=== PATIENT | male | born 1955 | race Caucasian/White ===

== ENCOUNTER 2020-04-22 07:51 | Day surgery (SDC) | payer OTHER, SELFPAY ==
[2020-04-19 10:04] VITALS: BMI 35.2
--- NOTE | 2020-04-20 09:56 | HO.ANESPROP2 ---
Documented by User: Sandy Hope 04/21/20 13:45 HPI - Anesthesia Eval Consult details Narrative: 64yo M for Colonoscopy [facility] Past Medical History Medical History (Updated 04/19/20 @ 10:15 by Stacy Canales) Arthritis Asthma Back pain COVID-19 virus antibody negative Diabetes Elevated cholesterol GERD (gastroesophageal reflux disease) History of pericarditis HTN (hypertension) Suspected sleep apnea Surgical History Surgical History (Updated 04/19/20 @ 10:15 by Stacy Canales) H/O total hip arthroplasty Hx of colonoscopy Social History Social History Smoking Status: Never smoker Use of substances other than those prescribed or required for medical reasons: No Have you been hit, kicked, punched, or otherwise hurt by someone within the past year? If so, by whom?: No Advance Directives Information Provided: No Recently lost weight without trying: No Meds Allergies Allergy/AdvReac Type Severity Reaction Status Date / Time No Known Allergies Allergy Unverified 04/07/20 15:02 [No Known Allergies*] Home Medications Medication Instructions Recorded Confirmed Type losartan 1 tab PO DAILY 04/18/20 04/22/20 History albuterol 2 mcg INHALATION Q4-6H PRN 04/19/20 04/19/20 History diltiazem HCl 1 cap PO QAM 04/19/20 04/22/20 History metformin 1,000 mg PO QAM 04/19/20 04/22/20 History metformin 500 mg PO QPM 04/19/20 04/22/20 History omeprazole 1 cap PO DAILY 04/19/20 04/22/20 History rosuvastatin 1 tab PO DAILY 04/19/20 04/22/20 History Exam Exam Date and Time: April 20, 2020 0956 Height,Weight and Vital Signs: Height 5 ft 10 in Weight 111.13 kg Pertinent Lab Results Pertinent Lab Results: 01/25/20 Na 141 K 3.8 Cl 103 CO2 25 Bun 18 (H) Creat 1.00 02/11/20 WBC 8.1 HCT 13.9 HGB 41.8 PLT 292 12/31/19 A1C 7.1 EKG 01/25/20: ST @ 113, occ and consecutive PVC, ?LVH, nonspecific ST abn Assessment and Plan Assessment Anesthesia Assessment: Chart Reviewed (04/20/20 ) Documented by User: Radha Kumar 04/22/20 09:04 [facility] Past Medical History Medical History (Updated 04/19/20 @ 10:15 by Stacy Canales) Arthritis Asthma Back pain COVID-19 virus antibody negative Diabetes Elevated cholesterol GERD (gastroesophageal reflux disease) History of pericarditis HTN (hypertension) Suspected sleep apnea Family History Family history of problems with anesthesia: No Surgical History Surgical History (Updated 04/19/20 @ 10:15 by Stacy Canales) H/O total hip arthroplasty Hx of colonoscopy History of Problems with Anesthesia: No Social History Social History Smoking Status: Never smoker Use of substances other than those prescribed or required for medical reasons: No Have you been hit, kicked, punched, or otherwise hurt by someone within the past year? If so, by whom?: No Advance Directives Information Provided: No Recently lost weight without trying: No Meds Allergies Allergy/AdvReac Type Severity Reaction Status Date / Time No Known Allergies Allergy Unverified 04/07/20 15:02 [No Known Allergies*] Home Medications Medication Instructions Recorded Confirmed Type losartan 1 tab PO DAILY 04/18/20 04/22/20 History albuterol 2 mcg INHALATION Q4-6H PRN 04/19/20 04/19/20 History diltiazem HCl 1 cap PO QAM 04/19/20 04/22/20 History metformin 1,000 mg PO QAM 04/19/20 04/22/20 History metformin 500 mg PO QPM 04/19/20 04/22/20 History omeprazole 1 cap PO DAILY 04/19/20 04/22/20 History rosuvastatin 1 tab PO DAILY 04/19/20 04/22/20 History Exam Height,Weight and Vital Signs: Vital Signs Temp Pulse Resp BP Pulse Ox 04/22/20 08:23 97.7 F 86 18 154/81 H 98 Airway Mallampati Class: II TM Dist: >3cm Neck ROM: Full Loose/Missing/Broken Teeth: No Heart: RRR Lungs: CTAB Assessment and Plan Assessment Anesthesia Assessment: Anesthesia Plan Discussed and Consent Obtained Final Anesthetic Review NPO: Yes Intake Type: Clears Intake Timing: Greater than 8 hours and Solids Intake Timing: Greater than 8 hours ASA Class: III Final Preanesthetic Review: No Changes in Pt Med Stat, Meds & Allergies Reviewed, Consent Obtained/Reviewed, Med/Surg/Anes Hx Reviewed and Anes Risks/Benef Reviewed Patient Risk: Intermediate Procedure Risk: Low Anesthetic Plan Anesthetic Plan: MAC: Disposition: Standard PACU
[2020-04-22 08:23] VITALS: BP 154/81; PULSE 86; RESP 18; TEMP 36.5; O2SAT 98
[2020-04-22 08:30] LABS: Glucose, Whole Blood 137 mg/dL (60-115)
[2020-04-22] MEDS: Lactated Ringers 1,000 ML 100 ML IVCONT (08:39)
[2020-04-22 09:11] LABS: Glucose, Whole Blood 137 mg/dL (60-115)
[2020-04-22 09:40] VITALS: BP 114/66; PULSE 79; RESP 22; TEMP 36.2; O2SAT 96
[2020-04-22 09:52] VITALS: BP 117/73; PULSE 94; RESP 18; O2SAT 95
--- NOTE | 2020-04-22 10:19 | HO.POSTANES ---
Post Anesthesia Evaluation Post Anesthesia Evaluation Vital Signs: Vital Signs Temp Pulse Resp BP Pulse Ox 04/22/20 09:52 94 18 117/73 95 04/22/20 09:40 97.1 F 79 22 H 114/66 96 04/22/20 08:23 97.7 F 86 18 154/81 H 98 Anesthesia: Monitored Mental Status: Awake Pain Control: Satisfactory Nausea/Vomiting: None Hydration: Adequate Anesthesia-Related Issues: No Anes. Related Issues
--- NOTE | 2020-04-22 13:29 | OP_ITS ---
SURGEON: Boris Mota MD INDICATIONS: Colon cancer screening. PREOPERATIVE DIAGNOSIS: POSTOPERATIVE DIAGNOSIS: PROCEDURE PERFORMED: Colonoscopy to the terminal ileum with biopsy and snare polypectomy. ESTIMATED BLOOD LOSS: COMPLICATIONS: ANESTHESIA: Monitored anesthesia care. ASSISTANTS: SPECIMENS: DESCRIPTION OF PROCEDURE: The history and physical performed. The risks and benefits of the procedure were explained to the patient and informed consent was obtained. The patient was placed in the left lateral decubitus position. A digital rectal exam was performed and was found to be normal. The Olympus pediatric video colonoscope was introduced into the rectum and advanced to the cecum without difficulty. The cecum was identified by transillumination, palpation, and identification of ileocecal valve. Examination was performed. The scope was removed. He tolerated the procedure well and was returned to the recovery area in stable condition. FINDINGS: The terminal ileum was normal. There was a 2.5 cm lipoma involving the bottom aspect of the ileocecal valve. This had a typical appearance with a pillow sign and yellowish fatty tissue on deep biopsy. Four biopsies were obtained. There was a 10 x 12 mm polyp in the right colon, which was piecemeal resected and recovered via suction. No other polyps were identified. There was mild sigmoid diverticulosis. Retroflexed examination showed small internal hemorrhoids. IMPRESSION: Colon polyp, diverticulosis. RECOMMENDATION: Follow up the biopsy results. MD PRATIK Marcelo/LEONARDO / [id number]
== END 2020-04-22 10:45 | disposition home or self-care (01) ==
PROVIDERS: PCP Internal Medicine; Visit Provider Internal Medicine Gastroenterology
PROC: 0DJD8ZZ Inspection of Lower Intestinal Tract, Via Natural or Artificial Opening Endoscopic (ICD-10-PCS; CPT 45378; principal; 2020-04-22 08:40)
DX: Z12.11 Encounter for screening for malignant neoplasm of colon (principal); D12.2 Benign neoplasm of ascending colon; K57.30 Diverticulosis of large intestine without perforation or abscess without bleeding; K64.8 Other hemorrhoids; D17.5 Benign lipomatous neoplasm of intra-abdominal organs
CPT/HCPCS: 45380; 82947; 88305

== ENCOUNTER 2020-05-09 19:23 | Outpatient (REF) | payer OTHER, SELFPAY | END 2020-05-09 19:40 | LOC: HO.SL 19:23 | PROVIDERS: Visit Provider Psychiatry & Neurology Neurology | DX: G47.33 Obstructive sleep apnea (adult) (pediatric) (principal) | CPT/HCPCS: 95811 ==

== ENCOUNTER 2020-06-09 07:26 | Outpatient (REF) | payer OTHER, SELFPAY ==
[2020-06-09 07:57] LABS: COVID-19 Test Negative (Negative)
== END 2020-06-09 07:27 | disposition home or self-care (01) ==
LOC: HO.EMPCOV 07:26
PROVIDERS: Visit Provider Internal Medicine
DX: Z20.828 Contact with and (suspected) exposure to other viral communicable diseases (principal)
CPT/HCPCS: 87635; C9803

== ENCOUNTER 2020-06-28 10:49 | Outpatient (REF) | payer OTHER, SELFPAY ==
--- NOTE | 2020-06-28 10:53 | XR_ITS ---
EXAMINATION: BILATERAL KNEE X-RAY CLINICAL INFORMATION: Right knee pain COMPARISON: None TECHNIQUE: Standing AP view of both knees and lateral and sunrise view of the right knee FINDINGS: Right: There is slight varus angulation at the knee joint. Bone alignment is otherwise normal. No fracture or dislocation is seen. There is arthritis at the medial femoral tibial and patellofemoral joints with joint space narrowing and osteophyte formation. There is a small joint effusion. Standing AP view of the left knee demonstrates medial femoral tibial joint space narrowing. XR/XR knee standing BI IMPRESSION: Right knee: Mild varus angulation. Arthritis at the medial femoral tibial and patellofemoral joints and small joint effusion. Left knee medial femoral tibial joint space narrowing.
--- NOTE | 2020-06-28 10:53 | XR_ITS ---
EXAMINATION: BILATERAL KNEE X-RAY CLINICAL INFORMATION: Right knee pain COMPARISON: None TECHNIQUE: Standing AP view of both knees and lateral and sunrise view of the right knee FINDINGS: Right: There is slight varus angulation at the knee joint. Bone alignment is otherwise normal. No fracture or dislocation is seen. There is arthritis at the medial femoral tibial and patellofemoral joints with joint space narrowing and osteophyte formation. There is a small joint effusion. Standing AP view of the left knee demonstrates medial femoral tibial joint space narrowing. XR/XR knee RT 2V IMPRESSION: Right knee: Mild varus angulation. Arthritis at the medial femoral tibial and patellofemoral joints and small joint effusion. Left knee medial femoral tibial joint space narrowing.
== END 2020-06-28 10:50 | disposition home or self-care (01) ==
LOC: HO.HOSX 10:49
PROVIDERS: PCP Internal Medicine; Referring Provider Internal Medicine; Visit Provider Orthopaedic Surgery
DX: M17.11 Unilateral primary osteoarthritis, right knee (principal)
CPT/HCPCS: 73560; 73565

== ENCOUNTER 2020-08-09 09:28 | Outpatient (REF) | payer OTHER, SELFPAY ==
[2020-08-09 10:38] LABS: Estimated Average Glucose 166 mg/dL; Hemoglobin A1c % 7.4 %
[2020-08-09 10:56] LABS: Alanine Aminotransferase 34 U/L (0-40); Albumin Level 4.4 g/dL (3.5-5.0); Alkaline Phosphatase 69 U/L (39-117); Anion Gap 16 (12-20); Aspartate Amino Transferase 21 U/L (5-37); Bilirubin Total 0.4 mg/dL (0.0-1.0); Blood Urea Nitrogen 17 mg/dL (9-16); Calcium 9.4 mg/dL (8.4-10.2); Carbon Dioxide 23 mmol/L (22-29); Chloride 103 mmol/L (96-108); Estimated Glomerular Filt Rate > 60; Glucose Random 158 mg/dL (60-115); Potassium 4.5 mmol/l (3.3-5.1); Sodium 137 mmol/L (135-145); Total Protein 7.2 g/dL (6.5-8.0)
== END 2020-08-09 09:29 | disposition home or self-care (01) ==
LOC: HO.10HDL 09:28
PROVIDERS: Visit Provider Internal Medicine
DX: E11.9 Type 2 diabetes mellitus without complications (principal); G47.33 Obstructive sleep apnea (adult) (pediatric); I10 Essential (primary) hypertension; J45.909 Unspecified asthma, uncomplicated
CPT/HCPCS: 36415; 80053; 83036

== ENCOUNTER → 2020-08-24 14:10 | Outpatient (BNVA) | payer OTHER, SELFPAY ==
--- NOTE | 2020-08-24 14:57 | HP_ITS ---
DATE OF SERVICE: 08/24/2020 HISTORY OF PRESENT ILLNESS: The patient is a 65-year-old male, who was seen in the office on 08/15/2020 for preop evaluation prior to total knee replacement on August [address] Espinosa. The patient had an EKG done in the hospital. We completed labs on August 11. REVIEW OF SYSTEMS: No fevers, chills, or sweats. No weight change. No headaches or dizziness. No chest pains or palpitations. No peripheral edema. No complaints of shortness of breath or cough. No heartburn or abdominal pain. No dysuria. Arthritis in the knees and some lower back pain that is chronic. Appetite is normal. Uses CPAP for sleeping for obstructive sleep apnea. No temperature intolerance. No complaints of seasonal allergies. No skin rashes. PAST MEDICAL HISTORY: Significant for vjz-ppjnjtl-hvbkoqzkf diabetes, osteoarthritis of the knees, back pain, elevated cholesterol, gastroesophageal reflux disease, asthma, overweight, question of TIA last year, history of colon polyps, history of left total hip replacement in the past, diabetic neuropathy. ALLERGIES: NO REPORTED ALLERGIES TO MEDICINES. FAMILY HISTORY: Please see all record. Mother had diabetes and cholesterol. Father in 70s from CVA and polycythemia. He has 2 brothers and a sister. One has high blood pressure. SOCIAL HISTORY: He is , has 3 children. 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 PHYSICAL EXAMINATION: GENERAL: He is awake and alert, in no distress. Afebrile. VITAL SIGNS: Pulse 64, respirations 12, blood pressure 120/66, temperature 98.8, O2 of 98% sat on room air. HEENT: Pupils equal. TMs clear. Pharynx clear. NECK: Supple. No lymph nodes, bruits, or masses. HEART: Sounds S1 and S2. Regular rate. LUNGS: Clear. ABDOMEN: Soft, nontender. Positive bowel sounds. No HSM. EXTREMITIES: No clubbing, cyanosis, or edema. One to 2+ pulses. Cranial nerves II through XII are intact. PRESENT MEDICATIONS: Metformin 1500 mg a day, Ventolin inhaler 2 puffs every 4 hours as needed, rosuvastatin 5 mg a day, valsartan 80 mg a day, Prilosec 20 mg a day, diltiazem 240 mg CD once a day, ibuprofen 600 p.o. b.i.d. p.r.n. pain, prior to surgery. LABORATORY DATA: Labs were done on August 11. Normal electrolytes. Sugar 127, calcium 9.4. Normal kidney function. CBC was normal. EKG was completed already at the hospital. Borderline voltage criteria for LVH. No acute ischemic changes. Regular rate and rhythm. ASSESSMENT AND PLAN: 1. Preop right total knee replacement for August 29. The patient is medically stable for the proposed procedure. 2. Emm-icqqtcb-ytzfaqncm diabetes. Continue treatment. 3. Back pain, chronic. Follow p.r.n. Tylenol, off ibuprofen preoperatively. 4. Elevated cholesterol. Continue Crestor. 5. Hypertension. Continue valsartan. 6. Acid reflux disease, on Prilosec. 7. Asthma. Continue inhaler. 8. Obstructive sleep apnea. Continue to use CPAP. I will be available if there are any medical issues. Regarding medical management or questions and medications, please do not hesitate to call. MD HOLLI Turner/MODL / [phone]
== END ==
PROVIDERS: PCP Internal Medicine; Visit Provider Physician Assistant

== ENCOUNTER 2020-08-29 06:11 | Inpatient (IN) | payer OTHER, SELFPAY ==
--- NOTE | 2020-08-11 14:44 | ECG_ITS ---
Test Reason : PREOP Blood Pressure : / mmHG Vent. Rate : 074 BPM Atrial Rate : 074 BPM P-R Int : 144 ms QRS Dur : 086 ms QT Int : 364 ms P-R-T Axes : 047 -11 025 degrees QTc Int : 404 ms Normal sinus rhythm Moderate voltage criteria for LVH, may be normal variant Borderline ECG When compared with ECG of 25-JAN-2020 18:00, Premature ventricular complexes are no longer Present Vent. rate has decreased BY 39 BPM Referred By: Opal Almanzar Electronically Signed By:TATIANA CALLOWAY
[2020-08-11 15:20] LABS: MANUAL DIFF FLAG NO
[2020-08-11 15:23] LABS: Basophils Absolute Auto 0.1 X10*3/uL (0.0-0.2); Basophils Percent Auto 0.8 % (0-2); Eosinophils Absolute Auto 0.4 X10*3/uL (0.0-0.4); Eosinophils Percent Auto 4.2 % (0-4); Hematocrit 44.4 % (42-52); Hemoglobin 14.9 g/dl (14.0-18.0); Imm Gran Abs Auto 0.02 X10*3/uL (0.00-0.03); Imm Gran Pct Auto 0.2 % (0.0-0.4); Lymphocytes Absolute Auto 2.3 X10*3/uL (1.2-4.9); Lymphocytes Percent Auto 26.2 % (20-40); Mean Corpuscular HGB Conc 33.6 g/dl (31.0-36.0); Mean Corpuscular Hemoglobin 29.9 pg (27.0-33.0); Mean Platelet Volume 10.6 fL (9.4-12.4); Monocytes Absolute Auto 0.7 X10*3/uL (0.1-1.2); Monocytes Percent Auto 8.5 % (2-11); Neutrophils Absolute Auto 5.2 X10*3/uL (2.0-8.3); Neutrophils Percent Auto 60.1 % (45-73); Platelet Count 298 X10*3/uL (160-400); Red Blood Count 4.99 X10*6/uL (4.60-5.80); Red Cell Distribution Width 12.7 % (11.0-16.0); White Blood Count 8.6 X10*3/uL (4.8-10.8)
[2020-08-11 15:34] LABS: Estimated Average Glucose 169 mg/dL; Hemoglobin A1c % 7.5 %
[2020-08-11 15:44] LABS: Anion Gap 14 (12-20); Blood Urea Nitrogen 18 mg/dL (9-16); Calcium 9.4 mg/dL (8.4-10.2); Carbon Dioxide 29 mmol/L (22-29); Chloride 100 mmol/L (96-108); Estimated Glomerular Filt Rate > 60; Glucose Random 127 mg/dL (60-115); Potassium 5.2 mmol/l (3.3-5.1); Sodium 138 mmol/L (135-145)
[2020-08-18 12:04] VITALS: BMI 36.1
--- NOTE | 2020-08-18 12:11 | HO.ANESPROP2 ---
Documented by User: Sandy Aldananey 08/25/20 12:07 HPI - Anesthesia Eval Consult details Narrative: 65yo M for Knee Replacement Total,right s/p L YANIRA 01/2019 PCP cleared [facility] Past Medical History Medical History Arthritis Asthma Back pain COVID-19 vaccine administered COVID-19 virus antibody negative Degenerative disc disease Diabetes Elevated cholesterol GERD (gastroesophageal reflux disease) History of pericarditis HTN (hypertension) Lab test negative for COVID-19 virus Scoliosis Sleep apnea Family History Family history of problems with anesthesia: No Surgical History Surgical History H/O total hip arthroplasty Hx of colonoscopy History of Problems with Anesthesia: No Social History Social History Are you a primary child care associate teacher to a significant other at home: No Do you presently have visiting nurse or other home services: No Alcohol intake: current Alcohol intake frequency: a few times a month Alcohol type: beer Smoking Status: Never smoker Use of substances other than those prescribed or required for medical reasons: No Have you been hit, kicked, punched, or otherwise hurt by someone within the past year? 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 No CP/SOB with walking at work. Meds Allergies Allergy/AdvReac Type Severity Reaction Status Date / Time No Known Allergies Allergy Verified 08/24/20 14:13 [No Known Allergies*] Home Medications Medication Instructions Recorded Confirmed Type losartan 25 mg PO DAILY 04/18/20 08/18/20 History albuterol 2 mcg INHALATION Q4-6H PRN 04/19/20 08/18/20 History diltiazem HCl 1 cap PO QAM 04/19/20 08/18/20 History metformin 1,000 mg PO QAM 04/19/20 08/18/20 History metformin 500 mg PO QPM 04/19/20 08/18/20 History omeprazole 1 cap PO DAILY 04/19/20 08/18/20 History rosuvastatin 10 mg tablet 10 mg PO BEDTIME 06/28/20 08/18/20 History aspirin [Aspirin Low-Strength] 81 mg PO DAILY 08/18/20 08/18/20 History Exam Exam Date and Time: August 18, 2020 1211 Pertinent Lab Results Pertinent Lab Results: Laboratory Tests 08/11/20 08/11/20 08/11/20 14:55 14:55 14:55 WBC 8.6 RBC 4.99 Hgb 14.9 Hct 44.4 MCV 89.0 MCH 29.9 MCHC 33.6 RDW 12.7 Plt Count 298 MPV 10.6 Immature Gran % (Auto) 0.2 Neut % (Auto) 60.1 Lymph % (Auto) 26.2 [place] % (Auto) 8.5 Eos % (Auto) 4.2 H Baso % (Auto) 0.8 Lymph # (Auto) 2.3 [place] # (Auto) 0.7 Eos # (Auto) 0.4 Baso # (Auto) 0.1 Abs Immat Gran (auto) 0.02 Absolute Neuts (auto) 5.2 Absolute Nucleated RBC 0.000 Nucleated RBC % (auto) 0.0 Sodium 138 Potassium 5.2 H Chloride 100 Carbon Dioxide 29 Anion Gap 14 BUN 18 H Creatinine 1.00 Estim Creat Clear Calc TNP Estimated GFR > 60 Random Glucose 127 H Estimat Average Glucose 169 Hemoglobin A1c % 7.5 Calcium 9.4 Narrative Narrative: EKG 08/11/20 Normal sinus rhythm Moderate voltage criteria for LVH, may be normal variant Borderline ECG When compared with ECG of 25-JAN-2020 18:00, Premature ventricular complexes are no longer Present Vent. rate has decreased BY 39 BPM Airway Mallampati Class: II TM Dist: >3cm Neck ROM: Full Loose/Missing/Broken Teeth: Yes (Missing upper side teeth, capped molars) Heart: RRR Lungs: CTAB Assessment and Plan Assessment Anesthesia Assessment: Anesthesia Plan Discussed and PAT Visit Documented by User: Mulugeta Caceres MD 08/29/20 08:33 [facility] Past Medical History Medical History Arthritis Asthma Back pain COVID-19 vaccine administered COVID-19 virus antibody negative Degenerative disc disease Diabetes Elevated cholesterol GERD (gastroesophageal reflux disease) History of pericarditis HTN (hypertension) Lab test negative for COVID-19 virus Scoliosis Sleep apnea Surgical History Surgical History H/O total hip arthroplasty Hx of colonoscopy Social History Social History Are you a primary child care associate teacher to a significant other at home: No Do you presently have visiting nurse or other home services: No Alcohol intake: current Alcohol intake frequency: a few times a month Alcohol type: beer Smoking Status: Never smoker Use of substances other than those prescribed or required for medical reasons: No Have you been hit, kicked, punched, or otherwise hurt by someone within the past year? 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 Allergies Allergy/AdvReac Type Severity Reaction Status Date / Time No Known Allergies Allergy Verified 08/24/20 14:13 [No Known Allergies*] Home Medications Medication Instructions Recorded Confirmed Type losartan 25 mg PO DAILY 04/18/20 08/18/20 History albuterol 2 mcg INHALATION Q4-6H PRN 04/19/20 08/18/20 History diltiazem HCl 1 cap PO QAM 04/19/20 08/18/20 History metformin 1,000 mg PO QAM 04/19/20 08/18/20 History metformin 500 mg PO QPM 04/19/20 08/18/20 History omeprazole 1 cap PO DAILY 04/19/20 08/18/20 History rosuvastatin 10 mg tablet 10 mg PO BEDTIME 06/28/20 08/18/20 History aspirin [Aspirin Low-Strength] 81 mg PO DAILY 08/18/20 08/18/20 History Assessment and Plan Assessment Anesthesia Assessment: Anesthesia Plan Discussed, PAT Visit and Chart Reviewed Final Anesthetic Review NPO: Yes Final Preanesthetic Review: No Changes in Pt Med Stat, Meds/Allgs Chart Reviewed, Consent Obtained/Reviewed and Anes Risks/Benef Reviewed Patient Risk: High Procedure Risk: Intermediate Anesthetic Plan Anesthetic Plan: MAC:, Spinal and Regional Block Disposition: Standard PACU
[2020-08-18 12:28] VITALS: BP 169/83; PULSE 88; RESP 20; O2SAT 99
[2020-08-18 14:35] LABS: MRSA Nasal PCR NEGATIVE (Negative); SA Nasal PCR NEGATIVE (Negative)
[2020-08-29] VITALS (13 sets, daily range): BP systolic 131–165; BP diastolic 74–84; PULSE 70–110; RESP 16–20; TEMP 36.5–37.1; O2SAT 93–99
--- NOTE | ~2020-08-29 | XR_ITS ---
EXAMINATION:XR knee RT 2V CLINICAL INFORMATION: Postoperative COMPARISON: None available at the time of this dictation. TECHNIQUE: Frontal and lateral views acquired FINDINGS: BONES: No fracture or dislocation is present. JOINTS: There is total knee replacement prosthesis device, both femoral and tibial component of which is properly positioned maintaining normal alignment's. No radiologic evidence of device loosening. Patella properly positioned. SOFT TISSUE: Subcutaneous emphysema from surgery. XR/XR knee RT 2V IMPRESSION: Postoperative changes of from total Knee replacement. Hardware properly positioned maintaining normal anatomic alignment's.
[2020-08-29] MEDS: Gabapentin 600 MG TABLET PO (06:42)
[2020-08-29 06:43] LABS: Glucose, Whole Blood 170 mg/dL (60-115)
[2020-08-29 06:46] LABS: COVID-19 Test Negative (Negative); IDNOW Serial# 9DD0AD1C
[2020-08-29] MEDS: Lactated Ringers 1,000 ML 100 ML IVCONT (07:00)
--- NOTE | 2020-08-29 09:45 | PM.PRCOR ---
Brief Operative Note Date of procedure: 08/29/20 Pre-op diagnosis: OA RIGHT KNEE Post-op diagnosis: same Procedure: RIGHT TKA Anesthesia: regional and spinal Surgeon: jL Espinosa Chemist Food: Opal Almanzar Estimated blood loss (mL): 50 Condition: stable Disposition: PACU
[2020-08-29] MEDS: Ketorolac Tromethamine 30 MG/ML VIAL IVPUSH (10:28)
[2020-08-29] MEDS: Acetaminophen 325 MG TABLET 650 MG PO ×2 (14:24→19:24)
[2020-08-29] MEDS: oxyCODONE HCl Immed Release 5 MG TABLET 10 MG PO ×2 (14:24→19:25)
[2020-08-29] MEDS: Ketorolac Tromethamine 15 MG/ML VIAL IVPUSH ×2 (14:25→19:25)
[2020-08-29] MEDS: ceFAZolin Sodium/Dextrose,Iso 2 GM/50 ML PIGGYBACK IV (14:26)
--- NOTE | 2020-08-29 15:08 | PM.IMCN ---
History of Present Illness Data of Consult Service Date: 08/29/20 Requesting physician: Lj Espinosa Primary Care Provider: Franklin Baldwin MD HPI Reason for consult: medical managment 65 year male with DM, HTN, HLD, SHANIQUE, GERD, degenerative arthritis of right knee and underwent elective Right TKR that has failed conservative treatment with persistent pain and has undergone elective right knee replacement today by Dr. Espinosa and being evaluated post operatively for medical management of his diabertes which under control with Metformin, HTN is controlled with Losartan and Diltiazem, he has HLD and is Rozuvostatin and uses CPA for SHANIQUE. Over all is doing well now. Pain is reasonably well controlled and has no other complaint at this time. Review of Systems Review of Systems: Yes all other systems are reviewed and are negative Constitutional: Constitutional: Reports no additional constitutional complaints Cardiovascular: Cardiovascular: Denies chest pain and Denies dyspnea Respiratory: Respiratory: Denies dyspnea Gastrointestinal: Gastrointestinal: Denies abdominal pain Musculoskeletal: Musculoskeletal: Reports arthralgias (right knee) Psychiatric: Psychiatric: Denies depression Endocrine: Endocrine: Denies cold intolerance [facility] Medical History (Updated 08/29/20 @ 15:10 by Adi Yun MD) Arthritis Asthma Back pain COVID-19 vaccine administered COVID-19 virus antibody negative Degenerative disc disease Diabetes Elevated cholesterol GERD (gastroesophageal reflux disease) History of pericarditis HTN (hypertension) Lab test negative for COVID-19 virus Scoliosis Sleep apnea Surgical History H/O total hip arthroplasty Hx of colonoscopy Social History Are you a primary animal care assistant to a significant other at home: No Do you presently have visiting nurse or other home services: No Alcohol intake: current Alcohol intake frequency: a few times a month Alcohol type: beer Smoking Status: Never smoker Use of substances other than those prescribed or required for medical reasons: No Have you been hit, kicked, punched, or otherwise hurt by someone within the past year? 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 Allergies Allergy/AdvReac Type Severity Reaction Status Date / Time No Known Allergies Allergy Verified 08/24/20 14:13 [No Known Allergies*] Home Medications Medication Instructions Recorded Confirmed Type losartan 25 mg PO DAILY 04/18/20 08/18/20 History albuterol 2 mcg INHALATION Q4-6H PRN 04/19/20 08/18/20 History diltiazem HCl 1 cap PO QAM 04/19/20 08/18/20 History metformin 1,000 mg PO QAM 04/19/20 08/18/20 History metformin 500 mg PO QPM 04/19/20 08/18/20 History omeprazole 1 cap PO DAILY 04/19/20 08/18/20 History rosuvastatin 10 mg tablet 10 mg PO BEDTIME 06/28/20 08/18/20 History aspirin [Aspirin Low-Strength] 81 mg PO DAILY 08/18/20 08/18/20 History Physical Exam Vital Signs and Narrative: Vital Signs: Last Vital Signs Temp 97.8 F 08/29/20 12:48 Pulse 72 08/29/20 13:45 Resp 17 08/29/20 12:48 BP 144/77 H 08/29/20 13:45 Pulse Ox 98 08/29/20 13:45 Body Mass Index 36.1 Const: General: cooperative and comfortable Orientation/consciousness: patient oriented x3 HENMT: Head: Yes normal to inspection Neck: Yes normal visual inspection Chest: Chest palpation & inspection: normal inspection of the chest Resp: Effort & Inspection: normal respiratory effort Auscultation: clear to auscultation bilaterally Cardio: Jugular venous distension: no JVD Rate: regular rate Rhythm: regular rhythm and abnormal rhythm Heart sounds: S1 normal heart sound present and S2 normal heart sound present GI: Inspection: Yes normal to inspection Percussion: Yes normal to percussion Auscultation: normal bowel sounds Skin: General skin exam: no rashes or lesions noted Neuro: Other: No focal deficit General: patient oriented x3 Results Labs CBC and Chem 7: 08/11/20 14:55 08/11/20 14:55 Labs: Laboratory Results - last 24 hr 08/29/20 08/29/20 06:15 06:40 POC Glucose 170 H COVID-19 (EDDIE) Negative COVID-19 Clin Com See Note Assessment and Plan (1) Diabetes: Problem details: type 2-FBS usually 128-144 NIDDM Status: Acute (2) HTN (hypertension): Status: Acute (3) Degenerative disc disease: Status: Acute (4) GERD (gastroesophageal reflux disease): Problem details: omeprazole controls symptoms Status: Acute (5) Sleep apnea: Problem details: per PSG 04/2020-using CPAP Status: Acute (6) Primary osteoarthritis of right knee: Status: Acute 65 year male with DM, HTN, HLD, GERD, degenerative arthritis of right knee and underwent elective Right TKR today and doing well post op 1. s/p Right TKR--mangement per ortho 2.DM--on Metformin 1500 mg /day -continue Metformin -Add SSI -Diabetic diet. 3. HTN--continue Losartan and Diltiazem 4. GERD--Omeprazole 5. HLD--Rosuvostatin 6.SHANIQUE--CPAP to use own CPAP at night DVT Prophylaxis to be determined by ortho
[2020-08-29] MEDS: 0.9 % Sodium Chloride Flush 3 ML SYRINGE IVFLUSH (16:23)
[2020-08-29] MEDS: metFORMIN HCl 500 MG TABLET PO (20:15)
[2020-08-30] VITALS (9 sets, daily range): BP systolic 128–174; BP diastolic 72–90; PULSE 85–112; RESP 18–20; TEMP 36.2–37.2; O2SAT 94–97; BMI 36.1
[2020-08-30] MEDS: oxyCODONE HCl Immed Release 5 MG TABLET 10 MG PO ×4 (02:13→18:50)
[2020-08-30] MEDS: Ketorolac Tromethamine 15 MG/ML VIAL IVPUSH ×4 (02:14→18:49)
[2020-08-30] MEDS: Acetaminophen 325 MG TABLET 650 MG PO ×4 (02:14→18:50)
[2020-08-30] MEDS: 0.9 % Sodium Chloride Flush 3 ML SYRINGE IVFLUSH ×3 (02:15→17:17)
[2020-08-30 06:19] LABS: Hematocrit 39.5 % (42-52); Hemoglobin 12.9 g/dl (14.0-18.0)
--- NOTE | 2020-08-30 06:40 | HO.POSTANES ---
Post Anesthesia Evaluation Post Anesthesia Evaluation Vital Signs: Vital Signs Temp Pulse Resp BP Pulse Ox 08/30/20 04:00 97.3 F 104 H 18 160/81 H 96 08/29/20 23:54 97.7 F 110 H 18 163/81 H 96 08/29/20 19:30 98.7 F 99 18 165/80 H 96 Anesthesia: Spinal Mental Status: Awake Pain Control: Satisfactory Nausea/Vomiting: None Hydration: Adequate Anesthesia-Related Issues: No Anes. Related Issues
--- NOTE | 2020-08-30 07:35 | P.PNOP_ITS ---
Subjective Subjective Date of Service: 08/30/20 Interval history: POD1 s/p rtka pt. resting comfortably in bed. No overnight events. Pain well managed. Denies SOB, chest pain, palpitations. Physical Exam Vital Signs: Vital Signs: Last Vital Signs Temp 97.3 F 08/30/20 04:00 Pulse 104 H 08/30/20 04:00 Resp 18 08/30/20 04:00 BP 160/81 H 08/30/20 04:00 Pulse Ox 96 08/30/20 04:00 Body Mass Index 36.1 Const: General: cooperative, healthy appearing and no acute distress Resp: Effort & Inspection: normal respiratory effort and able to speak in complete sentences Cardio: Rate: regular rate Peripheral pulses: Peripheral pulses 2+ throughout GI: Palpation (GI): Soft to palpation Skin: Lesions: no lesions Rashes: no rashes Extrem: Other: Rt knee no redenss, drainage, ecchymosis. Dressing intact. NVI. Able to perform straight leg raise. Progress Note: A&P Assessment and plan (1) Status post total right knee replacement: Status: Acute Assessment and Plan: Continue pain mgmnt Begin ASA for dvt ppx begin PT for RT TKA Dispo planning-Pending PT eval, pain mgmnt Fall Risk Details Current Medications: Current Medications Generic Name Dose Route Start Last Admin Trade Name Freq PRN Reason Stop Dose Admin Acetaminophen 650 mg 08/29/20 13:00 08/30/20 07:20 Acetaminophen 325 Mg Tablet PO 650 mg Q6H SHAHLA Administration Albuterol Sulfate 2 puff 08/29/20 15:45 Albuterol Sulfate 90 Mcg 8 Gm Inhaler INHALE Q4H PRN Shortness Of Breath Aspirin 325 mg 08/30/20 22:00 Aspirin 325 Mg Tablet PO BID SHAHLA Diltiazem HCl 240 mg 08/29/20 15:30 08/29/20 16:22 Diltiazem Hcl Cd 240 Mg Cap.Er.Deg PO Not Given DAILY [facility] Protocol Lactated Ringer's 1,000 mls @ 100 mls/hr 08/29/20 06:15 08/30/20 03:15 Lr IVCONT Not Given .Q10H SHAHLA Ketorolac Tromethamine 15 mg 08/29/20 13:00 08/30/20 07:21 Ketorolac Tromethamine 15 Mg/Ml Vial IVPUSH 15 mg Q6H SHAHLA Administration Losartan Potassium 25 mg 08/30/20 09:00 Losartan Potassium 25 Mg Tablet PO DAILY [facility] Protocol Metformin HCl 500 mg 08/29/20 21:00 08/29/20 20:15 Metformin Hcl 500 Mg Tablet PO 500 mg BEDTIME SHAHLA Administration Metformin HCl 1,000 mg 08/30/20 09:00 Metformin Hcl 1,000 Mg Tablet PO DAILY SHAHLA Morphine Sulfate 2 mg 08/29/20 12:32 Morphine Sulfate 2 Mg/Ml Cartridge IVPUSH Q2H PRN Pain, Severe (Pain Scale 7-10) Naloxone HCl 0.2 mg 08/29/20 12:32 Naloxone Hcl 0.4 Mg/Ml Vial IVPUSH Q2M PRN Excessive sedation or RR < 8 Omeprazole 20 mg 08/30/20 09:00 Omeprazole 20 Mg Capsule.Dr PO DAILY SHAHLA Ondansetron HCl 4 mg 08/29/20 12:32 Ondansetron Hcl 4 Mg/2 Ml Vial IVPUSH Q8H PRN Nausea and Vomiting Oxycodone HCl 10 mg 08/29/20 13:00 08/30/20 07:21 Oxycodone Hcl Immed Release 5 Mg Tablet PO 10 mg Q6H SHAHLA Administration Sodium Chloride 3 ml 08/29/20 16:00 08/30/20 07:22 0.9 % Sodium Chloride Flush 3 Ml Syringe IVFLUSH 3 ml QSHIFT SHAHLA Administration Time Spent With Patient Time: Total time spent is greater than 50% in coordination of care (as documented) at patient's floor/unit and/or counseling patient: Time with patient: less than 15 minutes
[2020-08-30 09:43] LABS: Creatinine Clr Calc Pharmacy 71.5; Estimated Glomerular Filt Rate 55
[2020-08-30] MEDS: metFORMIN HCl 1,000 MG TABLET 1000 MG PO (09:48)
[2020-08-30] MEDS: dilTIAZem HCL CD 240 MG CAP.ER.DEG PO (09:48)
[2020-08-30] MEDS: Losartan Potassium 25 MG TABLET PO (09:49)
[2020-08-30] MEDS: Omeprazole 20 MG CAPSULE.DR PO (09:49)
--- NOTE | 2020-08-30 10:15 | MHC.CM.PN ---
met with pt who is likley to be dcd tomorrow with home pt which will be provided by [facility]
--- NOTE | 2020-08-30 10:15 | HO.PM.IMPN ---
Subjective Subjective Date of Service: 08/30/20 Interval History: Seen in follow-up for a consultation s/p knee replacement. pain is well controlled and he did well with physical therapy. Constitutional Constitutional: Reports no additional constitutional complaints Cardiovascular Cardiovascular: Denies chest pain and Denies dyspnea Respiratory Respiratory: Denies dyspnea Gastrointestinal Gastrointestinal: Denies abdominal pain Musculoskeletal Musculoskeletal: Reports arthralgias (right knee) Endocrine Endocrine: Denies cold intolerance Physical Exam Vital Signs: Vital Signs: Last Vital Signs Temp 98.2 F 08/30/20 08:00 Pulse 112 H 08/30/20 08:00 Resp 19 08/30/20 08:00 BP 174/80 H 08/30/20 08:00 Pulse Ox 97 08/30/20 08:00 Body Mass Index 36.1 Const: General: cooperative and comfortable Orientation/consciousness: patient oriented x3 HENMT: Head: Yes normal to inspection Neck: Neck: Yes normal visual inspection Chest: Chest palpation & inspection: normal inspection of the chest Resp: Effort & Inspection: normal respiratory effort Auscultation: clear to auscultation bilaterally Cardio: Jugular venous distension: no JVD Rate: regular rate Rhythm: regular rhythm and abnormal rhythm Heart sounds: S1 normal heart sound present and S2 normal heart sound present GI: Inspection: Yes normal to inspection Percussion: Yes normal to percussion Auscultation: normal bowel sounds Skin: Other: wound d/c/i General skin exam: no rashes or lesions noted Neuro: Other: No focal deficit General: patient oriented x3 Objective Data Current Medications Generic Name Dose Route Start Last Admin Trade Name Freq PRN Reason Stop Dose Admin Acetaminophen 650 mg 08/29/20 13:00 08/30/20 07:20 Acetaminophen 325 Mg Tablet PO 650 mg Q6H [facility] Administration Albuterol Sulfate 2 puff 08/29/20 15:45 Albuterol Sulfate 90 Mcg 8 Gm Inhaler INHALE Q4H PRN Shortness Of Breath Aspirin 325 mg 08/30/20 22:00 Aspirin 325 Mg Tablet PO BID [facility] Diltiazem HCl 240 mg 08/29/20 15:30 08/30/20 09:48 Diltiazem Hcl Cd 240 Mg Cap.Er.Deg PO 240 mg DAILY [facility] Administration Protocol Ketorolac Tromethamine 15 mg 08/29/20 13:00 08/30/20 07:21 Ketorolac Tromethamine 15 Mg/Ml Vial IVPUSH 15 mg Q6H SHAHLA Administration Losartan Potassium 25 mg 08/30/20 09:00 08/30/20 09:49 Losartan Potassium 25 Mg Tablet PO 25 mg DAILY SHAHLA Administration Protocol Metformin HCl 500 mg 08/29/20 21:00 08/29/20 20:15 Metformin Hcl 500 Mg Tablet PO 500 mg BEDTIME SHAHLA Administration Metformin HCl 1,000 mg 08/30/20 09:00 08/30/20 09:48 Metformin Hcl 1,000 Mg Tablet PO 1,000 mg DAILY SHAHLA Administration Morphine Sulfate 2 mg 08/29/20 12:32 Morphine Sulfate 2 Mg/Ml Cartridge IVPUSH Q2H PRN Pain, Severe (Pain Scale 7-10) Naloxone HCl 0.2 mg 08/29/20 12:32 Naloxone Hcl 0.4 Mg/Ml Vial IVPUSH Q2M PRN Excessive sedation or RR < 8 Omeprazole 20 mg 08/30/20 09:00 08/30/20 09:49 Omeprazole 20 Mg Capsule. PO 20 mg DAILY SHAHLA Administration Ondansetron HCl 4 mg 08/29/20 12:32 Ondansetron Hcl 4 Mg/2 Ml Vial IVPUSH Q8H PRN Nausea and Vomiting Oxycodone HCl 10 mg 08/29/20 13:00 08/30/20 07:21 Oxycodone Hcl Immed Release 5 Mg Tablet PO 10 mg Q6H SHAHLA Administration Sodium Chloride 3 ml 08/29/20 16:00 08/30/20 07:22 0.9 % Sodium Chloride Flush 3 Ml Syringe IVFLUSH 3 ml QSHIFT SHAHLA Administration Labs CBC & Chem 7: 08/30/20 05:38 08/30/20 09:07 Assessment and Plan (1) Diabetes: Problem details: type 2-FBS usually 128-144 NIDDM Status: Acute (2) HTN (hypertension): Status: Acute (3) Degenerative disc disease: Status: Acute (4) GERD (gastroesophageal reflux disease): Problem details: omeprazole controls symptoms Status: Acute (5) Sleep apnea: Problem details: per PSG 04/2020-using CPAP Status: Acute (6) Primary osteoarthritis of right knee: Status: Acute Assessment and Plan: 65 year male with DM, HTN, HLD, GERD, degenerative arthritis of right knee and underwent elective Right TKR today and doing well post op 1. s/p Right TKR, POD1--mangement per ortho 2.DM--on Metformin 1500 mg /day -continue Metformin -Add SSI -Diabetic diet. 3. HTN--BP is high this morning, continue Losartan and Diltiazem 4. GERD--Omeprazole 5. HLD--Rosuvostatin 6.SHANIQUE--CPAP to use own CPAP at night DVT Prophylaxis ASA
[2020-08-30 11:58] LABS: Glucose, Whole Blood 249 mg/dL (60-115)
[2020-08-30] MEDS: Insulin Lispro 100 UNIT/ML 3 ML VIAL SUBCUT ×3 (12:39→21:10)
[2020-08-30 16:19] LABS: Glucose, Whole Blood 184 mg/dL (60-115)
[2020-08-30 21:09] LABS: Glucose, Whole Blood 187 mg/dL (60-115)
[2020-08-30] MEDS: Aspirin 325 MG TABLET PO (21:10)
[2020-08-30] MEDS: metFORMIN HCl 500 MG TABLET PO (21:11)
[2020-08-31] MEDS: Ketorolac Tromethamine 15 MG/ML VIAL IVPUSH ×2 (00:48→06:49)
[2020-08-31] MEDS: oxyCODONE HCl Immed Release 5 MG TABLET 10 MG PO ×2 (00:49→06:48)
[2020-08-31] MEDS: Acetaminophen 325 MG TABLET 650 MG PO ×2 (00:49→06:49)
[2020-08-31] MEDS: 0.9 % Sodium Chloride Flush 3 ML SYRINGE IVFLUSH ×2 (00:50→08:30)
[2020-08-31 03:42] VITALS: BP 124/70; PULSE 86; RESP 20; TEMP 36.7; O2SAT 95
[2020-08-31 07:41] VITALS: BP 124/70; PULSE 86; O2SAT 95
[2020-08-31 08:00] VITALS: BP 141/78; PULSE 105; RESP 18; TEMP 36.6; O2SAT 93
[2020-08-31 08:23] LABS: Glucose, Whole Blood 190 mg/dL (60-115)
[2020-08-31 08:28] VITALS: BP 141/78; PULSE 105
[2020-08-31] MEDS: dilTIAZem HCL CD 240 MG CAP.ER.DEG PO (08:28)
[2020-08-31] MEDS: Insulin Lispro 100 UNIT/ML 3 ML VIAL SUBCUT (08:28)
[2020-08-31 08:29] VITALS: BP 141/78; PULSE 105
[2020-08-31] MEDS: Losartan Potassium 25 MG TABLET PO (08:29)
[2020-08-31] MEDS: Aspirin 325 MG TABLET PO (08:29)
[2020-08-31] MEDS: metFORMIN HCl 1,000 MG TABLET 1000 MG PO (08:29)
[2020-08-31] MEDS: Omeprazole 20 MG CAPSULE.DR PO (08:29)
--- NOTE | 2020-08-31 08:42 | P.DS_ITS ---
DS: Providers Provider Date of Service: 08/31/20 Date of admission: 08/29/20 06:11 Primary care physician: Franklin Baldwin MD Consults: 08/29/20 12:32 Consult to Hospitalist Routine Consulting Provider: Hospitalist DS: Diagnosis Discharge Diagnosis (1) Status post total right knee replacement: Status: Acute Problem details: Mr. Li is a 65 yo male who presented to the office for ongoing right knee pain. He was found to have OA of the right knee. After failing all conservative measures he continued to have difficulty with daily activities; therefore, he consented to move forward with RT TKA. DS: Medications Discharge Medications Home Medications: Home Medications Medication Instructions Recorded Confirmed losartan 25 mg PO DAILY 04/18/20 08/18/20 albuterol 2 mcg INHALATION Q4-6H PRN 04/19/20 08/18/20 diltiazem HCl 1 cap PO QAM 04/19/20 08/18/20 metformin 1,000 mg PO QAM 04/19/20 08/18/20 metformin 500 mg PO QPM 04/19/20 08/18/20 rosuvastatin 10 mg tablet 10 mg PO BEDTIME 06/28/20 08/18/20 Previous Rx's Medication Instructions Recorded acetaminophen 650 mg PO Q6H 30 Days #240 tab 08/30/20 aspirin 325 mg PO BID 14 Days #28 tab 08/30/20 omeprazole 1 cap PO DAILY 30 Days #0 cap 08/30/20 oxycodone 10 mg PO Q6H 7 Days #28 tab 08/30/20 DS: Summary Hospital Course Hospital Course: The patient underwent a successful RT TKA, was transferred to PACU and then to the floor to recover. During their stay, their vitals were stable, afebrile at 97.8. Labs were unremarkable, H/H 12.9/39.5. POD 1 he was started on ASA for DVT ppx, they also received PT services twice a day. Prior to discharge, their dressing was change, incision clean dry and intact, new Aquacel dressing applied and the plan was to be discharged home with VNA services,. Time Spent with Patient Time attestation: Total time spent providing and/or coordinating discharge services: Discharge coordination time: Less than 30 minutes Physical Exam Vital Signs: Vital Signs: Last Vital Signs Temp 97.8 F 08/31/20 08:00 Pulse 105 H 08/31/20 08:29 Resp 18 08/31/20 08:00 BP 141/78 H 08/31/20 08:29 Pulse Ox 93 08/31/20 08:00 Body Mass Index 36.1 Const: General: cooperative, healthy appearing and no acute distress Resp: Effort & Inspection: normal respiratory effort and able to speak in complete sentences Cardio: Rate: regular rate Peripheral pulses: Peripheral pulses 2+ throughout GI: Palpation (GI): Soft to palpation Skin: General skin exam: no rashes or lesions noted Extrem: Other: Right knee incision c/d/i. No erythema, mild swelling. Calf supple non tender. DS: Data Data Completed and Pending Pending studies at discharge: Pending at discharge 08/29/20 10:05 Surgical Path [Surgical] [PTH] Routine Labs on day of discharge: Laboratory Tests 08/11/20 08/11/20 08/11/20 14:55 14:55 14:55 WBC 8.6 RBC 4.99 Hgb 14.9 Hct 44.4 MCV 89.0 MCH 29.9 MCHC 33.6 RDW 12.7 Plt Count 298 MPV 10.6 Immature Gran % (Auto) 0.2 Neut % (Auto) 60.1 Lymph % (Auto) 26.2 [place] % (Auto) 8.5 Eos % (Auto) 4.2 H Baso % (Auto) 0.8 Lymph # (Auto) 2.3 [place] # (Auto) 0.7 Eos # (Auto) 0.4 Baso # (Auto) 0.1 Abs Immat Gran (auto) 0.02 Absolute Neuts (auto) 5.2 Absolute Nucleated RBC 0.000 Nucleated RBC % (auto) 0.0 Sodium 138 Potassium 5.2 H Chloride 100 Carbon Dioxide 29 Anion Gap 14 BUN 18 H Creatinine 1.00 Estim Creat Clear Calc TNP Estimated GFR > 60 POC Glucose Random Glucose 127 H Estimat Average Glucose 169 Hemoglobin A1c % 7.5 Calcium 9.4 Nasal Screen MRSA (PCR) Nasal S. aureus Screen Nasal MRSA/S.aureus Interp COVID-19 ([facility]) COVID-19 Clin Com Blood Type Antibody Screen 08/18/20 08/18/20 08/29/20 13:00 13:15 06:15 WBC RBC Hgb Hct MCV MCH MCHC RDW Plt Count MPV Immature Gran % (Auto) Neut % (Auto) Lymph % (Auto) [place] % (Auto) Eos % (Auto) Baso % (Auto) Lymph # (Auto) [place] # (Auto) Eos # (Auto) Baso # (Auto) Abs Immat Gran (auto) Absolute Neuts (auto) Absolute Nucleated RBC Nucleated RBC % (auto) Sodium Potassium Chloride Carbon Dioxide Anion Gap BUN Creatinine Estim Creat Clear Calc Estimated GFR POC Glucose Random Glucose Estimat Average Glucose Hemoglobin A1c % Calcium Nasal Screen MRSA (PCR) NEGATIVE Nasal S. aureus Screen NEGATIVE Nasal MRSA/S.aureus Interp SEE NOTE COVID-19 ([facility]) Negative COVID-19 Clin Com See Note Blood Type B Positive Antibody Screen NEGATIVE 08/29/20 08/30/20 08/30/20 06:40 05:38 09:07 WBC RBC Hgb 12.9 L Hct 39.5 L MCV MCH MCHC RDW Plt Count MPV Immature Gran % (Auto) Neut % (Auto) Lymph % (Auto) [place] % (Auto) Eos % (Auto) Baso % (Auto) Lymph # (Auto) [place] # (Auto) Eos # (Auto) Baso # (Auto) Abs Immat Gran (auto) Absolute Neuts (auto) Absolute Nucleated RBC Nucleated RBC % (auto) Sodium Potassium Chloride Carbon Dioxide Anion Gap BUN Creatinine 1.32 Estim Creat Clear Calc 71.5 Estimated GFR 55 POC Glucose 170 H Random Glucose Estimat Average Glucose Hemoglobin A1c % Calcium Nasal Screen MRSA (PCR) Nasal S. aureus Screen Nasal MRSA/S.aureus Interp COVID-19 ([facility]) COVID-19 Clin Com Blood Type Antibody Screen 08/30/20 08/30/20 08/30/20 11:54 16:15 20:59 WBC RBC Hgb Hct MCV MCH MCHC RDW Plt Count MPV Immature Gran % (Auto) Neut % (Auto) Lymph % (Auto) [place] % (Auto) Eos % (Auto) Baso % (Auto) Lymph # (Auto) [place] # (Auto) Eos # (Auto) Baso # (Auto) Abs Immat Gran (auto) Absolute Neuts (auto) Absolute Nucleated RBC Nucleated RBC % (auto) Sodium Potassium Chloride Carbon Dioxide Anion Gap BUN Creatinine Estim Creat Clear Calc Estimated GFR POC Glucose 249 H 184 H 187 H Random Glucose Estimat Average Glucose Hemoglobin A1c % Calcium Nasal Screen MRSA (PCR) Nasal S. aureus Screen Nasal MRSA/S.aureus Interp COVID-19 ([facility]) COVID-19 Clin Com Blood Type Antibody Screen 08/31/20 08:16 WBC RBC Hgb Hct MCV MCH MCHC RDW Plt Count MPV Immature Gran % (Auto) Neut % (Auto) Lymph % (Auto) [place] % (Auto) Eos % (Auto) Baso % (Auto) Lymph # (Auto) [place] # (Auto) Eos # (Auto) Baso # (Auto) Abs Immat Gran (auto) Absolute Neuts (auto) Absolute Nucleated RBC Nucleated RBC % (auto) Sodium Potassium Chloride Carbon Dioxide Anion Gap BUN Creatinine Estim Creat Clear Calc Estimated GFR POC Glucose 190 H Random Glucose Estimat Average Glucose Hemoglobin A1c % Calcium Nasal Screen MRSA (PCR) Nasal S. aureus Screen Nasal MRSA/S.aureus Interp COVID-19 ([facility]) COVID-19 Clin Com Blood Type Antibody Screen Discharge Plan Discharge Patient Disposition: Home Health Service Referrals: Lj Espinosa MD [Physician] - Opal lAmanzar PA-C [Physician Die Maker] - (09/14/20 at 1:45pm) Discharge Medications: New acetaminophen 325 mg Tablet 650 mg PO Q6H 30 Days Qty: 240 RF: 0 aspirin 325 mg Tablet 325 mg PO BID 14 Days Qty: 28 RF: 0 oxycodone 10 mg tablet 10 mg PO Q6H 7 Days Qty: 28 RF: 0 Continued losartan 25 mg tablet 25 mg PO DAILY RF: 0 metformin 500 mg Tablet 1,000 mg PO QAM RF: 0 metformin 500 mg Tablet 500 mg PO QPM RF: 0 diltiazem HCl 240 mg capsule,extended release 24hr 1 cap PO QAM RF: 0 albuterol 90 mcg/actuation Aerosol 2 mcg INHALATION Q4-6H PRN (Reason: Shortness Of Breath) RF: 0 omeprazole 20 mg capsule,delayed release(DR/EC) 1 cap PO DAILY 30 Days Qty: 0 RF: 0 Discontinued aspirin [Aspirin Low-Strength] 81 mg Tablet,Delayed Release (Dr/Ec) 81 mg PO DAILY RF: 0 Discharge Orders: Discharge Order (Routine); Ordered 08/31/20 Ordered By: Opal Almanzar Diet: regular diet Activity on Discharge: Use cane or walker Stand Alone Forms: Patient Portal Discharge page Activity Restrictions/Additional Instructions: Physical Therapy for ROM 0-120, quad strength, gait training. Use walker for ambulation Limit stair climbing, No shower, No tub bath, No driving Continue anticoagulant Keep Aquacel dressing clean, dry and intact. Follow up with orthopedics in 2 weeks Care Plan Goals: restore fxn to the right knee Health Concerns: none Plan of Treatment: Physical Therapy for ROM 0-120, quad strength, gait training. Use walker for ambulation Limit stair climbing, No shower, No tub bath, No driving Continue anticoagulant Keep Aquacel dressing clean, dry and intact. Follow up with orthopedics in 2 weeks
--- NOTE | 2020-08-31 08:54 | MHC.CM.PN ---
NURSE SEWING TRIMMER NOTE ELECTRONIC MEDICAL RECORD REVIEWED ALONG WITH CASE DISCUSSED WITH STAFF NURSE ANTICIPATE DISCHARGED HOME TODAY WITH NEW REFERRAL TO THE [facility] FOR HOME PHYSICAL TTHEARPOY. INFORMED THEM OF THE [place] DISCHARGE TODAY AND START DAY WILL BE TOMORROW , PATIENT IS ON ASPIRIN ONLY. [facility] FOR HOME P.T. PCP DR WILFREDO IBARRA PATIENT TO CALL FOR POST HOSPITAL DISCHARGE FOLLOW UP ORTHOPEDIC SURGEON FOLLOW UP PER DISCHARGE INSTRUCTIONS TRANSPORTATION FAMILY
[2020-08-31 10:29] VITALS: BP 146/77; PULSE 111
--- NOTE | 2020-08-31 11:07 | P.PNIM_ITS ---
Subjective Subjective Date of Service: 08/31/20 Interval History: Seen in follow-up for a consultation s/p knee replacement. pain is well controlled and he did well with physical therapy and looks forward to going home Constitutional Constitutional: Reports no additional constitutional complaints Cardiovascular Cardiovascular: Denies chest pain and Reports dyspnea Respiratory Respiratory: Reports dyspnea Musculoskeletal Musculoskeletal: Reports arthralgias (right knee) Endocrine Endocrine: Reports cold intolerance Physical Exam Vital Signs: Vital Signs: Last Vital Signs Temp 97.8 F 08/31/20 08:00 Pulse 111 H 08/31/20 10:29 Resp 18 08/31/20 08:00 BP 146/77 H 08/31/20 10:29 Pulse Ox 93 08/31/20 08:00 Body Mass Index 36.1 Const: General: cooperative and comfortable Orientation/consciousness: patient oriented x3 HENMT: Head: Yes normal to inspection Neck: Neck: Yes normal visual inspection Chest: Chest palpation & inspection: normal inspection of the chest Resp: Effort & Inspection: normal respiratory effort Cardio: Jugular venous distension: no JVD Rhythm: regular rhythm and abnormal rhythm Heart sounds: S1 normal heart sound present and S2 normal heart sound present GI: Inspection: Yes normal to inspection Percussion: Yes normal to percus chilo Auscultation: normal bowel sounds Skin: Other: wound d/c/i General skin exam: no rashes or lesions noted Neuro: Other: No focal deficit General: patient oriented x3 Objective Data Current Medications Generic Name Dose Route Start Last Admin Trade Name Freq PRN Reason Stop Dose Admin Acetaminophen 650 mg 08/29/20 13:00 08/31/20 06:49 Acetaminophen 325 Mg Tablet PO 650 mg Q6H SHAHLA Administration Albuterol Sulfate 2 puff 08/29/20 15:45 Albuterol Sulfate 90 Mcg 8 Gm Inhaler INHALE Q4H PRN Shortness Of Breath Aspirin 325 mg 08/30/20 22:00 08/31/20 08:29 Aspirin 325 Mg Tablet PO 325 mg BID SHAHLA Administration Diltiazem HCl 240 mg 08/29/20 15:30 08/31/20 08:28 Diltiazem Hcl Cd 240 Mg Cap.Er.Deg PO 240 mg DAILY SHAHLA Administration Protocol Insulin Human Lispro 0 unit 08/30/20 11:30 08/31/20 08:28 Insulin Lispro 100 Unit/Ml 3 Ml Vial SUBCUT 2 unit QIDACHS SHAHLA Administration Protocol Ketorolac Tromethamine 15 mg 08/29/20 13:00 08/31/20 06:49 Ketorolac Tromethamine 15 Mg/Ml Vial IVPUSH 15 mg Q6H SHAHLA Administration Losartan Potassium 25 mg 08/30/20 09:00 08/31/20 08:29 Losartan Potassium 25 Mg Tablet PO 25 mg DAILY SHAHLA Administration Protocol Metformin HCl 500 mg 08/29/20 21:00 08/30/20 21:11 Metformin Hcl 500 Mg Tablet PO 500 mg BEDTIME SHAHLA Administration Metformin HCl 1,000 mg 08/30/20 09:00 08/31/20 08:29 Metformin Hcl 1,000 Mg Tablet PO 1,000 mg DAILY SHAHLA Administration Morphine Sulfate 2 mg 08/29/20 12:32 Morphine Sulfate 2 Mg/Ml Cartridge IVPUSH Q2H PRN Pain, Severe (Pain Scale 7-10) Naloxone HCl 0.2 mg 08/29/20 12:32 Naloxone Hcl 0.4 Mg/Ml Vial IVPUSH Q2M PRN Excessive sedation or RR < 8 Omeprazole 20 mg 08/30/20 09:00 08/31/20 08:29 Omeprazole 20 Mg Capsule.Dr PO 20 mg DAILY SHAHLA Administration Ondansetron HCl 4 mg 08/29/20 12:32 Ondansetron Hcl 4 Mg/2 Ml Vial IVPUSH Q8H PRN Nausea and Vomiting Oxycodone HCl 10 mg 08/29/20 13:00 08/31/20 06:48 Oxycodone Hcl Immed Release 5 Mg Tablet PO 10 mg Q6H SHAHLA Administration Sodium Chloride 3 ml 08/29/20 16:00 08/31/20 08:30 0.9 % Sodium Chloride Flush 3 Ml Syringe IVFLUSH 3 ml QSHIFT SHAHLA Administration Labs CBC & Chem 7: 08/30/20 05:38 08/30/20 09:07 Assessment and Plan (1) Diabetes: Problem details: type 2-FBS usually 128-144 NIDDM Status: Acute (2) HTN (hypertension): Status: Acute (3) Degenerative disc disease: Status: Acute (4) GERD (gastroesophageal reflux disease): Problem details: omeprazole controls symptoms Status: Acute (5) Sleep apnea: Problem details: per PSG 04/2020-using CPAP Status: Acute (6) Primary osteoarthritis of right knee: Status: Acute Assessment and Plan: 65 year male with DM, HTN, HLD, GERD, degenerative arthritis of right knee and underwent elective Right TKR today and doing well post op 1. s/p Right TKR, POD1--mangement per ortho 2.DM--on Metformin 1500 mg /day -continue Metformin -Add SSI -Diabetic diet. 3. HTN--BP is high this morning, continue Losartan and Diltiazem, HR tend to be on high send but most of time within normal, I would suggest continue current dose of dilt and if persistently high, PCP should increase cardizem to 360 4. GERD--Omeprazole 5. HLD--Rosuvostatin 6.SHANIQUE--CPAP to use own CPAP at night DVT Prophylaxis ASA otherwise good to go
--- NOTE | 2020-09-02 09:03 | P.OP_ITS ---
Operative Note Operative Note Date of Service: 08/29/20 Narrative: SURGEON: Dr Lj Mata) Francisca MARTINEZ FAST FOOD ASSISTANT RESTAURANT MANAGER: Opal Almanzar PAC PREOP DIAGNOSIS: {osteoarthritis right knee} POSTOP DIAGNOSIS: {same } OPERATIVE PROCEDURE: Total knee arthroplasty {right-NexGen CR flex size G femur, 8 x 10 mm monoblock tibial component, 35 mm monoblock patellar component } CLINICAL NOTE: This individual comes in today in regards to their knee. Has osteoarthritis. Has failed non operative management. Therefore after explaining the risks benefits and alternatives and answering all the questions it was mutually agreed upon care following procedure OPERATIVE DETAILS With of regional and spinal anesthetic the patient was placed supine on the operating table. Pneumatic tourniquet cuff was placed around the upper thigh and inflated to 300 mm of mercury at the beginning of the case. The leg was then prepped and draped in standard fashion with the leg free. Surgical time-out was then performed. The patient was identified. Procedure confirmed. Site confirmed. Medical and allergy history reviewed. Preoperative antibiotics were given. Standard DVT prophylaxis in place. Tranexamic acid was given as well. All other items were discussed and agreed upon. Standard small midline incision was made. Was taken down through the subcutaneous tissues. Hemostasis achieved along the way using electrocautery. This brought us to the extensor mechanism where a medial parapatellar arthrotomy in a subvastus technique was performed. The patella was retracted into the lateral gutter. The soft tissues were elevated from the anterior aspect of the femur. At the level of the tibia the soft tissue elevated medially excising a portion of the meniscus as well as protecting the medial-sided soft tissues. Similarly on the lateral side a portion of the fat pad, portion of the meniscus were excised. The lateral-sided soft tissues were elevated protecting them as well. The ACL was resected. We turned our attention then to the femur. Standard ex to medullary hole was established. The cutting guide was set for 5 degrees of valgus with a standard cut. It was held in place with pins and the surface resected flat. The sizing guide was then used. The femur was sized to a {G }. The 3 degree external rotation pins were set. The all in 1 cutting guide for this size was placed the pins and centered over the distal cut. Following this the anterior and anterior chamfer cuts, the posterior and pos terior chamfer cuts, the patellar recess cuts, as well as the lug holes were made. The guide was removed. The bony fragments removed and we turned our attention to the tibia. The remainder of the medial and lateral menisci were excised. The extramedullary guide was then used in standard fashion referencing the tibial tubercle, the subcutaneous border of the tibia, and the middle of the ankle. The slope was then set. The cut was referenced from the more worn size for a minimal cut. The surface was then resected. The bony segment removed. The tibia was then trialed to a size {8 }. It was aligned as the extra medullary guide had been. A 10 mm trial insert was put into place. The femoral trial was also applied with good fit. The alignment of the leg was excellent. The knee was then placed through a range of motion which demonstrated full extension full flexion stable medially and laterally at 0, 30, 60, and 90 degrees of flexion. Patella tracked centrally when the medial-sided soft tissues were fixed. Turning our attention to the patella. The soft tissues were elevated circumferentially. The surface was resected flat. It sized to a{35 }. The trial component was put into place with excellent fit. It tracked nicely through flexion extension. Therefore the trial sizes were appropriate and therefore the permanent components were selected and brought up onto the table. The trial components were then all removed after the peg holes for the tibia were made. The tourniquet was then let down with total tourniquet time of {68 }. The area of the lateral geniculate artery was identified and cauterized. Any excessive bleeding points were also cauterized. The knee was then thoroughly irrigated. The permanent components were brought up onto the table. The tibia followed by the femur followed by the patella were all Press-Fit into place. The knee was placed through range of motion. It had full flexion and extension. He was stable medial laterally in all positions. Patella tracked a little laterally. Therefore a small retinacular release was performed. Following this the patella tracked centrally through the full range of motion. And therefore we proceeded to closure. Wound was thoroughly irrigated. The extensor mechanism was closed with #2 Quill suture. The skin was approximated with 2-0 Polysorb suture. The skin was closed with rut. Sterile dressing was then applied. The patient was then transferred supine to the room bed and taken to the recovery room in good condition. Intraoperatively a 2nd unit a transit make acid was given at the time of closure. There was approximately {50 } a blood loss. No intraop transfusions or complications. .
== END 2020-08-31 11:45 | disposition home health service (06) | DRG 302 ==
LOC: HO.SSSA 06:12 → HO.S3 10:41
PROVIDERS: Physician Assistant; Student in an Organized Health Care Education/Training Program; Admitting Provider Orthopaedic Surgery; PCP Internal Medicine; Visit Provider Orthopaedic Surgery
PROC: 0SRC0JA Replacement of Right Knee Joint with Synthetic Substitute, Uncemented, Open Approach (ICD-10-PCS; CPT 27447; principal; 2020-08-29 07:30)
DX: M17.11 Unilateral primary osteoarthritis, right knee (principal); E11.9 Type 2 diabetes mellitus without complications; E78.5 Hyperlipidemia, unspecified; G47.33 Obstructive sleep apnea (adult) (pediatric); K21.9 Gastro-esophageal reflux disease without esophagitis; Z20.822 Contact with and (suspected) exposure to COVID-19; Z96.642 Presence of left artificial hip joint; Z79.84 Long term (current) use of oral hypoglycemic drugs; Z79.899 Other long term (current) drug therapy
CPT/HCPCS: 36415; 73560; 80048; 82565; 82947; 83036; 85014; 85018; 85025; 86901; 87635; 87640; 87641; 88305; 88311; 93005; 97110; 97116; 97162; 97165; C1713; C1776; J0690; J1885; J2250

== ENCOUNTER → 2020-09-14 13:37 | Outpatient (BNVA) | payer OTHER, SELFPAY | PROVIDERS: PCP Internal Medicine; Visit Provider Physician Assistant ==

== ENCOUNTER 2020-09-29 11:01 | Outpatient (REF) | payer OTHER, SELFPAY ==
[2020-09-29 13:54] LABS: MANUAL DIFF FLAG NO
[2020-09-29 14:03] LABS: Basophils Absolute Auto 0.1 X10*3/uL (0.0-0.2); Basophils Percent Auto 0.7 % (0-2); Eosinophils Absolute Auto 0.3 X10*3/uL (0.0-0.4); Eosinophils Percent Auto 4.5 % (0-4); Hematocrit 41.3 % (42-52); Hemoglobin 13.4 g/dl (14.0-18.0); Imm Gran Abs Auto 0.02 X10*3/uL (0.00-0.03); Imm Gran Pct Auto 0.3 % (0.0-0.4); Lymphocytes Absolute Auto 1.8 X10*3/uL (1.2-4.9); Lymphocytes Percent Auto 23.6 % (20-40); Mean Corpuscular HGB Conc 32.4 g/dl (31.0-36.0); Mean Corpuscular Hemoglobin 28.3 pg (27.0-33.0); Mean Corpuscular Volume 87.1 fL (80-98); Mean Platelet Volume 10.4 fL (9.4-12.4); Monocytes Absolute Auto 0.6 X10*3/uL (0.1-1.2); Monocytes Percent Auto 7.7 % (2-11); Neutrophils Absolute Auto 4.8 X10*3/uL (2.0-8.3); Neutrophils Percent Auto 63.2 % (45-73); Platelet Count 340 X10*3/uL (160-400); Red Blood Count 4.74 X10*6/uL (4.60-5.80); Red Cell Distribution Width 13.2 % (11.0-16.0); White Blood Count 7.6 X10*3/uL (4.8-10.8)
[2020-09-29 14:06] LABS: Estimated Average Glucose 160 mg/dL; Hemoglobin A1c % 7.2 %
[2020-09-29 14:14] LABS: D Dimer 1558 NG/ML
[2020-09-29 14:23] LABS: Anion Gap 15 (12-20); Blood Urea Nitrogen 18 mg/dL (9-16); Calcium 9.5 mg/dL (8.4-10.2); Carbon Dioxide 23 mmol/L (22-29); Chloride 104 mmol/L (96-108); Estimated Glomerular Filt Rate > 60; Glucose Random 140 mg/dL (60-115); Potassium 4.7 mmol/L (3.3-5.1); Sodium 137 mmol/L (135-145)
[2020-09-29 14:47] LABS: Free T4 (Free Thyroxine) 0.91 ng/dL (0.71-1.85); Thyroid Stimulating Hormone 1.54 uIU/mL (0.32-4.0)
== END 2020-09-29 11:02 | disposition home or self-care (01) ==
LOC: HO.10HDL 11:01
PROVIDERS: Visit Provider Internal Medicine
DX: E11.9 Type 2 diabetes mellitus without complications (principal); I10 Essential (primary) hypertension; R00.0 Tachycardia, unspecified; J45.909 Unspecified asthma, uncomplicated
CPT/HCPCS: 36415; 80048; 83036; 84439; 84443; 85025; 85379

== ENCOUNTER 2020-09-30 20:27 | Emergency (ER) | payer OTHER, SELFPAY ==
--- NOTE | ~2020-09-30 | CT_ITS ---
EXAMINATION: CT ANGIOGRAM OF THE CHEST WITH AND WITHOUT CONTRAST (CT PULMONARY ANGIOGRAM FOR PE) CLINICAL INFORMATION: Reason for Exam Tachycardia, elevated D-dimer COMPARISON: Chest x-ray 09/30/2020 TECHNIQUE: Prior to contrast administration, noncontrast localization images were obtained. Subsequently, multidetector volumetric imaging was performed from the thoracic inlet to below the diaphragms following the administration of 65 mL Omnipaque 350 intravenous contrast. No contrast reaction reported Sagittal, coronal, and MIP oblique sagittal reformatted images were obtained on the CT workstation, uploaded to PACS, and reviewed. This CT examination was performed using dose optimization techniques as appropriate, variously including the following: *Automated exposure control *Adjustment of mA and/or kV according to patient size (this includes techniques or standardized protocols for targeted exams where dose is matched to indication/reason for exam; i.e. extremities or head) *Use of iterative reconstruction technique Total exam dose-length product 318 mGy-cm FINDINGS: QUALITY OF STUDY/CONTRAST BOLUS: Satisfactory. PULMONARY ARTERIES: No central or segmental pulmonary emboli. Limited evaluation of the distal vasculature in some regions due to motion artifact. THORACIC AORTA: No aneurysm or dissection. LUNG: There is a mosaic attenuation pattern of the lung parenchyma bilaterally suggesting heterogeneous air trapping. No dense consolidation is seen. PLEURA: No pleural effusion or pneumothorax. MEDIASTINUM: Normal heart size. No pericardial effusion. No hilar or mediastinal lymphadenopathy. Coronary artery calcifications are present. CHEST WALL/AXILLA: No axillary or internal mammary lymphadenopathy. OSSEOUS STRUCTURES: There are changes of diffuse idiopathic skeletal hyperostosis in the spine. UPPER ABDOMEN: Unremarkable. No reflux of contrast into the hepatic veins to suggest elevated right heart pressures. CT/CT angio chest PE protocol IMPRESSION: 1. No central or segmental pulmonary embolus identified. 2. Mosaic attenuation of the lung parenchyma suggesting heterogeneous air trapping. 3. Coronary artery calcifications. Correlation with cardiac risk factors is recommended. VTE: negative
--- NOTE | ~2020-09-30 | XR_ITS ---
EXAMINATION: XR CHEST CLINICAL INFORMATION: Cough COMPARISON: 08/16/2016 TECHNIQUE: Frontal view of the chest was obtained. FINDINGS: Normal symmetric lung volumes. No parenchymal consolidation. No pleural effusion. No pneumothorax. Cardiomediastinal silhouette and pulmonary vascularity are within normal limits. No acute osseous abnormalities. XR/XR chest 1V IMPRESSION: No acute findings
[2020-09-30 20:32] VITALS: BP 165/82; PULSE 128; RESP 20; TEMP 36.9; O2SAT 98; BMI 34.4
--- NOTE | 2020-09-30 21:01 | ECG_ITS ---
Test Reason : TACCHYCARDIA Blood Pressure : / mmHG Vent. Rate : 108 BPM Atrial Rate : 108 BPM P-R Int : 138 ms QRS Dur : 086 ms QT Int : 318 ms P-R-T Axes : 038 -19 029 degrees QTc Int : 426 ms Sinus tachycardia with occasional Premature ventricular complexes Voltage criteria for left ventricular hypertrophy Abnormal ECG When compared with ECG of 11-AUG-2020 14:45, Premature ventricular complexes are now Present Referred By: Guera Cunha Electronically Signed By:Cooper Kuo
--- NOTE | 2020-09-30 21:03 | ED_ITS ---
HPI - General Adult General Chief complaint: General Medical Stated complaint: abnormal labs Time Seen by Provider: 09/30/20 21:01 Source: patient Mode of arrival: ambulatory History of Present Illness HPI narrative: This is a 65-year-old male who is status post right TKA and followed up with his primary care provider who noted that patient was tachycardic sent a D-dimer and then called the patient earlier this morning with the results of 1500. Patient denies feeling short of breath, fevers, chills, GI symptoms. Related Data Home Medications Medication Instructions Recorded Confirmed losartan 25 mg PO DAILY 04/18/20 08/18/20 albuterol 2 mcg INHALATION Q4-6H PRN 04/19/20 08/18/20 diltiazem HCl 1 cap PO QAM 04/19/20 08/18/20 metformin 1,000 mg PO QAM 04/19/20 08/18/20 metformin 500 mg PO QPM 04/19/20 08/18/20 rosuvastatin 10 mg tablet 10 mg PO BEDTIME 06/28/20 08/18/20 Previous Rx's Medication Instructions Recorded acetaminophen 650 mg PO Q6H 30 Days #240 tab 08/30/20 aspirin 325 mg PO BID 14 Days #28 tab 08/30/20 omeprazole 1 cap PO DAILY 30 Days #0 cap 08/30/20 oxycodone 5 mg tablet 5 mg PO Q6H PRN 7 Days #28 tab 09/30/20 Allergies Allergy/AdvReac Type Severity Reaction Status Date / Time No Known Allergies Allergy Verified 09/14/20 13:38 [No Known Allergies*] Review of Systems Review of Systems: Pertinent positives and negatives as stated in HPI 10 point review of systems is otherwise negative. PMFSH Past Medical History Source: nursing notes reviewed Medical History Arthritis Asthma Back pain COVID-19 vaccine administered COVID-19 virus antibody negative Degenerative disc disease Diabetes Elevated cholesterol GERD (gastroesophageal reflux disease) History of pericarditis HTN (hypertension) Lab test negative for COVID-19 virus Primary osteoarthritis of right knee Scoliosis Sleep apnea Surgical History H/O total hip arthroplasty History of total right knee replacement Hx of colonoscopy Social History Social History Alcohol intake: current Alcohol intake frequency: a few times a month Alcohol type: beer Smoking Status: Never smoker Advance Directives: No Advance Directives Information Provided: No service: No Current occupational status: employed 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 GENERAL: Well developed, well nourished, in no acute distress. HEAD: Normocephalic/atraumatic NOSE: Nares patent bilateral OROPHARYNX: no oral lesions noted, posterior pharynx clear NECK: Supple, no adenopathy LUNGS: Normal breath sounds. No adventitious sounds or accessory muscle use. SpO2<98> CARDIOVASCULAR: Regular rate and rhythm without noted murmurs, no JVD or lower extremity edema. ABDOMEN: Obese, Soft, non-tender, non-distended with bowel sounds. RIGHT KNEE: Well-healing incision to anterior aspect with Steri-Strips in place minimal erythema with typical postop changes. SKIN: Inspection of the skin reveals no rashes NEUROLOGIC: Alert and oriented x 4. Course Course Course Narrative: This is a 65-year-old male with history and clinical presentation most consistent with PE but patient also has history of pericarditis although he does not report any clinical symptoms that would go along with this, and remains hemodynamically stable with SpO2 -98. On review of all investigations there are no acute findings and chronically stable normocytic anemia and CT scan is negative for PE. Of note, the D-dimer has improved from initial results on 09/29. All results and findings were discussed with the patient at bedside. He was discharged in stable condition with recommendations to follow-up with Dr. Baldwin. Medical Decision Making Lab Data Result diagrams: 09/30/20 21:29 09/30/20 21:29 Labs: Lab Results 09/30/20 09/30/20 09/30/20 Range/Units 21:29 21:29 21:29 WBC 9.5 (4.8-10.8) X10*3/uL RBC 4.49 L (4.60-5.80) X10*6/uL Hgb 12.9 L (14.0-18.0) g/dl Hct 39.6 L (42-52) % MCV 88.2 (80-98) fL MCH 28.7 (27.0-33.0) pg MCHC 32.6 (31.0-36.0) g/dl RDW 13.3 (11.0-16.0) % Plt Count 314 (160-400) X10*3/uL MPV 10.0 (9.4-12.4) fL Immature Gran % (Auto) 0.3 (0.0-0.4) % Neut % (Auto) 67.2 (45-73) % Lymph % (Auto) 21.2 (20-40) % [place] % (Auto) 6.7 (2-11) % Eos % (Auto) 4.2 H (0-4) % Baso % (Auto) 0.4 (0-2) % Lymph # (Auto) 2.0 (1.2-4.9) X10*3/uL [place] # (Auto) 0.6 (0.1-1.2) X10*3/uL Eos # (Auto) 0.4 (0.0-0.4) X10*3/uL Baso # (Auto) 0.0 (0.0-0.2) X10*3/uL Abs Immat Gran (auto) 0.03 (0.00-0.03) X10*3/uL Absolute Neuts (auto) 6.4 (2.0-8.3) X10*3/uL Absolute Nucleated RBC 0.000 (0.0-0.012) X10*3/uL Nucleated RBC % (auto) 0.0 (0.0-0.2) /100WBC PT 11.7 (10.8-13.0) SEC INR 1.0 (0.9-1.1) APTT 31.1 (24.1-38.0) SEC D-Dimer 1047 NG/ML Sodium 139 (135-145) mmol/L Potassium 4.2 (3.3-5.1) mmol/L Chloride 103 (96-108) mmol/L Carbon Dioxide 25 (22-29) mmol/L Anion Gap 15 (12-20) BUN 21 H (9-16) mg/dL Creatinine 1.29 (0.5-1.4) mg/dL Estim Creat Clear Calc 71.4 Estimated GFR 56 POC Glucose (60-115) mg/dL Random Glucose 206 H D (60-115) mg/dL Calcium 9.3 (8.4-10.2) mg/dL Total Bilirubin 0.2 (0.0-1.0) mg/dL AST 17 (5-37) U/L ALT 23 (0-40) U/L Alkaline Phosphatase 102 D (39-117) U/L Total Protein 7.6 (6.5-8.0) g/dL Albumin 4.3 (3.5-5.0) g/dL Urine Color Urine Appearance Urine pH (5.0-8.0) Ur Specific [place] (1.005-1.025) Urine Protein (NEG-TRACE) MG/DL Urine Glucose (UA) (NEG) MG/DL Urine Ketones (NEG) MG/DL Urine Blood (NEG) Urine Nitrite (NEG) Ur Leukocyte Esterase (NEG) 09/30/20 09/30/20 Range/Units 23:32 23:57 WBC (4.8-10.8) X10*3/uL RBC (4.60-5.80) X10*6/uL Hgb (14.0-18.0) g/dl Hct (42-52) % MCV (80-98) fL MCH (27.0-33.0) pg MCHC (31.0-36.0) g/dl RDW (11.0-16.0) % Plt Count (160-400) X10*3/uL MPV (9.4-12.4) fL Immature Gran % (Auto) (0.0-0.4) % Neut % (Auto) (45-73) % Lymph % (Auto) (20-40) % [place] % (Auto) (2-11) % Eos % (Auto) (0-4) % Baso % (Auto) (0-2) % Lymph # (Auto) (1.2-4.9) X10*3/uL [place] # (Auto) (0.1-1.2) X10*3/uL Eos # (Auto) (0.0-0.4) X10*3/uL Baso # (Auto) (0.0-0.2) X10*3/uL Abs Immat Gran (auto) (0.00-0.03) X10*3/uL Absolute Neuts (auto) (2.0-8.3) X10*3/uL Absolute Nucleated RBC (0.0-0.012) X10*3/uL Nucleated RBC % (auto) (0.0-0.2) /100WBC PT (10.8-13.0) SEC INR (0.9-1.1) APTT (24.1-38.0) SEC D-Dimer NG/ML Sodium (135-145) mmol/L Potassium (3.3-5.1) mmol/L Chloride (96-108) mmol/L Carbon Dioxide (22-29) mmol/L Anion Gap (12-20) BUN (9-16) mg/dL Creatinine (0.5-1.4) mg/dL Estim Creat Clear Calc Estimated GFR POC Glucose 185 H (60-115) mg/dL Random Glucose (60-115) mg/dL Calcium (8.4-10.2) mg/dL Total Bilirubin (0.0-1.0) mg/dL AST (5-37) U/L ALT (0-40) U/L Alkaline Phosphatase (39-117) U/L Total Protein (6.5-8.0) g/dL Albumin (3.5-5.0) g/dL Urine Color YELLOW Urine Appearance CLEAR Urine pH 5.0 (5.0-8.0) Ur Specific [place] >= 1.030 H (1.005-1.025) Urine Protein NEG (NEG-TRACE) MG/DL Urine Glucose (UA) NEG (NEG) MG/DL Urine Ketones 5 (NEG) MG/DL Urine Blood NEG (NEG) Urine Nitrite NEG (NEG) Ur Leukocyte Esterase NEG (NEG) ECG Data Attestation: I personally reviewed and interpreted this ECG as follows: Prior ECG tracings: available for review (08/11/2020 no acute changes on comparison other than tachycardia) Interpretation: Sinus tachycardia with occasional PVC, HR-108, no evidence of acute ischemia, CA/QRS/QTC are within normal limits. Discharge Plan Discharge Clinical Impression: Tachycardia, Elevated d-dimer Patient Disposition: Home, Self-Care Instructions: Tachycardia (ED) Additional Instructions: 1. Please resume all home medications as prescribed. 2. Please increase fluid hydration especially with water as you have received IV contrast as well as evidence of very mild dehydration. 3. Please follow-up with your primary care provider in the next 2-3 days for re- evaluation. Do not hesitate to return to the emergency department should you experience any concerning symptoms. Prescriptions: No Action oxycodone 5 mg tablet 5 mg PO Q6H PRN (Reason: pain) 7 Days Qty: 28 RF: 0 losartan 25 mg tablet 25 mg PO DAILY RF: 0 metformin 500 mg Tablet 1,000 mg PO QAM RF: 0 metformin 500 mg Tablet 500 mg PO QPM RF: 0 diltiazem HCl 240 mg capsule,extended release 24hr 1 cap PO QAM RF: 0 albuterol 90 mcg/actuation Aerosol 2 mcg INHALATION Q4-6H PRN (Reason: Shortness Of Breath) RF: 0 acetaminophen 325 mg Tablet 650 mg PO Q6H 30 Days Qty: 240 RF: 0 aspirin 325 mg Tablet 325 mg PO BID 14 Days Qty: 28 RF: 0 omeprazole 20 mg capsule,delayed release(DR/EC) 1 cap PO DAILY 30 Days Qty: 0 RF: 0 Referrals: Franklin Baldwin MD [Primary Care Provider] - 2 days (Re-evaluation and outpatient management for tachycardia. D-dimer improving and CT scan negative. Some soft evidence of mild dehydration.)
[2020-09-30 21:35] LABS: MANUAL DIFF FLAG NO
[2020-09-30 21:37] LABS: Basophils Percent Auto 0.4 % (0-2); Eosinophils Absolute Auto 0.4 X10*3/uL (0.0-0.4); Eosinophils Percent Auto 4.2 % (0-4); Hematocrit 39.6 % (42-52); Hemoglobin 12.9 g/dl (14.0-18.0); Imm Gran Abs Auto 0.03 X10*3/uL (0.00-0.03); Imm Gran Pct Auto 0.3 % (0.0-0.4); Lymphocytes Percent Auto 21.2 % (20-40); Mean Corpuscular HGB Conc 32.6 g/dl (31.0-36.0); Mean Corpuscular Hemoglobin 28.7 pg (27.0-33.0); Mean Corpuscular Volume 88.2 fL (80-98); Monocytes Absolute Auto 0.6 X10*3/uL (0.1-1.2); Monocytes Percent Auto 6.7 % (2-11); Neutrophils Absolute Auto 6.4 X10*3/uL (2.0-8.3); Neutrophils Percent Auto 67.2 % (45-73); Platelet Count 314 X10*3/uL (160-400); Red Blood Count 4.49 X10*6/uL (4.60-5.80); Red Cell Distribution Width 13.3 % (11.0-16.0); White Blood Count 9.5 X10*3/uL (4.8-10.8)
[2020-09-30 21:43] LABS: Prothrombin Time 11.7 SEC (10.8-13.0)
[2020-09-30 21:46] LABS: D Dimer 1047 NG/ML; Partial Thromboplastin Time 31.1 SEC (24.1-38.0)
[2020-09-30 21:59] LABS: Alanine Aminotransferase 23 U/L (0-40); Albumin Level 4.3 g/dL (3.5-5.0); Alkaline Phosphatase 102 U/L (39-117); Anion Gap 15 (12-20); Aspartate Amino Transferase 17 U/L (5-37); Bilirubin Total 0.2 mg/dL (0.0-1.0); Blood Urea Nitrogen 21 mg/dL (9-16); Calcium 9.3 mg/dL (8.4-10.2); Carbon Dioxide 25 mmol/L (22-29); Chloride 103 mmol/L (96-108); Creatinine Clr Calc Pharmacy 71.4; Estimated Glomerular Filt Rate 56; Glucose Random 206 mg/dL (60-115); Potassium 4.2 mmol/L (3.3-5.1); Sodium 139 mmol/L (135-145); Total Protein 7.6 g/dL (6.5-8.0)
[2020-09-30 23:27] VITALS: BP 158/84; PULSE 98; RESP 20; TEMP 36.8; O2SAT 98
[2020-09-30 23:37] LABS: Glucose, Whole Blood 185 mg/dL (60-115)
[2020-10-01] MEDS: iohexoL 350 MG/ML 75 ML INFUS..BTL 60 ML IV (00:05)
[2020-10-01 00:15] LABS: Glucose Urine UA NEG (NEG); Leukocyte Esterase Urine NEG (NEG); Nitrite Urine NEG (NEG); Specific Gravity - Urine >= 1.030 (1.005-1.025); Urine Blood NEG (NEG); Urine Ketones 5 MG/DL (NEG); Urine Protein NEG (NEG-TRACE)
[2020-10-01 00:22] LABS: Appearance Urine CLEAR; Color Urine YELLOW
== END 2020-10-01 01:15 | disposition home or self-care (01) ==
PROVIDERS: Emergency Provider Student in an Organized Health Care Education/Training Program; PCP Internal Medicine
DX: R00.0 Tachycardia, unspecified (principal); R79.1 Abnormal coagulation profile; Z96.651 Presence of right artificial knee joint; J45.909 Unspecified asthma, uncomplicated; E11.9 Type 2 diabetes mellitus without complications; I10 Essential (primary) hypertension; Z79.84 Long term (current) use of oral hypoglycemic drugs; Z79.899 Other long term (current) drug therapy; Z79.82 Long term (current) use of aspirin
CPT/HCPCS: 36415; 71045; 71275; 80053; 81003; 82947; 85025; 85379; 85610; 85730; 93005; 99284; Q9967

== ENCOUNTER → 2020-10-12 12:40 | Outpatient (BNVA) | payer OTHER, SELFPAY | PROVIDERS: PCP Internal Medicine; Visit Provider Orthopaedic Surgery ==

== ENCOUNTER → 2020-11-23 09:24 | Outpatient (BNVA) | payer OTHER, SELFPAY | PROVIDERS: Visit Provider Orthopaedic Surgery ==

== ENCOUNTER 2020-12-02 11:00 | Outpatient (RCR) | payer OTHER, SELFPAY ==
--- NOTE | 2020-09-28 16:55 | MHC.PT.EP ---
[facility] [place] Office [place] Office [place] Office [address] [phone] F: [phone] F: [phone] F: [phone] F: [phone] Physical Therapy Plan of Care Date of Evaluation: 09/28/20 Date of Surgery: 08/29/2020 Diagnosis: R TKR. 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 Pt is deemed an appropriate candidate to receive skilled PT in order to address his physical limitations to improve his functional ability. Frequency and Duration: The patient will be seen 2 x/ wk x 10 wks. Short Term Goals: In 1 week; initiate HEP with evidence of compliance. In 3 weeks: > 119 degrees knee flexion achieved; initial: 90 degrees. In 3 weeks: full knee extension achieved; initial 7 degrees flexion. [place] [employer] Goals: In 10 weeks: Negotiated stairs with reciprocal fashion. In 10 weeks: I with home program. In 10 weeks: Pt will be able to walk x 1 mile with at most mild difficulty. Treatment Plan: Modalities to reduce pain, spasms and effusion. Manual therapy to restore motion and function. Therapeutic exercise to improve strength and flexibility. Neuromuscular re-education for posture and balance. Therapeutic activities to return to functional activities of daily living. Electronically signed by: Maxi Naranjo PT. Please sign and return to therapist. Thank you for your referral.
--- NOTE | 2020-12-02 17:05 | MHC.PT.DC ---
[facility] [place] Office [place] Office [place] Office [address]lin [address] [facility] [phone] F: [phone] F: [phone] F: [phone] F: [phone] Physical Therapy Discharge Report Diagnosis: R TKR. Date of Surgery: 08/29/2020 Date of Evaluation: 09/28/20 Date of Discharge: 12/02/20 Treatments to Date: 18 Cancellations to Date: 0 No Shows to Date: 0 Discharge Status: Improved Function Independent with HEP Discharge Summary: Joe has been an active participant in his therapy in and out of the clinic and is in agreement with DC at this time as he has met most of his therapeutic goals save for achieving full ROM (5-116). Electronically signed by: Maxi Naranjo PT. Please sign and return to therapist. Thank you for your referral.
== END 2020-12-02 17:14 | disposition home or self-care (01) ==
LOC: HO.PTCHIC 11:00
PROVIDERS: PCP Internal Medicine; Visit Provider Orthopaedic Surgery
DX: Z96.651 Presence of right artificial knee joint (principal)
CPT/HCPCS: 97110; 97140; 97162; 97530

== ENCOUNTER 2021-01-24 06:30 | Day surgery (SDC) | payer OTHER, SELFPAY ==
[2021-01-17 11:46] VITALS: BMI 34.4
--- NOTE | 2021-01-20 08:11 | HO.ANESPROP2 ---
Documented by User: Sandy Hope 01/20/21 08:12 HPI - Anesthesia Eval Consult details Narrative: 65yo M for Colonoscopy PMFSH Active Problems Active Problems: All Active Problems (Updated 10/02/20 @ 00:01 by Winnie Meredith) Status post total right knee replacement (Acute) Past Medical History Medical History Arthritis Asthma Back pain COVID-19 vaccine administered COVID-19 virus antibody negative Degenerative disc disease Diabetes Elevated cholesterol GERD (gastroesophageal reflux disease) History of pericarditis HTN (hypertension) Lab test negative for COVID-19 virus Primary osteoarthritis of right knee Scoliosis Sleep apnea Family History Family history of problems with anesthesia: No Surgical History Surgical History H/O total hip arthroplasty History of total right knee replacement Hx of colonoscopy History of Problems with Anesthesia: No Social History Social History Are you a primary college and career counselor to a significant other at home: No Do you presently have visiting nurse or other home services: No Alcohol intake: current Alcohol intake frequency: a few times a month Alcohol type: beer Patient Tobacco Use Status: Former Tobacco user Quit Date: Age 22 Tobacco use type: Cigarette Second Hand Smoke Exposure: No Use of substances other than those prescribed or required for medical reasons: No Have you been hit, kicked, punched, or otherwise hurt by someone within the past year? 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 Allergies Allergy/AdvReac Type Severity Reaction Status Date / Time No Known Allergies Allergy Verified 01/24/21 06:40 [No Known Allergies*] Home Medications Medication Instructions Recorded Confirmed Last Taken Type losartan 25 mg PO DAILY 04/18/20 01/17/21 04/21/20 History albuterol 2 mcg INHALATION Q4-6H PRN 04/19/20 01/17/21 Unknown History diltiazem HCl 1 cap PO QAM 04/19/20 01/24/21 01/24/21 05:30 History metformin 1,000 mg PO QAM 04/19/20 01/17/21 04/22/20 History metformin 500 mg PO QPM 04/19/20 01/17/21 04/22/20 History rosuvastatin 10 mg tablet 10 mg PO BEDTIME 06/28/20 01/17/21 Unknown History Exam Exam Date and Time: January 20, 2021 0811 Height,Weight and Vital Signs: Height 5 ft 10 in Weight 108.862 kg Assessment and Plan Assessment Anesthesia Assessment: Chart Reviewed Documented by User: Guera Green 01/24/21 07:25 PMFSH Past Medical History Medical History Arthritis Asthma Back pain COVID-19 vaccine administered COVID-19 virus antibody negative Degenerative disc disease Diabetes Elevated cholesterol GERD (gastroesophageal reflux disease) History of pericarditis HTN (hypertension) Lab test negative for COVID-19 virus Primary osteoarthritis of right knee Scoliosis Sleep apnea Surgical History Surgical History H/O total hip arthroplasty History of total right knee replacement Hx of colonoscopy Social History Social History Are you a primary college and career counselor to a significant other at home: No Do you presently have visiting nurse or other home services: No Alcohol intake: current Alcohol intake frequency: a few times a month Alcohol type: beer Patient Tobacco Use Status: Former Tobacco user Quit Date: Age 22 Tobacco use type: Cigarette Second Hand Smoke Exposure: No Use of substances other than those prescribed or required for medical reasons: No Have you been hit, kicked, punched, or otherwise hurt by someone within the past year? 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 Allergies Allergy/AdvReac Type Severity Reaction Status Date / Time No Known Allergies Allergy Verified 01/24/21 06:40 [No Known Allergies*] Home Medications Medication Instructions Recorded Confirmed Last Taken Type losartan 25 mg PO DAILY 04/18/20 01/17/21 04/21/20 History albuterol 2 mcg INHALATION Q4-6H PRN 04/19/20 01/17/21 Unknown History diltiazem HCl 1 cap PO QAM 04/19/20 01/24/21 01/24/21 05:30 History metformin 1,000 mg PO QAM 04/19/20 01/17/21 04/22/20 History metformin 500 mg PO QPM 04/19/20 01/17/21 04/22/20 History rosuvastatin 10 mg tablet 10 mg PO BEDTIME 06/28/20 01/17/21 Unknown History Exam Airway Mallampati Class: II TM Dist: >3cm Neck ROM: Full Loose/Missing/Broken Teeth: No Heart: RRR Lungs: CTA Assessment and Plan Assessment Anesthesia Assessment: Anesthesia Plan Discussed and Chart Reviewed Final Anesthetic Review NPO: Yes ASA Class: III Final Preanesthetic Review: Meds/Allgs Chart Reviewed, Consent Obtained/Reviewed and Anes Risks/Benef Reviewed Patient Risk: Intermediate Procedure Risk: Low Anesthetic Plan Anesthetic Plan: MAC: Disposition: Standard PACU
[2021-01-24 06:48] VITALS: BP 158/91; PULSE 99; RESP 16; TEMP 36.4; O2SAT 97
[2021-01-24 06:51] LABS: Glucose, Whole Blood 184 mg/dL (60-115)
[2021-01-24] MEDS: Lactated Ringers 1,000 ML 100 ML IVCONT (06:59)
--- NOTE | 2021-01-24 07:31 | MHC.SHP ---
Pre-Procedural Eval Section A Date of Service: 01/24/21 Section B Chief Complaint: hx of polyps Details of Present Illness: screening Relevant Family History (Specify if Yes): No Relevant Social History: None Present Medications: see Short Stay Collaborative assessment Medical History: No relevant PMH History of Previous Operations: No relevant previous surgery Allergies: Allergies Allergy/AdvReac Type Severity Reaction Status Date / Time No Known Allergies Allergy Verified 01/24/21 06:40 [No Known Allergies*] Review of Systems Sugical H&P ROS: Negative: Constitution, Cardiovascular, Respiratory, Neurological, Psychiatric, Hem-Onc, Allergic/Immunologic, Gastrointestinal, Genitourinary, Musculoskeletal, Integumentary, Endocrine and Eyes/Ears/Nose/Throat Exam Surgical H&P Exam: Normal: HEENT, Normal: Heart, Normal: Lungs, Normal: Extremities, Normal: Abdomen, Normal: Skin and Normal: Neurological Plan Diagnosis/Plan: Unchanged I have reviewed the history and physical and performed a pertinent physical examination on my patient. No changes have occurred unless specified.
[2021-01-24 08:06] VITALS: BP 132/91; PULSE 95; RESP 18; TEMP 36.8; O2SAT 97
--- NOTE | 2021-01-24 08:06 | P.BOP_ITS ---
Brief Operative Note Date of Service: 01/24/21 Pre-op diagnosis: screening Post-op diagnosis: same (colon polyp) Surgeon: Boris Mota Anesthesia: MAC Was an Spanish Lecturer used for this Procedure?: No Estimated blood loss (mL): 0 Pathology: other (polyp x1) Condition: stable Disposition: PACU
[2021-01-24 08:21] VITALS: BP 161/90; PULSE 85; RESP 18; TEMP 36.8; O2SAT 98
--- NOTE | 2021-01-24 08:48 | OP_ITS ---
SURGEON: Boris Mota MD INDICATIONS: Colon cancer screening. PREOPERATIVE DIAGNOSIS: POSTOPERATIVE DIAGNOSIS: PROCEDURE PERFORMED: Colonoscopy to the terminal ileum with snare polypectomy. ESTIMATED BLOOD LOSS: COMPLICATIONS: ANESTHESIA: ASSISTANTS: SPECIMENS: MEDICATIONS: Monitored anesthesia care. DESCRIPTION OF PROCEDURE: History and physical performed. The risks and benefits of the procedure were explained to the patient. Informed consent was obtained. The patient was placed in the left lateral decubitus position. A digital rectal exam was performed and was found to be normal. The Olympus pediatric video colonoscope was introduced into the rectum and advanced to the cecum without difficulty. The cecum was identified by transillumination, palpation, and identification of ileocecal valve. Examination was performed and the scope was removed. He tolerated the procedure well and was taken to recovery area in stable condition. FINDINGS: The terminal ileum was briefly examined and appeared normal. The visualized colonic mucosa was within normal limits. The quality of the prep was good. A single polyp was identified at 65 cm in the anal verge, removed using a snare in piecemeal fashion. No other polyps were identified. There was mild sigmoid diverticulosis. Retroflexed examination was remarkable for small internal hemorrhoids. IMPRESSION: Colon polyp. RECOMMENDATION: Follow up the biopsy results. MD PRATIK Marcelo/ERNESTOL / [id number]
== END 2021-01-24 08:42 | disposition home or self-care (01) ==
PROVIDERS: PCP Internal Medicine; Visit Provider Internal Medicine Gastroenterology
PROC: 0DJD8ZZ Inspection of Lower Intestinal Tract, Via Natural or Artificial Opening Endoscopic (ICD-10-PCS; CPT 45378; principal; 2021-01-24 07:30)
DX: Z12.11 Encounter for screening for malignant neoplasm of colon (principal); Z86.010 Personal history of colon polyps; D12.4 Benign neoplasm of descending colon; K64.8 Other hemorrhoids; K21.9 Gastro-esophageal reflux disease without esophagitis; G47.33 Obstructive sleep apnea (adult) (pediatric); J45.909 Unspecified asthma, uncomplicated; E11.9 Type 2 diabetes mellitus without complications; I10 Essential (primary) hypertension; Z79.82 Long term (current) use of aspirin; Z79.84 Long term (current) use of oral hypoglycemic drugs; Z79.899 Other long term (current) drug therapy; Z87.891 Personal history of nicotine dependence
CPT/HCPCS: 45385; 82947; 88305

== ENCOUNTER 2021-03-10 08:42 | Outpatient (REF) | payer OTHER, SELFPAY ==
[2021-03-10 09:44] LABS: Estimated Average Glucose 163 mg/dL; Hemoglobin A1c % 7.3 %
[2021-03-10 10:00] LABS: Alanine Aminotransferase 39 U/L (0-40); Albumin Level 4.3 g/dL (3.5-5.0); Alkaline Phosphatase 66 U/L (39-117); Anion Gap 15 (12-20); Aspartate Amino Transferase 21 U/L (5-37); Bilirubin Total 0.6 mg/dL (0.0-1.0); Blood Urea Nitrogen 16 mg/dL (9-16); Calcium 9.4 mg/dL (8.4-10.2); Carbon Dioxide 24 mmol/L (22-29); Chloride 106 mmol/L (96-108); Estimated Glomerular Filt Rate > 60; Glucose Random 173 mg/dL (60-115); Potassium 4.6 mmol/L (3.3-5.1); Sodium 140 mmol/L (135-145); Total Protein 7.2 g/dL (6.5-8.0)
== END 2021-03-10 08:43 | disposition home or self-care (01) ==
LOC: HO.LAB 08:42
PROVIDERS: PCP Internal Medicine; Visit Provider Internal Medicine
DX: E11.9 Type 2 diabetes mellitus without complications (principal); I10 Essential (primary) hypertension
CPT/HCPCS: 36415; 80053; 83036

== ENCOUNTER 2021-08-24 07:44 | Outpatient (REF) | payer MEDICARE, SELFPAY ==
[2021-08-24 10:35] LABS: MANUAL DIFF FLAG NO
[2021-08-24 10:42] LABS: Basophils Absolute Auto 0.1 X10*3/uL (0.0-0.2); Basophils Percent Auto 0.7 % (0-2); Eosinophils Absolute Auto 0.4 X10*3/uL (0.0-0.4); Eosinophils Percent Auto 5.5 % (0-4); Hematocrit 44.4 % (42.0-52.0); Hemoglobin 14.7 g/dl (14.0-18.0); Imm Gran Abs Auto 0.03 X10*3/uL (0.00-0.03); Imm Gran Pct Auto 0.4 % (0.0-0.4); Lymphocytes Absolute Auto 1.6 X10*3/uL (1.2-4.9); Lymphocytes Percent Auto 20.9 % (20-40); Mean Corpuscular HGB Conc 33.1 g/dl (31.0-36.0); Mean Corpuscular Hemoglobin 29.2 pg (27.0-33.0); Mean Corpuscular Volume 88.3 fL (80.0-98.0); Monocytes Absolute Auto 0.6 X10*3/uL (0.1-1.2); Monocytes Percent Auto 7.5 % (2-11); Neutrophils Absolute Auto 4.8 x10*3/uL (2.0-8.3); Platelet Count 272 X10*3/uL (160-400); Red Blood Count 5.03 X10*6/uL (4.60-5.80); Red Cell Distribution Width 13.2 % (11.0-16.0); White Blood Count 7.4 X10*3/uL (4.8-10.8)
[2021-08-24 10:49] LABS: Estimated Average Glucose 203 mg/dL; Hemoglobin A1c % 8.7 %
[2021-08-24 11:05] LABS: Alanine Aminotransferase 39 U/L (0-40); Albumin Level 4.3 g/dL (3.5-5.0); Alkaline Phosphatase 75 U/L (39-117); Anion Gap 16 (12-20); Aspartate Amino Transferase 25 U/L (5-37); Bilirubin Total 0.5 mg/dL (0.0-1.0); Blood Urea Nitrogen 17 mg/dL (9-16); Calcium 9.4 mg/dL (8.4-10.2); Carbon Dioxide 23 mmol/L (22-29); Chloride 104 mmol/L (96-108); Cholesterol 171 mg/dL; Estimated Glomerular Filt Rate > 60; Glucose Fasting 195 mg/dL (60-99); HDL Cholesterol 30 mg/dL; LDL Cholesterol Calculated 92 mg/dl; Potassium 4.5 mmol/L (3.3-5.1); Sodium 138 mmol/L (135-145); Total Protein 7.4 g/dL (6.5-8.0); Triglycerides 247 mg/dL
[2021-08-24 11:32] LABS: Prostate Specific Antigen Scr 0.71 ng/mL (<0.05-4.0)
== END 2021-08-24 07:45 | disposition home or self-care (01) ==
LOC: HO.10HDL 07:44
PROVIDERS: Visit Provider Internal Medicine
DX: Z12.5 Encounter for screening for malignant neoplasm of prostate (principal); R35.1 Nocturia; E78.00 Pure hypercholesterolemia, unspecified; I10 Essential (primary) hypertension; E11.9 Type 2 diabetes mellitus without complications; J45.909 Unspecified asthma, uncomplicated
CPT/HCPCS: 36415; 80053; 80061; 83036; 84153; 85025

== ENCOUNTER 2021-09-21 10:51 | Outpatient (REF) | payer MEDICARE, SELFPAY ==
--- NOTE | ~2021-09-21 | XR_ITS ---
EXAMINATION: KNEE X-RAY CLINICAL INFORMATION: Right knee replacement COMPARISON: Previous x-ray August 2020 TECHNIQUE: Standing AP view of both knees and sunrise and lateral view of the right knee FINDINGS: There is a 3 component right knee replacement. No fracture, dislocation or x-ray evidence of loosening is seen. There is overlap of the lateral patella and femoral prosthesis on the sunrise view. This may be related to patient positioning or degree of flexion. There is a small joint effusion. Standing AP view of the left knee demonstrates mild joint space narrowing at the medial femoral tibial joint. There is soft tissue calcification or ossification adjacent to the lateral femoral condyle. XR/XR knee RT 2V IMPRESSION: 3 component right knee replacement. Overlap of the lateral patellar and femoral prosthesis on the sunrise view, question related to the degree of flexion or patient positioning. Small joint effusion.
--- NOTE | ~2021-09-21 | XR_ITS ---
EXAMINATION: KNEE X-RAY CLINICAL INFORMATION: Right knee replacement COMPARISON: Previous x-ray August 2020 TECHNIQUE: Standing AP view of both knees and sunrise and lateral view of the right knee FINDINGS: There is a 3 component right knee replacement. No fracture, dislocation or x-ray evidence of loosening is seen. There is overlap of the lateral patella and femoral prosthesis on the sunrise view. This may be related to patient positioning or degree of flexion. There is a small joint effusion. Standing AP view of the left knee demonstrates mild joint space narrowing at the medial femoral tibial joint. There is soft tissue calcification or ossification adjacent to the lateral femoral condyle. XR/XR knee standing BI IMPRESSION: 3 component right knee replacement. Overlap of the lateral patellar and femoral prosthesis on the sunrise view, question related to the degree of flexion or patient positioning. Small joint effusion.
== END 2021-09-21 10:52 | disposition home or self-care (01) ==
LOC: HO.HOSX 10:51
PROVIDERS: Visit Provider Physician Assistant
DX: Z47.1 Aftercare following joint replacement surgery (principal); Z96.651 Presence of right artificial knee joint
CPT/HCPCS: 73560; 73565; 99212

== ENCOUNTER 2021-11-24 08:10 | Outpatient (REF) | payer MEDICARE, SELFPAY ==
[2021-11-24 11:36] LABS: Anion Gap 14 (12-20); Blood Urea Nitrogen 18 mg/dL (9-16); Calcium 9.5 mg/dL (8.4-10.2); Carbon Dioxide 25 mmol/L (22-29); Chloride 105 mmol/L (96-108); Estimated Glomerular Filt Rate > 60; Glucose Random 172 mg/dL (60-115); Potassium 4.7 mmol/L (3.3-5.1); Sodium 139 mmol/L (135-145)
[2021-11-24 11:41] LABS: Estimated Average Glucose 166 mg/dL; Hemoglobin A1c % 7.4 %
== END 2021-11-24 08:11 | disposition home or self-care (01) ==
LOC: HO.WFDLDS 08:10
PROVIDERS: Visit Provider Internal Medicine
DX: E11.9 Type 2 diabetes mellitus without complications (principal); I10 Essential (primary) hypertension
CPT/HCPCS: 36415; 80048; 83036

== ENCOUNTER 2022-06-12 07:58 | Outpatient (REF) | payer MEDICARE, SELFPAY ==
[2022-06-12 11:09] LABS: MANUAL DIFF FLAG NO
[2022-06-12 11:20] LABS: Basophils Absolute Auto 0.1 X10*3/uL (0.0-0.2); Basophils Percent Auto 0.8 % (0-2); Eosinophils Absolute Auto 0.4 X10*3/uL (0.0-0.4); Eosinophils Percent Auto 4.7 % (0-4); Imm Gran Abs Auto 0.02 X10*3/uL (0.00-0.03); Imm Gran Pct Auto 0.3 % (0.0-0.4); Lymphocytes Absolute Auto 1.4 X10*3/uL (1.2-4.9); Lymphocytes Percent Auto 19.3 % (20-40); Mean Corpuscular HGB Conc 33.3 g/dl (31.0-36.0); Mean Corpuscular Hemoglobin 29.2 pg (27.0-33.0); Mean Corpuscular Volume 87.7 fL (80.0-98.0); Mean Platelet Volume 11.1 fL (9.4-12.4); Monocytes Absolute Auto 0.6 X10*3/uL (0.1-1.2); Neutrophils Percent Auto 66.9 % (45-73); Platelet Count 261 X10*3/uL (160-400); Red Blood Count 4.79 X10*6/uL (4.60-5.80); Red Cell Distribution Width 13.1 % (11.0-16.0); White Blood Count 7.5 X10*3/uL (4.8-10.8)
[2022-06-12 11:38] LABS: Alanine Aminotransferase 55 U/L (0-40); Albumin Level 4.1 g/dL (3.5-5.0); Alkaline Phosphatase 73 U/L (39-117); Anion Gap 15 (12-20); Aspartate Amino Transferase 32 U/L (5-37); Bilirubin Total 0.6 mg/dL (0.0-1.0); Blood Urea Nitrogen 16 mg/dL (9-16); Calcium 8.9 mg/dL (8.4-10.2); Carbon Dioxide 23 mmol/L (22-29); Chloride 104 mmol/L (96-108); Cholesterol 148 mg/dL; Estimated Glomerular Filt Rate > 60; Glucose Fasting 144 mg/dL (60-99); HDL Cholesterol 34 mg/dL; LDL Cholesterol Calculated 79 mg/dl; Potassium 4.4 mmol/L (3.3-5.1); Sodium 138 mmol/L (135-145); Triglycerides 178 mg/dL
[2022-06-12 11:56] LABS: Estimated Average Glucose 166 mg/dL; Hemoglobin A1c % 7.4 %
[2022-06-12 12:02] LABS: Prostate Specific Antigen Scr 0.54 ng/mL (<0.05-4.0)
== END 2022-06-12 07:59 | disposition home or self-care (01) ==
LOC: HO.10HDL 07:58
PROVIDERS: Visit Provider Internal Medicine
DX: Z12.5 Encounter for screening for malignant neoplasm of prostate (principal); I10 Essential (primary) hypertension; E11.9 Type 2 diabetes mellitus without complications; K21.9 Gastro-esophageal reflux disease without esophagitis; E78.00 Pure hypercholesterolemia, unspecified
CPT/HCPCS: 36415; 80053; 80061; 83036; 84153; 85025

== ENCOUNTER 2022-10-16 17:56 | Observation (INO) | payer MEDICARE, SELFPAY ==
--- NOTE | ~2022-10-16 | XR_ITS ---
EXAMINATION: XR CHEST 7:45 PM CLINICAL INFORMATION: Vomiting, cough, rule out pneumonia COMPARISON: 09/30/2020 TECHNIQUE: Frontal and lateral views of the chest were obtained. FINDINGS: The lungs are clear. There are no pleural effusions. The cardiomediastinal silhouette is stable. XR/XR chest 2V IMPRESSION: No acute disease.
--- NOTE | ~2022-10-16 | CT_ITS ---
EXAMINATION: CT HEAD WITHOUT CONTRAST CLINICAL INFORMATION: Lower extremity weakness. Rule out bleed/stroke. COMPARISON: 12/26/2019 TECHNIQUE: Contiguous axial imaging was performed from the skull base to vertex without intravenous contrast. This CT examination was performed using dose optimization techniques as appropriate, variously including the following: * Automated exposure control * Adjustment of mA and/or kV according to patient size (this includes techniques or standardized protocols for targeted exams where dose is matched to indication/reason for exam; i.e. extremities or head) Use of iterative reconstruction technique DLP: 733 mGy-cm. FINDINGS: There is no evidence of acute intracranial hemorrhage or territorial infarction. No abnormal mass effect or midline shift is seen. [place] to white matter differentiation is well preserved. No extra-axial fluid collections are identified. No hydrocephalus. Proportional prominence of the ventricles and sulcal spaces is consistent with mild volume loss. Patchy periventricular and deep white matter hypoattenuation is consistent with mild small vessel ischemic changes. 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 The osseous structures and soft tissues are normal. The mastoid air cells are well aerated. Moderate opacification throughout the paranasal sinuses. CT/CT head/brain wo IV con IMPRESSION: No acute intracranial pathology. Chronic volume loss with small vessel ischemic change.
[2022-10-16 18:07] VITALS: BP 157/90; PULSE 140; RESP 18; TEMP 37; O2SAT 95; BMI 34.8
--- NOTE | 2022-10-16 18:34 | ECG_ITS ---
Test Reason : tachycardia Blood Pressure : / mmHG Vent. Rate : 130 BPM Atrial Rate : 130 BPM P-R Int : 136 ms QRS Dur : 082 ms QT Int : 296 ms P-R-T Axes : 043 -14 -03 degrees QTc Int : 435 ms Sinus tachycardia with Premature atrial complexes Cannot rule out Anterior infarct , age undetermined Abnormal ECG When compared with ECG of 30-SEP-2020 21:19, Premature ventricular complexes are no longer Present Referred By: Arias Marks Electronically Signed By:TATIANA CALLOWAY
--- NOTE | 2022-10-16 18:35 | ED.NAVMDI ---
HPI - Nausea/Vomiting/Diarrhea General Chief complaint: Nausea/Vomiting/Diarrhea Stated complaint: nausea,vomiting Time Seen by Provider: 10/16/22 18:02 Source: patient and family (, Kristie who was a nurse) Mode of arrival: EMS Limitations: no limitations History of Present Illness HPI Narrative: 67-year-old male who presents emergency department for evaluation of nausea, vomiting, weakness. Patient states that he got sick this morning at 02:00 hours. He states he has had 3-4 episodes of vomiting and constant nausea. He has not been able to eat or drink since 02:00 hours. Patient states that he may have had 1 bowel movement this morning but he denied having diarrhea he states he took his temperature at home and it was 99.2 degrees F orally. He states that he was feeling weak. The patient's is a nurse and she has been trying to encourage him to take fluids but he has only had approximately 6 oz of fluid to drink today. He has not been able to take his medications. His states that he was incontinent of urine twice but the patient states that he was too weak to get out of bed any new that he had urinated on himself. The patient's and the patient's daughter try to get him to stand get out of bed but he was too weak any slid to the floor. At that point, his called an ambulance and the patient was brought to the emergency department for evaluation The patient denied fever or chills. He states that he has had rhinorrhea. He denied cough, chest pain, shortness of breath. He denied diarrhea, dark black stools or bloody stools. He denied myalgias or arthralgias. 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 Related Data Home Medications Medication Instructions Recorded Confirmed losartan 25 mg tablet 25 mg PO DAILY 04/18/20 09/21/21 albuterol 90 mcg/actuation aerosol 2 mcg inhalation Q4-6H PRN 04/19/20 09/21/21 inhaler Shortness Of Breath diltiazem HCl 240 mg 1 cap PO QAM 04/19/20 09/21/21 capsule,extended release 24 hr metformin 500 mg tablet 1,000 mg PO QAM 04/19/20 09/21/21 metformin 500 mg tablet 500 mg PO QPM 04/19/20 09/21/21 rosuvastatin 10 mg tablet 10 mg PO BEDTIME 06/28/20 09/21/21 glipizide 2.5 mg tablet, extended 2.5 mg PO DAILY 09/21/21 09/21/21 release 24 hr Previous Rx's Medication Instructions Recorded aspirin 325 mg tablet 325 mg PO BID 14 days #28 tabs 08/30/20 omeprazole 20 mg capsule,delayed 1 cap PO DAILY 30 days #0 caps 08/30/20 release acetaminophen 325 mg tablet 325 mg PO Q6H #240 tabs 08/29/21 amoxicillin 500 mg tablet 2,000 mg PO ONCE 1 day #4 tabs 03/30/22 Allergies Allergy/AdvReac Type Severity Reaction Status Date / Time No Known Allergies Allergy Verified 09/21/21 14:14 [No Known Allergies*] Review of Systems Review of Systems: Yes all other systems are reviewed and are negative [facility] Past Medical History [facility] Narrative: Social history: 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 He lives at home with his . He denies tobacco use. He states that he smoked for 1 year as a teenager. He drinks beers 2 times a week. He denies drug use. Medical History Arthritis Asthma Back pain COVID-19 vaccine administered COVID-19 virus antibody negative Degenerative disc disease Diabetes Elevated cholesterol GERD (gastroesophageal reflux disease) History of pericarditis HTN (hypertension) Lab test negative for COVID-19 virus Primary osteoarthritis of right knee Scoliosis Sleep apnea Surgical History H/O total hip arthroplasty History of total right knee replacement Hx of colonoscopy Social History Social History Are you a primary youth career specialist to a significant other at home: No Do you presently have visiting nurse or other home services: No Alcohol intake: current Alcohol intake frequency: a few times a month Alcohol type: beer Patient Tobacco Use Status: Former Tobacco user Quit Date: Age 22 Tobacco use type: Cigarette Second Hand Smoke Exposure: No Advance Directives: No Advance Directives Information Provided: No service: No Current occupational status: employed 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 Physical Exam Vital Signs: Vital Signs: Last Vital Signs Temp 99.9 F 10/16/22 23:47 Pulse 119 H 10/17/22 01:37 Resp 16 10/17/22 01:37 BP 129/69 10/17/22 01:37 Pulse Ox 94 10/17/22 01:37 O2 Del Method Room Air 10/17/22 01:37 BMI result Body Mass Index 34.8 Const: General: cooperative and no acute distress Limitations: no limitations HEENT: Head: Yes normal to inspection, Yes normocephalic and Yes atraumatic Ears: external ears normal General nose exam: Normal external nose present Face and sinus: Yes normal facial exam Mouth: Normal oral and palatal mucosa present Throat: Yes posterior oropharynx normal Eyes: General: appearance normal, both eyes and all related structures Neck: Neck: Yes normal visual inspection, Yes no lymphadenopathy, Yes trachea midline and Yes supple Chest: Chest palpation & inspection: normal inspection of the chest and normal palpation of entire chest wall Resp: Effort & Inspection: normal respiratory effort and able to speak in complete sentences Auscultation: clear to auscultation bilaterally Cardio: Rate: regular rate Rhythm: regular rhythm Heart sounds: S1 normal heart sound present, S2 normal heart sound present and no murmurs GI: Inspection: Yes normal to inspection Palpation (GI): Soft to palpation, nontender and no guarding Auscultation: normal bowel sounds : General: Yes no CVA tenderness Back/Spine/Pelvis: Back: no CVA tenderness Skin: General skin exam: no rashes or lesions noted Neuro: Other: Awake, alert,, oriented to person place, gives a very get history. Cranial nerves 2-12 are intact. Strength is normal and symmetric bilaterally. Reflex: Left positive patellar reflex, right unobtainable secondary to knee replacement, unable to obtain reflexes in the upper extremities. Symmetric light touch. Extrem: General: Yes normal to inspection Psych: Appearance: grossly normal Speech and movement: Normal speech and movement present Affect: normal affect Attitude: cooperative Thought process: Normal thought process present Thought content: Normal thought content present Medications Administered Discontinued Medications Generic Name Dose Route Start Last Admin Trade Name Freq PRN Reason Stop Dose Admin Acetaminophen 975 mg 10/16/22 21:46 10/16/22 22:52 Acetaminophen 325 Mg Tablet PO 10/16/22 21:47 975 mg ONCE STA Administration Sodium Chloride 1,000 mls @ 999 mls/hr 10/16/22 18:32 10/16/22 21:16 Ns IV 10/16/22 19:32 Infused .Q1H1M STA Infusion Sodium Chloride 1,000 mls @ 999 mls/hr 10/16/22 20:37 10/16/22 21:16 Ns IV 10/16/22 21:37 999 mls/hr .Q1H1M STA Administration Ondansetron HCl 4 mg 10/16/22 21:55 10/16/22 22:52 Ondansetron Hcl 4 Mg/2 Ml Vial IVPUSH 10/16/22 21:56 4 mg ONCE ONE Administration Procedures Lumbar Puncture Time Out Performed: Yes Patient Position: upright Skin Prep: Povidone-Iodine 1% Local Anesthetic: lidocaine 1% Amount of anesthesia used (mL): 5 Spinal Needle Gauge: 20G Interspace Used: L4-L5 Fluid Initially Obtained: clear Complications: Need to have other Practitioner Attempt (Unsuccessful) and other (Multiple attempt need before sample was obtained, I suspect that the spinal needle was too short ,attempt was successful w compressing back so needle extended further) Medical Decision Making Medical Decision Making MDM Narrative: 67-year-old male who presents emergency department for evaluation of nausea vomiting, no oral intake since 02:00 hours also had 2 episodes of incontinence of urine (which he states he was aware of but could get out of bed to urinate) with weakness and inability to stand prior to coming to emergency department. Vital signs revealed an elevated blood pressure of 157/90 and elevated pulse of 140 (the patient states that he always has a hard heart rate). Patient's neurologic exam was nonfocal. I did order a CBC, CMP, CK, lipase, PT/INR, troponin, COVID-19, influenza, urinalysis, blood cultures x2, lactate EKG, chest x-ray two view. Patient was ordered to get normal saline 2 L IV. He received Zofran in route to the hospital and states that he no longer has nausea. 0226: My interpretation of the patient's laboratory evaluation is as follows: CBC was normal. CMP was normal except for elevated glucose 222 and low bicarb 21. Lactic acid was elevated at 4.0 but improved after 2 L of lactated Ringer's, most likely secondary to starvation ketosis. COVID-19 influenza were negative. Urinalysis was negative. CSF fluid: WBC 5 with 1 neutrophil, 19 lymphocytes, 12 monocytes. Glucose was 127. Protein was elevated at 65. Fluid was clear and colorless. Chest x-ray was normal pain. CT scan of the brain was unremarkable. The patient is able to eat and drink however able to stand. When the nurses had him stand up was extremely weak and his legs were giving out on him and he was placed back into bed. I am concerned the patient may have Guillain-[place] syndrome secondary to a viral illness. I will discuss admission with the covering hospitalist and our smelting engineer 0256: I did discuss the patient with our smelting engineer, Dr. Howard. He states that the patient does not have any respiratory distress then the patient can managed on the hospitalist service. Dr. Howard recommended doing a respiratory panel, GI panel and adding oligoclonal bands to CSF I did discuss the patient's presentation with the covering hospitalist, Dr. Barnard and the patient will be admitted to the hospital service. Differential Diagnosis Differential diagnosis includes but is not limited to viral syndrome, COVID-19, influenza, pneumonia, Guillain-[place] syndrome, cauda equina syndrome Lab Data 10/16/22 20:11 10/16/22 20:11 Labs: Lab Results 10/16/22 10/16/22 10/16/22 Range/Units 19:57 19:57 20:11 WBC 8.6 (4.8-10.8) X10*3/uL RBC 5.40 (4.60-5.80) X10*6/uL Hgb 15.6 (14.0-18.0) g/dl Hct 46.9 (42.0-52.0) % MCV 86.9 (80.0-98.0) fL MCH 28.9 (27.0-33.0) pg MCHC 33.3 (31.0-36.0) g/dl RDW 13.7 (11.0-16.0) % Plt Count 214 (160-400) X10*3/uL MPV 10.6 (9.4-12.4) fL Immature Gran % (Auto) 0.2 (0.0-0.4) % Neut % (Auto) 93.2 H (45-73) % Lymph % (Auto) 2.9 L (20-40) % [place] % (Auto) 3.4 (2-11) % Eos % (Auto) 0.0 (0-4) % Baso % (Auto) 0.3 (0-2) % Lymph # (Auto) 0.3 L (1.2-4.9) X10*3/uL [place] # (Auto) 0.3 (0.1-1.2) X10*3/uL Eos # (Auto) 0.0 (0.0-0.4) X10*3/uL Baso # (Auto) 0.0 (0.0-0.2) X10*3/uL Abs Immat Gran (auto) 0.02 (0.00-0.03) X10*3/uL Absolute Neuts (auto) 8.0 (2.0-8.3) x10*3/uL Absolute Nucleated RBC 0.000 (0.0-0.012) X10*3/uL Nucleated RBC % (auto) 0.0 (0.0-0.2) /100WBC Smear Tech's Comments VERIFIED APTT (26.0-36.4) SEC Sodium (135-145) mmol/L Potassium (3.3-5.1) mmol/L Chloride (96-108) mmol/L Carbon Dioxide (22-29) mmol/L Anion Gap (12-20) BUN (9-16) mg/dL Creatinine (0.5-1.4) mg/dL Estim Creat Clear Calc Estimated GFR POC Glucose (60-115) mg/dL Random Glucose (60-115) mg/dL Lactic Acid (0.5-2.0) mmol/L Lactic Acid F/U @ 2Hr (0.5-2.0) mmol/L Calcium (8.4-10.2) mg/dL Total Bilirubin (0.0-1.0) mg/dL AST (5-37) U/L ALT (0-40) U/L Alkaline Phosphatase (39-117) U/L Total Creatine Kinase (38-174) U/L Troponin I High Sens (<3.5-35.0) ng/L Total Protein (6.5-8.0) g/dL Albumin (3.5-5.0) g/dL Lipase (8-78) U/L Urine Color Urine Appearance Urine pH (5.0-9.0) Ur Specific [place] (1.005-1.025) Urine Protein (Neg-Trace) mg/dL Urine Glucose (UA) (Negative) mg/dL Urine Ketones (Negative) mg/dL Urine Blood (Negative) Urine Nitrite (Negative) Ur Leukocyte Esterase (Negative) Urine RBC (0-2) /HPF Urine WBC (0-5) /HPF Ur Squamous Epith Cells (0-2) /HPF Urine Bacteria (None Seen) Hyaline Casts (0-2) /LPF CSF Tube Number CSF Volume ML CSF Appearance CSF Color CSF WBC MM*3 CSF RBC MM*3 CSF Neutrophils % CSF Lymphocytes % CSF Monocytes % % CSF Appearance (b) CSF Glucose mg/dL CSF Total Protein (15-45) mg/dL COVID-19 (EDDIE) Negative (Negative) COVID-19 Clin Com See Note Influenza Type A (KIANNA) Negative (Negative) Influenza Type B (KIANNA) Negative (Negative) Influenza A & B Note See Note 10/16/22 10/16/22 10/16/22 Range/Units 20:11 20:11 20:11 WBC (4.8-10.8) X10*3/uL RBC (4.60-5.80) X10*6/uL Hgb (14.0-18.0) g/dl Hct (42.0-52.0) % MCV (80.0-98.0) fL MCH (27.0-33.0) pg MCHC (31.0-36.0) g/dl RDW (11.0-16.0) % Plt Count (160-400) X10*3/uL MPV (9.4-12.4) fL Immature Gran % (Auto) (0.0-0.4) % Neut % (Auto) (45-73) % Lymph % (Auto) (20-40) % [place] % (Auto) (2-11) % Eos % (Auto) (0-4) % Baso % (Auto) (0-2) % Lymph # (Auto) (1.2-4.9) X10*3/uL [place] # (Auto) (0.1-1.2) X10*3/uL Eos # (Auto) (0.0-0.4) X10*3/uL Baso # (Auto) (0.0-0.2) X10*3/uL Abs Immat Gran (auto) (0.00-0.03) X10*3/uL Absolute Neuts (auto) (2.0-8.3) x10*3/uL Absolute Nucleated RBC (0.0-0.012) X10*3/uL Nucleated RBC % (auto) (0.0-0.2) /100WBC Smear Tech's Comments APTT 23.4 L (26.0-36.4) SEC Sodium 138 (135-145) mmol/L Potassium 4.3 (3.3-5.1) mmol/L Chloride 103 (96-108) mmol/L Carbon Dioxide 21 L (22-29) mmol/L Anion Gap 18 (12-20) BUN 20 H (9-16) mg/dL Creatinine 1.39 (0.5-1.4) mg/dL Estim Creat Clear Calc 66.9 Estimated GFR 51 POC Glucose (60-115) mg/dL Random Glucose 225 H (60-115) mg/dL Lactic Acid (0.5-2.0) mmol/L Lactic Acid F/U @ 2Hr (0.5-2.0) mmol/L Calcium 8.2 L D (8.4-10.2) mg/dL Total Bilirubin 0.6 (0.0-1.0) mg/dL AST 24 (5-37) U/L ALT 40 (0-40) U/L Alkaline Phosphatase 66 (39-117) U/L Total Creatine Kinase 111 (38-174) U/L Troponin I High Sens 7.6 (<3.5-35.0) ng/L Total Protein 6.8 (6.5-8.0) g/dL Albumin 3.9 (3.5-5.0) g/dL Lipase 21 (8-78) U/L Urine Color Urine Appearance Urine pH (5.0-9.0) Ur Specific [place] (1.005-1.025) Urine Protein (Neg-Trace) mg/dL Urine Glucose (UA) (Negative) mg/dL Urine Ketones (Negative) mg/dL Urine Blood (Negative) Urine Nitrite (Negative) Ur Leukocyte Esterase (Negative) Urine RBC (0-2) /HPF Urine WBC (0-5) /HPF Ur Squamous Epith Cells (0-2) /HPF Urine Bacteria (None Seen) Hyaline Casts (0-2) /LPF CSF Tube Number CSF Volume ML CSF Appearance CSF Color CSF WBC MM*3 CSF RBC MM*3 CSF Neutrophils % CSF Lymphocytes % CSF Monocytes % % CSF Appearance (b) CSF Glucose mg/dL CSF Total Protein (15-45) mg/dL COVID-19 (EDDIE) (Negative) COVID-19 Clin Com Influenza Type A (KIANNA) (Negative) Influenza Type B (KIANNA) (Negative) Influenza A & B Note 10/16/22 10/16/22 10/16/22 Range/Units 20:11 22:45 23:43 WBC (4.8-10.8) X10*3/uL RBC (4.60-5.80) X10*6/uL Hgb (14.0-18.0) g/dl Hct (42.0-52.0) % MCV (80.0-98.0) fL MCH (27.0-33.0) pg MCHC (31.0-36.0) g/dl RDW (11.0-16.0) % Plt Count (160-400) X10*3/uL MPV (9.4-12.4) fL Immature Gran % (Auto) (0.0-0.4) % Neut % (Auto) (45-73) % Lymph % (Auto) (20-40) % [place] % (Auto) (2-11) % Eos % (Auto) (0-4) % Baso % (Auto) (0-2) % Lymph # (Auto) (1.2-4.9) X10*3/uL [place] # (Auto) (0.1-1.2) X10*3/uL Eos # (Auto) (0.0-0.4) X10*3/uL Baso # (Auto) (0.0-0.2) X10*3/uL Abs Immat Gran (auto) (0.00-0.03) X10*3/uL Absolute Neuts (auto) (2.0-8.3) x10*3/uL Absolute Nucleated RBC (0.0-0.012) X10*3/uL Nucleated RBC % (auto) (0.0-0.2) /100WBC Smear Tech's Comments APTT (26.0-36.4) SEC Sodium (135-145) mmol/L Potassium (3.3-5.1) mmol/L Chloride (96-108) mmol/L Carbon Dioxide (22-29) mmol/L Anion Gap (12-20) BUN (9-16) mg/dL Creatinine (0.5-1.4) mg/dL Estim Creat Clear Calc Estimated GFR POC Glucose (60-115) mg/dL Random Glucose (60-115) mg/dL Lactic Acid 4.0 H* (0.5-2.0) mmol/L Lactic Acid F/U @ 2Hr 1.9 (0.5-2.0) mmol/L Calcium (8.4-10.2) mg/dL Total Bilirubin (0.0-1.0) mg/dL AST (5-37) U/L ALT (0-40) U/L Alkaline Phosphatase (39-117) U/L Total Creatine Kinase (38-174) U/L Troponin I High Sens (<3.5-35.0) ng/L Total Protein (6.5-8.0) g/dL Albumin (3.5-5.0) g/dL Lipase (8-78) U/L Urine Color Dark Yellow Urine Appearance Clear Urine pH 5.5 (5.0-9.0) Ur Specific [place] >= 1.030 H (1.005-1.025) Urine Protein 30 (1+) H (Neg-Trace) mg/dL Urine Glucose (UA) 500 H (Negative) mg/dL Urine Ketones 15 (Negative) mg/dL Urine Blood Negative (Negative) Urine Nitrite Negative (Negative) Ur Leukocyte Esterase Negative (Negative) Urine RBC 0-2 (0-2) /HPF Urine WBC 0-5 (0-5) /HPF Ur Squamous Epith Cells 0-2 (0-2) /HPF Urine Bacteria None Seen (None Seen) Hyaline Casts 0-2 (0-2) /LPF CSF Tube Number CSF Volume ML CSF Appearance CSF Color CSF WBC MM*3 CSF RBC MM*3 CSF Neutrophils % CSF Lymphocytes % CSF Monocytes % % CSF Appearance (b) CSF Glucose mg/dL CSF Total Protein (15-45) mg/dL COVID-19 (EDDIE) (Negative) COVID-19 Clin Com Influenza Type A (KIANNA) (Negative) Influenza Type B (KIANNA) (Negative) Influenza A & B Note 10/17/22 10/17/22 10/17/22 Range/Units 01:09 01:09 01:10 WBC (4.8-10.8) X10*3/uL RBC (4.60-5.80) X10*6/uL Hgb (14.0-18.0) g/dl Hct (42.0-52.0) % MCV (80.0-98.0) fL MCH (27.0-33.0) pg MCHC (31.0-36.0) g/dl RDW (11.0-16.0) % Plt Count (160-400) X10*3/uL MPV (9.4-12.4) fL Immature Gran % (Auto) (0.0-0.4) % Neut % (Auto) (45-73) % Lymph % (Auto) (20-40) % [place] % (Auto) (2-11) % Eos % (Auto) (0-4) % Baso % (Auto) (0-2) % Lymph # (Auto) (1.2-4.9) X10*3/uL [place] # (Auto) (0.1-1.2) X10*3/uL Eos # (Auto) (0.0-0.4) X10*3/uL Baso # (Auto) (0.0-0.2) X10*3/uL Abs Immat Gran (auto) (0.00-0.03) X10*3/uL Absolute Neuts (auto) (2.0-8.3) x10*3/uL Absolute Nucleated RBC (0.0-0.012) X10*3/uL Nucleated RBC % (auto) (0.0-0.2) /100WBC Smear Tech's Comments APTT (26.0-36.4) SEC Sodium (135-145) mmol/L Potassium (3.3-5.1) mmol/L Chloride (96-108) mmol/L Carbon Dioxide (22-29) mmol/L Anion Gap (12-20) BUN (9-16) mg/dL Creatinine (0.5-1.4) mg/dL Estim Creat Clear Calc Estimated GFR POC Glucose 241 H (60-115) mg/dL Random Glucose (60-115) mg/dL Lactic Acid (0.5-2.0) mmol/L Lactic Acid F/U @ 2Hr (0.5-2.0) mmol/L Calcium (8.4-10.2) mg/dL Total Bilirubin (0.0-1.0) mg/dL AST (5-37) U/L ALT (0-40) U/L Alkaline Phosphatase (39-117) U/L Total Creatine Kinase (38-174) U/L Troponin I High Sens (<3.5-35.0) ng/L Total Protein (6.5-8.0) g/dL Albumin (3.5-5.0) g/dL Lipase (8-78) U/L Urine Color Urine Appearance Urine pH (5.0-9.0) Ur Specific [place] (1.005-1.025) Urine Protein (Neg-Trace) mg/dL Urine Glucose (UA) (Negative) mg/dL Urine Ketones (Negative) mg/dL Urine Blood (Negative) Urine Nitrite (Negative) Ur Leukocyte Esterase (Negative) Urine RBC (0-2) /HPF Urine WBC (0-5) /HPF Ur Squamous Epith Cells (0-2) /HPF Urine Bacteria (None Seen) Hyaline Casts (0-2) /LPF CSF Tube Number 3 2 CSF Volume 1.5 ML CSF Appearance CLEAR CSF Color COLORLESS CSF WBC 5 MM*3 CSF RBC 15 MM*3 CSF Neutrophils 1 % CSF Lymphocytes 19 % CSF Monocytes % 12 % CSF Appearance (b) Clear, Colorless CSF Glucose 127 mg/dL CSF Total Protein 65.1 H (15-45) mg/dL COVID-19 (EDDIE) (Negative) COVID-19 Clin Com Influenza Type A (KIANNA) (Negative) Influenza Type B (KIANNA) (Negative) Influenza A & B Note Critical Care Time Critical Care Time Critical Care Time: Yes Total Critical Care Time: 75 Attestation: Critical Care: The patient was critically ill with a high probability of imminent or life threatening deterioration. I spent greater than 30 minutes of discontinuous time evaluating the patient,delivering critical care at the bedside, discussing and evaluating pertinent data with consultants. Critical care time does not include time spent performing separately billable procedures or teaching. Total time spent performing critical care was 75 minutes. Discharge Plan Discharge Clinical Impression: Viral syndrome, Acute dehydration, Bilateral leg weakness, GBS (Guillain [place] syndrome) Vomiting Qualifiers: Nausea presence: with nausea Patient Disposition: Admitted As Inpatient
[2022-10-16] MEDS: 0.9 % Sodium Chloride 1,000 ML 999 ML IV ×2 (18:47→21:16)
[2022-10-16 20:19] LABS: COVID-19 Test Negative (Negative); IDNOW Serial# BCCEAD1C
[2022-10-16 20:20] LABS: IDNOW Serial# 9DB6401D; Influenza A Negative (Negative); Influenza B2 Negative (Negative)
[2022-10-16 20:20] LABS: Basophils Percent Auto 0.3 % (0-2); Hematocrit 46.9 % (42.0-52.0); Hemoglobin 15.6 g/dl (14.0-18.0); Imm Gran Abs Auto 0.02 X10*3/uL (0.00-0.03); Imm Gran Pct Auto 0.2 % (0.0-0.4); Lymphocytes Absolute Auto 0.3 X10*3/uL (1.2-4.9); Lymphocytes Percent Auto 2.9 % (20-40); MANUAL DIFF FLAG SCAN; Mean Corpuscular HGB Conc 33.3 g/dl (31.0-36.0); Mean Corpuscular Hemoglobin 28.9 pg (27.0-33.0); Mean Corpuscular Volume 86.9 fL (80.0-98.0); Mean Platelet Volume 10.6 fL (9.4-12.4); Monocytes Absolute Auto 0.3 X10*3/uL (0.1-1.2); Monocytes Percent Auto 3.4 % (2-11); Neutrophils Percent Auto 93.2 % (45-73); Platelet Count 214 X10*3/uL (160-400); Red Cell Distribution Width 13.7 % (11.0-16.0); SCAN SMEAR FLAG 1; White Blood Count 8.6 X10*3/uL (4.8-10.8)
[2022-10-16 20:52] LABS: SLIDE REVIEW VERIFIED
[2022-10-16 20:56] LABS: Alanine Aminotransferase 40 U/L (0-40); Albumin Level 3.9 g/dL (3.5-5.0); Alkaline Phosphatase 66 U/L (39-117); Anion Gap 18 (12-20); Aspartate Amino Transferase 24 U/L (5-37); Bilirubin Total 0.6 mg/dL (0.0-1.0); Blood Urea Nitrogen 20 mg/dL (9-16); Calcium 8.2 mg/dL (8.4-10.2); Carbon Dioxide 21 mmol/L (22-29); Chloride 103 mmol/L (96-108); Creatinine Clr Calc Pharmacy 66.9; Estimated Glomerular Filt Rate 51; Glucose Random 225 mg/dL (60-115); Lipase 21 U/L (8-78); Potassium 4.3 mmol/L (3.3-5.1); Sodium 138 mmol/L (135-145); Total Protein 6.8 g/dL (6.5-8.0)
[2022-10-16 21:05] LABS: Troponin-I High Sensitivity 7.6 ng/L (<3.5-35.0)
[2022-10-16 21:24] VITALS: BP 142/79; PULSE 128; RESP 26; TEMP 38; O2SAT 97
--- NOTE | 2022-10-16 21:43 | PC.NURSE ---
Notified Provider of low grade temp, awaiting orders. Will continue monitor.
[2022-10-16 22:03] LABS: Partial Thromboplastin Time 23.4 SEC (26.0-36.4)
[2022-10-16 22:16] LABS: Reflex Lactate? Lactic Acid Added
--- NOTE | 2022-10-16 22:35 | PC.NURSE ---
attempted a walk pt, unsuccessful, pt unable to walk without knees buckling . pt given food and drink per provider. Will continue to monitor.
[2022-10-16] MEDS: Acetaminophen 325 MG TABLET 975 MG PO (22:52)
[2022-10-16] MEDS: ondansetron HCL 4 MG/2 ML VIAL IVPUSH (22:52)
[2022-10-16 22:53] LABS: Appearance Urine Clear; Color Urine Dark Yellow; Glucose Urine UA 500 mg/dL (Negative); Leukocyte Esterase Urine Negative (Negative); Nitrite Urine Negative (Negative); PH 5.5 (5.0-9.0); Specific Gravity - Urine >= 1.030 (1.005-1.025); UMIC TRIGGER UACC YES; Urine Blood Negative (Negative); Urine Ketones 15 mg/dL (Negative); Urine Protein 30 (1+) mg/dL (Neg-Trace)
--- NOTE | 2022-10-16 23:01 | PC.NURSE ---
pt medicated per Mar, Will continue to monitor.
[2022-10-16 23:05] LABS: Bacteria Urine None Seen (None Seen); Hyaline Casts Urine 0-2 /LPF (0-2); RBC Urine 0-2 /HPF (0-2); Squamous Epithelial Cell Urine 0-2 /HPF (0-2); WBC Urine 0-5 /HPF (0-5)
[2022-10-16 23:47] VITALS: BP 137/70; PULSE 133; RESP 20; TEMP 37.7; O2SAT 94
[2022-10-16 23:59] LABS: ~Lactic Acid-LAB USE ONLY 1.9 mmol/L (0.5-2.0)
[2022-10-17] VITALS (9 sets, daily range): BP systolic 129–155; BP diastolic 69–85; PULSE 110–121; RESP 16–22; TEMP 36.2–38.3; O2SAT 94–97
[2022-10-17 01:16] LABS: Glucose, Whole Blood 241 mg/dL (60-115)
--- NOTE | 2022-10-17 01:19 | PC.NURSE ---
Addendum entered by Katharina Zimmer 10/17/22 01:21: pt had an LP, vital sign stable, tolerated well. Original Note: pt sleeping at this time no sign of distress, will continue to monitor
[2022-10-17 01:28] LABS: Appearance CSF CLEAR; CSF Tube # 2; CSF Volume 1.5 ML; Color CSF COLORLESS; Red Blood Cell CSF 15 MM*3; White Blood Cell CSF 5 MM*3
[2022-10-17 01:30] LABS: CSF Appearance Clear, Colorless; CSF Tube # 3
--- NOTE | 2022-10-17 01:38 | PC.NURSE ---
pt laying flat at time, no sign of distress will continue to monitor.
[2022-10-17 01:42] LABS: Glucose CSF 127 mg/dL; Total Protein CSF 65.1 mg/dL (15-45)
[2022-10-17 02:04] LABS: Neutrophils CSF 1 %
[2022-10-17 02:05] LABS: CSF Monos 12 %; Lymphocytes CSF 19 %
--- NOTE | 2022-10-17 02:07 | PC.NURSE ---
pt poc 241, no coverage at this time per provider, will continue to monitor.
[2022-10-17] MEDS: Lactated Ringers 1,000 ML 150 ML IVCONT ×2 (02:46→08:31)
--- NOTE | 2022-10-17 02:57 | P.HPHOSP_ITS ---
History of Present Illness Date of Service: 10/17/22 Chief Complaint: Weakness This is a 67-year-old male with pertinent history of essential hypertension, mixed hyperlipidemia, jtb-sygohop-rwabamywe diabetes mellitus, gastroesophageal reflux disease, unspecified tachycardia syndrome on diltiazem who presents to [facility] emergency department evaluation of nausea/vomiting/weakness. Patient states she got sick at 02:00 when he had multiple episodes of nonbloody emesis and nausea. Patient was unable to eat or drink prior to presentation due to nausea. He was also feeling weak. No fevers or chills. Patient states he urinated in bed as he was too weak to get out of bed. Patient's and daughter tried to stand him but he was too weak and hence they decided to present to the ER. No chest discomfort, palpitations, shortness of breath, abdominal pain, changes in urinary or bowel habits. In the emergency department, when nurses were trying to make him stand, his legs gave out due to weakness. He underwent spinal tap in the ER Review of Systems Constitutional: Constitutional: Reports fatigue, Reports lethargy and Reports malaise Cardiovascular: Cardiovascular: Reports no additional cardiovascular complaints Respiratory: Respiratory: Reports no additional respiratory complaints Gastrointestinal: Gastrointestinal: Reports nausea and Reports vomiting Genitourinary: Genitourinary: Reports no additional male genitourinary complaints Endocrine: Endocrine: Reports fatigue [facility] Medical History Arthritis Asthma Back pain COVID-19 vaccine administered COVID-19 virus antibody negative Degenerative disc disease Diabetes Elevated cholesterol GERD (gastroesophageal reflux disease) History of pericarditis HTN (hypertension) Lab test negative for COVID-19 virus Primary osteoarthritis of right knee Scoliosis Sleep apnea Pertinent family history: No family history of CAD Surgical History H/O total hip arthroplasty History of total right knee replacement Hx of colonoscopy Social History Are you a primary reproductive healthcare assistant to a significant other at home: No Do you presently have visiting nurse or other home services: No Alcohol intake: current Alcohol intake frequency: a few times a month Alcohol type: beer Patient Tobacco Use Status: Former Tobacco user Quit Date: Age 22 Tobacco use type: Cigarette Second Hand Smoke Exposure: No Advance Directives: No Advance Directives Information Provided: No Nutrition Risks: Acute nausea or vomiting x1 week service: No Current occupational status: employed 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 Allergies Allergy/AdvReac Type Severity Reaction Status Date / Time No Known Allergies Allergy Verified 09/21/21 14:14 [No Known Allergies*] Active Medications: Current Medications Lactated Ringer's (Lr) 1,000 mls @ 150 mls/hr IVCONT .[id number] SHAHLA Last Admin: 10/17/22 02:46 Dose: 150 mls/hr Home Medications Medication Instructions Recorded Confirmed Last Taken Type losartan 25 mg tablet 25 mg PO DAILY 04/18/20 09/21/21 04/21/20 History albuterol 90 mcg/actuation aerosol 2 mcg inhalation Q4-6H PRN 04/19/20 09/21/21 Unknown History inhaler Shortness Of Breath diltiazem HCl 240 mg 1 cap PO QAM 04/19/20 09/21/21 01/24/21 05:30 History capsule,extended release 24 hr metformin 500 mg tablet 1,000 mg PO QAM 04/19/20 09/21/21 04/22/20 History metformin 500 mg tablet 500 mg PO QPM 04/19/20 09/21/21 04/22/20 History rosuvastatin 10 mg tablet 10 mg PO BEDTIME 06/28/20 09/21/21 Unknown History glipizide 2.5 mg tablet, extended 2.5 mg PO DAILY 09/21/21 09/21/21 Unknown History release 24 hr Physical Exam Vital Signs and Narrative: Vital Signs: Last Vital Signs Temp 99.9 F 10/16/22 23:47 Pulse 119 H 10/17/22 01:37 Resp 16 10/17/22 01:37 BP 129/69 10/17/22 01:37 Pulse Ox 94 10/17/22 01:37 O2 Del Method Room Air 10/17/22 01:37 BMI result Body Mass Index 34.8 Elderly male lying in bed in no distress Neck supple, no JVD Regular rate and rhythm, S1-S2 heard Regular breath sounds bilaterally, no wheezing or crackles appreciated Abdomen soft nontender, no guarding, no rigidity Patient is awake, alert and oriented to self, place, time and person ; strength 5/5 in bilateral upper and lower extremity, no facial droop, no nystagmus, tongue and uvula midline Psych: Normal mood No pedal edema Results Labs 10/16/22 20:11 10/16/22 20:11 Labs: Laboratory Results - last 24 hr 10/16/22 10/16/22 10/16/22 19:57 19:57 20:11 MCV 86.9 MCH 28.9 MCHC 33.3 RDW 13.7 Plt Count 214 MPV 10.6 Immature Gran % (Auto) 0.2 Neut % (Auto) 93.2 H Lymph % (Auto) 2.9 L [place] % (Auto) 3.4 Eos % (Auto) 0.0 Baso % (Auto) 0.3 Lymph # (Auto) 0.3 L [place] # (Auto) 0.3 Eos # (Auto) 0.0 Baso # (Auto) 0.0 Abs Immat Gran (auto) 0.02 Absolute Neuts (auto) 8.0 Absolute Nucleated RBC 0.000 Nucleated RBC % (auto) 0.0 Smear Tech's Comments VERIFIED APTT Anion Gap Estim Creat Clear Calc Estimated GFR POC Glucose Random Glucose Lactic Acid Lactic Acid F/U @ 2Hr Calcium Total Bilirubin AST ALT Alkaline Phosphatase Total Creatine Kinase Troponin I High Sens Total Protein Albumin Lipase Urine Color Urine Appearance Urine pH Ur Specific [place] Urine Protein Urine Glucose (UA) Urine Ketones Urine Blood Urine Nitrite Ur Leukocyte Esterase Urine RBC Urine WBC Ur Squamous Epith Cells Urine Bacteria Hyaline Casts CSF Tube Number CSF Volume CSF Appearance CSF Color CSF WBC CSF RBC CSF Neutrophils CSF Lymphocytes CSF Monocytes % CSF Appearance (b) CSF Glucose CSF Total Protein COVID-19 (EDDIE) Negative COVID-19 Clin Com See Note Influenza Type A (KIANNA) Negative Influenza Type B (KIANNA) Negative Influenza A & B Note See Note 10/16/22 10/16/22 10/16/22 20:11 20:11 20:11 MCV MCH MCHC RDW Plt Count MPV Immature Gran % (Auto) Neut % (Auto) Lymph % (Auto) [place] % (Auto) Eos % (Auto) Baso % (Auto) Lymph # (Auto) [place] # (Auto) Eos # (Auto) Baso # (Auto) Abs Immat Gran (auto) Absolute Neuts (auto) Absolute Nucleated RBC Nucleated RBC % (auto) Smear Tech's Comments APTT 23.4 L Anion Gap 18 Estim Creat Clear Calc 66.9 Estimated GFR 51 POC Glucose Random Glucose 225 H Lactic Acid Lactic Acid F/U @ 2Hr Calcium 8.2 L D Total Bilirubin 0.6 AST 24 ALT 40 Alkaline Phosphatase 66 Total Creatine Kinase 111 Troponin I High Sens 7.6 Total Protein 6.8 Albumin 3.9 Lipase 21 Urine Color Urine Appearance Urine pH Ur Specific [place] Urine Protein Urine Glucose (UA) Urine Ketones Urine Blood Urine Nitrite Ur Leukocyte Esterase Urine RBC Urine WBC Ur Squamous Epith Cells Urine Bacteria Hyaline Casts CSF Tube Number CSF Volume CSF Appearance CSF Color CSF WBC CSF RBC CSF Neutrophils CSF Lymphocytes CSF Monocytes % CSF Appearance (b) CSF Glucose CSF Total Protein COVID-19 (EDDIE) COVID-19 Clin Com Influenza Type A (KIANNA) Influenza Type B (KIANNA) Influenza A & B Note 10/16/22 10/16/22 10/16/22 20:11 22:45 23:43 MCV MCH MCHC RDW Plt Count MPV Immature Gran % (Auto) Neut % (Auto) Lymph % (Auto) [place] % (Auto) Eos % (Auto) Baso % (Auto) Lymph # (Auto) [place] # (Auto) Eos # (Auto) Baso # (Auto) Abs Immat Gran (auto) Absolute Neuts (auto) Absolute Nucleated RBC Nucleated RBC % (auto) Smear Tech's Comments APTT Anion Gap Estim Creat Clear Calc Estimated GFR POC Glucose Random Glucose Lactic Acid 4.0 H* Lactic Acid F/U @ 2Hr 1.9 Calcium Total Bilirubin AST ALT Alkaline Phosphatase Total Creatine Kinase Troponin I High Sens Total Protein Albumin Lipase Urine Color Dark Yellow Urine Appearance Clear Urine pH 5.5 Ur Specific Holt >= 1.030 H Urine Protein 30 (1+) H Urine Glucose (UA) 500 H Urine Ketones 15 Urine Blood Negative Urine Nitrite Negative Ur Leukocyte Esterase Negative Urine RBC 0-2 Urine WBC 0-5 Ur Squamous Epith Cells 0-2 Urine Bacteria None Seen Hyaline Casts 0-2 CSF Tube Number CSF Volume CSF Appearance CSF Color CSF WBC CSF RBC CSF Neutrophils CSF Lymphocytes CSF Monocytes % CSF Appearance (b) CSF Glucose CSF Total Protein COVID-19 (EDDIE) COVID-19 Clin Com Influenza Type A (KIANNA) Influenza Type B (KIANNA) Influenza A & B Note 10/17/22 10/17/22 10/17/22 01:09 01:09 01:10 MCV MCH MCHC RDW Plt Count MPV Immature Gran % (Auto) Neut % (Auto) Lymph % (Auto) [place] % (Auto) Eos % (Auto) Baso % (Auto) Lymph # (Auto) [place] # (Auto) Eos # (Auto) Baso # (Auto) Abs Immat Gran (auto) Absolute Neuts (auto) Absolute Nucleated RBC Nucleated RBC % (auto) Smear Tech's Comments APTT Anion Gap Estim Creat Clear Calc Estimated GFR POC Glucose 241 H Random Glucose Lactic Acid Lactic Acid F/U @ 2Hr Calcium Total Bilirubin AST ALT Alkaline Phosphatase Total Creatine Kinase Troponin I High Sens Total Protein Albumin Lipase Urine Color Urine Appearance Urine pH Ur Specific [place] Urine Protein Urine Glucose (UA) Urine Ketones Urine Blood Urine Nitrite Ur Leukocyte Esterase Urine RBC Urine WBC Ur Squamous Epith Cells Urine Bacteria Hyaline Casts CSF Tube Number 3 2 CSF Volume 1.5 CSF Appearance CLEAR CSF Color COLORLESS CSF WBC 5 CSF RBC 15 CSF Neutrophils 1 CSF Lymphocytes 19 CSF Monocytes % 12 CSF Appearance (b) Clear, Colorless CSF Glucose 127 CSF Total Protein 65.1 H COVID-19 (EDDIE) COVID-19 Clin Com Influenza Type A (KIANNA) Influenza Type B (KIANNA) Influenza A & B Note Imaging Radiologist's Impressions: Impressions Chest X-Ray 10/16/22 19:41 IMPRESSION: No acute disease. Head CT 10/16/22 23:35 IMPRESSION: No acute intracranial pathology. Chronic volume loss with small vessel ischemic change. Assessment and Plan (1) Viral syndrome: Status: Acute (2) Acute dehydration: Status: Acute Plan This is a 67-year-old male with pertinent history of essential hypertension, mixed hyperlipidemia, tyz-iltriyx-fjzubdadc diabetes mellitus, gastroesophageal reflux disease, unspecified tachycardia syndrome on diltiazem who presents to the emergency department evaluation of nausea/vomiting/weakness. #. Nausea/vomiting, likely viral syndrome: Symptomatic treatment. Defer antibiotics. Viral and GI panel pending #. Weakness ?in the setting of above: Consulted physical therapy to evaluate and treat. Resuscitated with IV crystalloids in the ER. Spinal tap done, CSF studies pending. If symptoms persist, consider neurology consult. Obtained TSH #. Acute lactic acidosis due to dehydration. Also on metformin. No sepsis. Resolved with fluid resuscitation #. Unspecified tachycardia syndrome: On diltiazem #. Essential hypertension: Continue home antihypertensives #. Szm-bmorgaa-saykvgodi diabetes mellitus with hyperglycemia: Hold home metformin and initiate Accu-Cheks with sliding scale insulin #. GERD: On PPI Med rec pending DVT prophylaxis: Lovenox 40 mg daily Cardiac diet Full code Time Spent With Patient Time: Total time managing care of this patient today ____ minutes. Quality Stroke Does the patient have a stroke diagnosis?: No VTE Prior VTE?: No VTE Risk Level:: Medical - moderate - high VTE Device Contraindication: Treatment Not Indicated VTE Drug Contraindication: N/A - Med Ordered
[2022-10-17 03:02] LABS: Cryptococcus neoformans/gattii Not Detected (Not Detect.); Enterovirus Not Detected (Not Detect.); Escherichia coli K1 Not Detected (Not Detect.); Haemophilus influenzae Not Detected (Not Detect.); Herpes simplex virus 1 Not Detected (Not Detect.); Herpes simplex virus 2 Not Detected (Not Detect.); Human herpesvirus 6 Not Detected (Not Detect.); Human parechovirus Not Detected (Not Detect.); Listeria monocytogenes Not Detected (Not Detect.)
[2022-10-17 03:03] LABS: Neisseria meningitidis Not Detected (Not Detect.); Streptococcus agalactiae Not Detected (Not Detect.); Streptococcus pneumoniae Not Detected (Not Detect.); Varicella zoster virus Not Detected (Not Detect.)
--- NOTE | 2022-10-17 03:12 | PC.NURSE ---
Nuero intact, pt cms intact, pedal pulses intact. lp site intact. no drainage, no headache. Will continue to monitor.
--- NOTE | 2022-10-17 04:13 | PC.NURSE ---
Report given to SANTI Gregg, pt being transport by PCT on monitor.
--- NOTE | 2022-10-17 07:31 | PM.EVENT ---
Event Note Date of Service: 10/17/22 Event Note: Pt seen and examined on same day of admission. Vital reviewed, Neuro exam non focal. He feels overall better 67-year-old male with pertinent history of essential hypertension, mixed hyperlipidemia, jlx-blzljeo-jegnskqlx diabetes mellitus, gastroesophageal reflux disease, unspecified tachycardia syndrome on diltiazem who presents to the emergency department evaluation of nausea/vomiting/weakness. #.? Nausea/vomiting, likely viral syndrome:? Symptomatic treatment.? Defer antibiotics.? Viral and GI panel pending #.? Weakness ?in the setting of above: physical therapy to evaluate and treat.? Resuscitated with IV crystalloids in the ER.? CSF study high protein o/w normal.? If symptoms persist, consider neurology consult.? #.? Acute lactic acidosis due to dehydration.? Also on metformin.? No sepsis.? Resolved with fluid resuscitation #.? Unspecified tachycardia syndrome: continue diltiazem #.? Essential hypertension: Continue home antihypertensives #.? Pea-xdtwfci-vspullqcs diabetes mellitus with hyperglycemia: SSI, metformin on hold for now #.? GERD: On PPI Time Spent With Patient Time: Total time managing care of this patient today ____ minutes.
[2022-10-17 07:33] LABS: Glucose, Whole Blood 185 mg/dL (60-115)
[2022-10-17] MEDS: Enoxaparin Sodium 40 MG/0.4 ML SYRINGE SUBCUT (08:09)
[2022-10-17] MEDS: Insulin Lispro 100 UNIT/ML 3 ML VIAL SUBCUT ×3 (08:11→17:01)
[2022-10-17] MEDS: 0.9 % Sodium Chloride Flush 3 ML SYRINGE IVFLUSH ×2 (08:11→17:02)
--- NOTE | 2022-10-17 08:20 | MHC.CM.PN ---
CM met with Patient vat bedside and addressed ODELL with him, providing him with the original and placing a copy on the chart. Patient lives in a house with his /HCP and adult Daughter and he required no services nor DME [employer]. Home/self care is the goal and CM has initiated and will follow for dc planning. Patient is mary baker'italo and his PCP is Dr. Franklin Baldwin.
--- NOTE | 2022-10-17 08:37 | PHA.MEDREC ---
Pharmacy Consult ? Medication Reconciliation Pharmacy has completed the medication reconciliation. Patient reported all medications. Shruthi Ware, ManuelD
[2022-10-17 09:46] LABS: Adenovirus PCR Not Detected (Not Detect.); Bordetella parapertussis PCR Not Detected (Not Detect.); Bordetella pertussis PCR Not Detected (Not Detect.); Chlamydia pneumoniae PCR Not Detected (Not Detect.); Coronavirus 229E PCR Not Detected (Not Detect.); Coronavirus HKU1 PCR Not Detected (Not Detect.); Coronavirus NL63 PCR Not Detected (Not Detect.); Coronavirus OC43 PCR Not Detected (Not Detect.); Human metapneumovirus PCR Not Detected (Not Detect.); Influenza A PCR Not Detected (Not Detect.); Influenza B PCR Not Detected (Not Detect.); Mycoplasma pneumoniae PCR Not Detected (Not Detect.); Parainfluenza 1 PCR Not Detected (Not Detect.); Parainfluenza 2 PCR Not Detected (Not Detect.); Parainfluenza 3 PCR Not Detected (Not Detect.); Parainfluenza 4 PCR Not Detected (Not Detect.); RSV PCR Not Detected (Not Detect.); Rhino/Enterovirus PCR Not Detected (Not Detect.); SARS-CoV-2 PCR Not Detected (Not Detect.)
[2022-10-17 11:28] LABS: Glucose, Whole Blood 233 mg/dL (60-115)
--- NOTE | 2022-10-17 12:18 | PC.NURSE ---
Pt alert and oriented x4. Denies pain or discomfort. Pt ambulated with minimal assist OOB. At baseline, pt ambulates indepedently. Pt ambulated in the hallway with no dizziness or light headedness.
[2022-10-17] MEDS: Acetaminophen 325 MG TABLET 650 MG PO (15:14)
[2022-10-17 15:36] LABS: Glucose, Whole Blood 174 mg/dL (60-115)
[2022-10-17] MEDS: metFORMIN HCl 500 MG TABLET PO (17:02)
[2022-10-17 20:15] LABS: Glucose, Whole Blood 153 mg/dL (60-115)
--- NOTE | 2022-10-17 22:49 | PC.NURSE ---
oral temp 101.0 this afternoon , HR 110' at rest and 120's with activity, tolerates po intake ,no n/v, reported that he is still having loose stools . Made DR Yun aware re fever , pt medicated with Acetaminophen 650 mg PO with good effect.
[2022-10-18] VITALS: BP 139/65; PULSE 102; RESP 20; TEMP 37.2; O2SAT 95
[2022-10-18] MEDS: 0.9 % Sodium Chloride Flush 3 ML SYRINGE IVFLUSH ×2 (01:18→08:03)
[2022-10-18 04:00] VITALS: BP 157/86; PULSE 95; RESP 20; TEMP 36.2; O2SAT 96
[2022-10-18 07:11] LABS: Glucose, Whole Blood 147 mg/dL (60-115)
[2022-10-18 07:14] VITALS: BP 143/69; PULSE 100; RESP 20; TEMP 36.3; O2SAT 93
[2022-10-18] MEDS: Omeprazole 20 MG CAPSULE.DR PO (07:22)
[2022-10-18] MEDS: Enoxaparin Sodium 40 MG/0.4 ML SYRINGE SUBCUT (08:02)
[2022-10-18] MEDS: glipiZIDE XL 2.5 MG TAB.ER.24 PO (08:03)
[2022-10-18] MEDS: dilTIAZem HCL CD 240 MG CAP.ER.DEG PO (08:03)
[2022-10-18] MEDS: Losartan Potassium 25 MG TABLET PO (08:03)
[2022-10-18] MEDS: metFORMIN HCl 1,000 MG TABLET 1000 MG PO (08:03)
--- NOTE | 2022-10-18 10:24 | PM.DS ---
DS: Providers Provider Date of Service: 10/18/22 Date of admission: 10/17/22 04:10 Primary care physician: Franklin Baldwin MD DS: Diagnosis Discharge Diagnosis (1) Viral syndrome: Status: Acute (2) Acute dehydration: Status: Acute DS: Summary Hospital Course Hospital Course: Chief Complaint: Weakness This is a 67-year-old male with pertinent history of essential hypertension, mixed hyperlipidemia, vci-saokkub-viurbduta diabetes mellitus, gastroesophageal reflux disease, unspecified tachycardia syndrome on diltiazem who presents to the emergency department evaluation of nausea/vomiting/weakness.? Patient states she got sick at 02:00 when he had multiple episodes of nonbloody emesis and nausea.? Patient was unable to eat or drink prior to presentation due to nausea.? He was also feeling weak.? No fevers or chills.? Patient states he urinated in bed as he was too weak to get out of bed.? Patient's and daughter tried to stand him but he was too weak and hence they decided to present to the ER.? No chest discomfort, palpitations, shortness of breath, abdominal pain, changes in urinary or bowel habits. In the emergency department, when nurses were trying to make him stand, his legs gave out due to weakness.? He underwent spinal tap in the ER Hospital course: Patient presented Nausea/vomiting, initially no fever although he had a single episode of fever later, labs work including CBC, BMP were unremarkable, CT head no acute finding. He was clinically dehydrated and had no focal neuro exam showed no acute finding. He had an LP which was unremarkable other than protein of 67 of unclear significane. Viral testing negative. He presentation is consistent with a viiral syndrome. His management consited of hydration and he made a rather rapid recovery, nausea, vomitting and diarrhea resolved. No fever. Exam unremarkable, he is up and ambulating on his own and would like to go, although GBS was raised due to mildly elevated CSF protein, overall picture doesn't fit, especially given the rapid recovery and therefore at this point I don't think further investiation is needed at this time. PT saw him and recommended home with services, but he says he is doesn't need it at this time. #.? Acute lactic acidosis due to dehydration.? Also on metformin.? No sepsis.? Resolved with fluid resuscitation #.? Unspecified tachycardia syndrome: continue diltiazem #.? Essential hypertension: Continue home antihypertensives #.? Web-qyyfukk-ilxpqrpqe diabetes mellitus with hyperglycemia:? SSI, metformin on hold for now #.? GERD: On PPI Time Spent with Patient Time attestation: Total time managing care of this patient today ____ minutes. Discharge coordination time: Greater than 30 minutes Quality: Safe Use of Opioids Does Pt have an Active Cancer Diagnosis on the Problem List?: No Quality: Stroke Does the patient have a stroke diagnosis?: No Physical Exam Vital Signs: Vital Signs: Last Vital Signs Temp 97.3 F 10/18/22 07:14 Pulse 100 10/18/22 07:14 Resp 20 10/18/22 07:14 BP 143/69 H 10/18/22 07:14 Pulse Ox 93 10/18/22 07:14 O2 Del Method Room Air 10/18/22 07:14 BMI result Body Mass Index 34.8 DS: Data Data Completed and Pending Completed studies during hospitalization [Text1]: Procedures Replacement of Right Knee Joint with Synthetic Substitute, Uncemented, Open Approach (08/29/20) Labs on day of discharge: Laboratory Results - last 24 hr 10/17/22 10/17/22 10/17/22 11:24 15:30 20:12 POC Glucose 233 H 174 H 153 H 10/18/22 07:08 POC Glucose 147 H Preliminary micro results at discharge 10/17/22 01:09 CSF Culture - Preliminary Cerebrospinal Fluid No growth after 1 day 10/16/22 20:12 Blood Culture - Preliminary Blood - Venous No growth after 24 hours. 10/16/22 05:44 Blood Culture - Preliminary Blood - Venous No growth after 24 hours. Discharge Plan Discharge Anticipated Discharge Date/Time: 10/18/22 10:14 Patient Disposition: Home, Self-Care Discharge Diagnosis: Viral Syndrome Referrals: Franklin Baldwin MD [Primary Care Provider] - 1 Week Discharge Medications: Continued losartan 25 mg tablet 25 mg PO DAILY metformin 500 mg Tablet 1,000 mg PO QAM metformin 500 mg Tablet 500 mg PO QPM diltiazem HCl 240 mg capsule,extended release 24hr 1 cap PO QAM rosuvastatin 10 mg tablet 10 mg PO BEDTIME omeprazole 20 mg capsule,delayed release(DR/EC) 1 cap PO DAILY 30 Days Qty: 0 0RF albuterol sulfate 90 mcg/actuation HFA aerosol inhaler 2 puff INHALATION Q4H acetaminophen 325 mg tablet 325 mg PO Q6H PRN (Reason: Pain) glipizide 2.5 mg tablet extended release 24 hr 2.5 mg PO DAILY Diet: Advance to usual diet Activity on Discharge: As tolerated Stand Alone Forms: Patient Portal Discharge page Care Plan Goals: Full recovery Health Concerns: Viral Syndrome, dehydration, Nausea and vomitting Plan of Treatment: Rest, drink plenty of fluid, resume all medication as usual and follow up with your Doctor in a week Assessment: as above
[2022-10-18 10:53] LABS: Glucose, Whole Blood 174 mg/dL (60-115)
--- NOTE | 2022-10-18 11:15 | MHC.CM.PN ---
Patient has been medically cleared for dc to home today, self care.
--- NOTE | 2022-10-18 12:34 | P.CNNE_ITS ---
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 Patient states she got sick at 02:00 when he had multiple episodes of nonbloody emesis and nausea.??He also complained of generalized weakness and a workup was done for Guillain-[place] syndrome including a lumbar puncture and this consultation was requested. When I saw him, he was ready to be discharged sitting in a chair stating that he was feeling fine. Review of Systems Review of Systems: Recent nausea and vomiting. [facility] Past Medical History Medical History Arthritis Asthma Back pain COVID-19 vaccine administered COVID-19 virus antibody negative Degenerative disc disease Diabetes Elevated cholesterol GERD (gastroesophageal reflux disease) History of pericarditis HTN (hypertension) Lab test negative for COVID-19 virus Primary osteoarthritis of right knee Scoliosis Sleep apnea Surgical History Surgical History H/O total hip arthroplasty History of total right knee replacement Hx of colonoscopy Social History Social History Household Members: Spouse and Children Housing: House Are you a primary healthcare architect to a significant other at home: No Do you presently have visiting nurse or other home services: No Alcohol intake: current Alcohol intake frequency: a few times a month Alcohol type: beer Patient Tobacco Use Status: Former Tobacco user Quit Date: Age 22 Tobacco use type: Cigarette Second Hand Smoke Exposure: No Use of substances other than those prescribed or required for medical reasons: No Currently Displaying Signs/Symptoms of Drug Intoxication Withdrawal: No Have you been hit, kicked, punched, or otherwise hurt by someone within the past year? 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 Allergies Allergy/AdvReac Type Severity Reaction Status Date / Time No Known Allergies Allergy Verified 09/21/21 14:14 [No Known Allergies*] Home Medications Medication Instructions Recorded Confirmed Last Taken Type losartan 25 mg tablet 25 mg PO DAILY 04/18/20 10/17/22 10/15/22 History diltiazem HCl 240 mg 1 cap PO QAM 04/19/20 10/17/22 10/15/22 History capsule,extended release 24 hr metformin 500 mg tablet 1,000 mg PO QAM 04/19/20 10/17/22 10/15/22 History metformin 500 mg tablet 500 mg PO QPM 04/19/20 10/17/22 10/15/22 History rosuvastatin 10 mg tablet 10 mg PO BEDTIME 06/28/20 10/17/22 10/15/22 History glipizide 2.5 mg tablet, extended 2.5 mg PO DAILY 09/21/21 10/17/22 10/15/22 History release 24 hr acetaminophen 325 mg tablet 325 mg PO Q6H PRN Pain 10/17/22 10/17/22 Unknown History albuterol sulfate 90 mcg/actuation 2 puff inhalation Q4H 10/17/22 10/17/22 Unknown History aerosol inhaler Physical Exam Vital Signs: Vital Signs: Last Vital Signs Temp 97.3 F 10/18/22 07:14 Pulse 100 10/18/22 07:14 Resp 20 10/18/22 07:14 BP 143/69 H 10/18/22 07:14 Pulse Ox 93 10/18/22 07:14 O2 Del Method Room Air 10/18/22 07:14 BMI result Body Mass Index 34.8 Neuro: Other: He is alert and awake with normal spontaneity of speech fluency comprehension and affect. Deep tendon reflexes are trace with no difficulty walking on toes and heels. Romberg is negative. Face is symmetrical. Visual baker are full. Arm strength is full. Results Labs 10/16/22 20:11 10/16/22 20:11 Labs: CSF protein was 65. CT scan of brain revealed mild diffuse atrophy and mild microvascular ischemic changes. Microbiology Microbiology Results: Microbiology 10/17/22 01:09 Cerebrospinal Fluid Gram Stain - Final 10/17/22 01:09 Cerebrospinal Fluid CSF Examination - Final 10/17/22 01:09 Cerebrospinal Fluid Fluid Description - Final 10/17/22 01:09 Cerebrospinal Fluid CSF Culture - Preliminary No growth after 1 day 10/16/22 20:12 Blood - Venous Blood Culture - Preliminary No growth after 24 hours. 10/16/22 05:44 Blood - Venous Blood Culture - Preliminary No growth after 24 hours. Assessment and Plan (1) Viral syndrome: Status: Acute 67 years old man with diabetes who probably suffered from a viral syndrome resulting also in generalized weakness especially in legs. Overall evaluation was not typical of Guillain-[place] syndrome and he was already better compared to his presentation. At this time my recommendation is to treat him symptomatically and not consider diagnosis of Guillain-[place] syndrome. He can have outpatient EMG nerve conduction study for further evaluation Time Spent With Patient Time: Total time managing care of this patient today ____ minutes. Procedures Date of Service Date of Service: 10/18/22
== END 2022-10-18 11:26 | disposition home or self-care (01) ==
LOC: HO.ED 10-17 02:38 → HO.IMC 10-17 04:41
PROVIDERS: Admitting Provider Student in an Organized Health Care Education/Training Program; Emergency Provider Emergency Medicine Emergency Medical Services; PCP Internal Medicine; Visit Provider Internal Medicine
DX: E87.21 Acute metabolic acidosis (principal); E86.0 Dehydration; B34.9 Viral infection, unspecified; R53.1 Weakness; R11.2 Nausea with vomiting, unspecified; I10 Essential (primary) hypertension; E78.2 Mixed hyperlipidemia; E11.9 Type 2 diabetes mellitus without complications; K21.9 Gastro-esophageal reflux disease without esophagitis; R00.0 Tachycardia, unspecified; Z79.899 Other long term (current) drug therapy; Z79.01 Long term (current) use of anticoagulants; Z20.822 Contact with and (suspected) exposure to COVID-19; Z96.651 Presence of right artificial knee joint
CPT/HCPCS: 36415; 70450; 71046; 80053; 81001; 82550; 82945; 82947; 83605; 83690; 84157; 84484; 85025; 85730; 87015; 87040; 87070; 87205; 87483; 87502; 87633; 87635; 89051; 93005; 96361; 96372; 96374; 97162; 99222; 99285; J1650; J2405

== ENCOUNTER 2022-10-30 08:17 | Outpatient (REF) | payer MEDICARE, SELFPAY ==
[2022-10-30 10:36] LABS: MANUAL DIFF FLAG NO
[2022-10-30 10:42] LABS: Basophils Absolute Auto 0.1 X10*3/uL (0.0-0.2); Basophils Percent Auto 0.8 % (0-2); Eosinophils Absolute Auto 0.3 X10*3/uL (0.0-0.4); Eosinophils Percent Auto 3.8 % (0-4); Hematocrit 43.9 % (42.0-52.0); Hemoglobin 14.4 g/dl (14.0-18.0); Imm Gran Abs Auto 0.02 X10*3/uL (0.00-0.03); Imm Gran Pct Auto 0.3 % (0.0-0.4); Lymphocytes Absolute Auto 1.9 X10*3/uL (1.2-4.9); Lymphocytes Percent Auto 28.2 % (20-40); Mean Corpuscular HGB Conc 32.8 g/dl (31.0-36.0); Mean Corpuscular Hemoglobin 28.5 pg (27.0-33.0); Mean Corpuscular Volume 86.9 fL (80.0-98.0); Mean Platelet Volume 10.9 fL (9.4-12.4); Monocytes Absolute Auto 0.6 X10*3/uL (0.1-1.2); Monocytes Percent Auto 9.4 % (2-11); Neutrophils Absolute Auto 3.8 x10*3/uL (2.0-8.3); Neutrophils Percent Auto 57.5 % (45-73); Platelet Count 295 X10*3/uL (160-400); Red Blood Count 5.05 X10*6/uL (4.60-5.80); Red Cell Distribution Width 13.5 % (11.0-16.0); White Blood Count 6.6 X10*3/uL (4.8-10.8)
[2022-10-30 10:50] LABS: Estimated Average Glucose 177 mg/dL; Hemoglobin A1c % 7.8 %
[2022-10-30 11:21] LABS: Alanine Aminotransferase 69 U/L (0-40); Albumin Level 4.3 g/dL (3.5-5.0); Alkaline Phosphatase 72 U/L (39-117); Anion Gap 15 (12-20); Aspartate Amino Transferase 26 U/L (5-37); Bilirubin Total 0.6 mg/dL (0.0-1.0); Blood Urea Nitrogen 20 mg/dL (9-16); Calcium 9.4 mg/dL (8.4-10.2); Carbon Dioxide 24 mmol/L (22-29); Chloride 107 mmol/L (96-108); Estimated Glomerular Filt Rate > 60; Glucose Random 170 mg/dL (60-115); Lipase 44 U/L (8-78); Magnesium 1.8 mg/dL (1.6-2.6); Potassium 4.8 mmol/L (3.3-5.1); Sodium 141 mmol/L (135-145); Total Protein 7.2 g/dL (6.5-8.0)
[2022-10-30 11:33] LABS: Thyroid Stimulating Hormone 1.37 uIU/mL (0.32-4.0); Vitamin B12 618 pg/mL (200-900)
== END 2022-10-30 08:18 | disposition home or self-care (01) ==
LOC: HO.WFDLDS 08:17
PROVIDERS: Visit Provider Internal Medicine
DX: I10 Essential (primary) hypertension (principal); E11.9 Type 2 diabetes mellitus without complications; R53.1 Weakness; Z98.890 Other specified postprocedural states
CPT/HCPCS: 36415; 80053; 82607; 83036; 83690; 83735; 84443; 85025; 86140

== ENCOUNTER 2023-04-10 09:52 | Outpatient (REF) | payer MEDICARE, SELFPAY ==
[2023-04-10 11:58] LABS: MANUAL DIFF FLAG NO
[2023-04-10 12:05] LABS: Basophils Percent Auto 0.5 % (0-2); Eosinophils Absolute Auto 0.3 X10*3/uL (0.0-0.4); Eosinophils Percent Auto 4.2 % (0-4); Hematocrit 42.6 % (42.0-52.0); Hemoglobin 14.5 g/dl (14.0-18.0); Imm Gran Abs Auto 0.01 X10*3/uL (0.00-0.03); Imm Gran Pct Auto 0.1 % (0.0-0.4); Lymphocytes Absolute Auto 1.9 X10*3/uL (1.2-4.9); Lymphocytes Percent Auto 24.5 % (20-40); Mean Corpuscular Hemoglobin 29.4 pg (27.0-33.0); Mean Corpuscular Volume 86.2 fL (80.0-98.0); Mean Platelet Volume 10.9 fL (9.4-12.4); Monocytes Absolute Auto 0.5 X10*3/uL (0.1-1.2); Monocytes Percent Auto 6.8 % (2-11); Neutrophils Percent Auto 63.9 % (45-73); Platelet Count 291 X10*3/uL (160-400); Red Blood Count 4.94 X10*6/uL (4.60-5.80); Red Cell Distribution Width 13.2 % (11.0-16.0); White Blood Count 7.8 X10*3/uL (4.8-10.8)
[2023-04-10 12:22] LABS: Estimated Average Glucose 166 mg/dL; Hemoglobin A1c % 7.4 % (<6.0)
[2023-04-10 13:17] LABS: Alanine Aminotransferase 37 U/L (0-40); Albumin Level 4.2 g/dL (3.5-5.0); Alkaline Phosphatase 71 U/L (39-117); Anion Gap 14 (12-20); Aspartate Amino Transferase 23 U/L (5-37); Bilirubin Total 0.5 mg/dL (0.0-1.0); Blood Urea Nitrogen 14 mg/dL (9-16); Calcium 9.5 mg/dL (8.4-10.2); Carbon Dioxide 22 mmol/L (22-29); Chloride 107 mmol/L (96-108); Estimated Glomerular Filt Rate > 60; Glucose Random 153 mg/dL (60-115); Potassium 4.2 mmol/L (3.3-5.1); Sodium 139 mmol/L (135-145); Total Protein 7.6 g/dL (6.5-8.0)
== END 2023-04-10 09:53 | disposition home or self-care (01) ==
LOC: HO.WFDLDS 09:52
PROVIDERS: Visit Provider Internal Medicine
DX: I10 Essential (primary) hypertension (principal); E11.9 Type 2 diabetes mellitus without complications; E78.00 Pure hypercholesterolemia, unspecified
CPT/HCPCS: 36415; 80053; 83036; 85025

== ENCOUNTER 2023-07-10 08:09 | Outpatient (REF) | payer MEDICARE, SELFPAY ==
[2023-07-10 11:20] LABS: MANUAL DIFF FLAG NO
[2023-07-10 11:36] LABS: Basophils Absolute Auto 0.1 X10*3/uL (0.0-0.2); Basophils Percent Auto 0.6 % (0-2); Eosinophils Absolute Auto 0.4 X10*3/uL (0.0-0.4); Eosinophils Percent Auto 4.5 % (0-4); Hematocrit 45.7 % (42.0-52.0); Hemoglobin 15.4 g/dl (14.0-18.0); Imm Gran Abs Auto 0.03 X10*3/uL (0.00-0.03); Imm Gran Pct Auto 0.3 % (0.0-0.4); Lymphocytes Percent Auto 22.5 % (20-40); Mean Corpuscular HGB Conc 33.7 g/dl (31.0-36.0); Mean Corpuscular Hemoglobin 28.9 pg (27.0-33.0); Mean Corpuscular Volume 85.9 fL (80.0-98.0); Mean Platelet Volume 11.1 fL (9.4-12.4); Monocytes Absolute Auto 0.6 X10*3/uL (0.1-1.2); Monocytes Percent Auto 7.1 % (2-11); Neutrophils Absolute Auto 5.8 x10*3/uL (2.0-8.3); Platelet Count 272 X10*3/uL (160-400); Red Blood Count 5.32 X10*6/uL (4.60-5.80); Red Cell Distribution Width 13.2 % (11.0-16.0); White Blood Count 8.9 X10*3/uL (4.8-10.8)
[2023-07-10 11:57] LABS: Estimated Average Glucose 171 mg/dL; Hemoglobin A1c % 7.6 % (<6.0)
[2023-07-10 12:06] LABS: Alanine Aminotransferase 36 U/L (0-40); Albumin Level 4.3 g/dL (3.5-5.0); Alkaline Phosphatase 79 U/L (39-117); Anion Gap 14 (12-20); Aspartate Amino Transferase 23 U/L (5-37); Bilirubin Total 0.4 mg/dL (0.0-1.0); Blood Urea Nitrogen 15 mg/dL (9-16); Calcium 9.8 mg/dL (8.4-10.2); Carbon Dioxide 24 mmol/L (22-29); Chloride 104 mmol/L (96-108); Cholesterol 161 mg/dL (<200); Estimated Glomerular Filt Rate > 60; Glucose Fasting 174 mg/dL (60-99); HDL Cholesterol 33 mg/dL (>40); LDL Cholesterol Calculated 80 mg/dL (<100); Potassium 4.4 mmol/L (3.3-5.1); Sodium 138 mmol/L (135-145); Total Protein 7.9 g/dL (6.5-8.0); Triglycerides 244 mg/dL (<150)
[2023-07-10 12:18] LABS: Creatinine Urine 126.97 mg/dL; Microalbum/Creatinine Ratio Ur 13.3 ug/mg cr (<30)
[2023-07-10 12:25] LABS: Prostate Specific Antigen Scr 0.86 ng/mL (<0.05-4.0)
== END 2023-07-10 08:10 | disposition home or self-care (01) ==
LOC: HO.WFDLDS 08:09
PROVIDERS: Visit Provider Internal Medicine
DX: E11.9 Type 2 diabetes mellitus without complications (principal); I10 Essential (primary) hypertension; E78.00 Pure hypercholesterolemia, unspecified; R35.1 Nocturia; K50.90 Crohn's disease, unspecified, without complications; Z12.5 Encounter for screening for malignant neoplasm of prostate
CPT/HCPCS: 36415; 80053; 80061; 82043; 82570; 83036; 84153; 85025

== ENCOUNTER 2024-01-21 08:22 | Outpatient (REF) | payer MEDICARE, SELFPAY ==
[2024-01-21 11:46] LABS: Anion Gap 16 (12-20); Blood Urea Nitrogen 20 mg/dL (9-16); Calcium 9.8 mg/dL (8.4-10.2); Carbon Dioxide 23 mmol/L (22-29); Chloride 104 mmol/L (96-108); Estimated Glomerular Filt Rate > 60; Glucose Random 166 mg/dL (60-115); Potassium 4.5 mmol/L (3.3-5.1); Sodium 138 mmol/L (135-145)
[2024-01-21 11:53] LABS: Estimated Average Glucose 171 mg/dL; Hemoglobin A1c % 7.6 % (<6.0)
== END 2024-01-21 08:23 | disposition home or self-care (01) ==
LOC: HO.WFDLDS 08:22
PROVIDERS: Visit Provider Internal Medicine
DX: E11.9 Type 2 diabetes mellitus without complications (principal); I10 Essential (primary) hypertension
CPT/HCPCS: 36415; 80048; 83036

== ENCOUNTER 2024-01-22 14:10 | Outpatient (REF) | payer MEDICARE, SELFPAY ==
[2024-01-22 14:50] LABS: Microalbum/Creatinine Ratio Ur 9.5 ug/mg cr (<30)
== END 2024-01-22 14:11 | disposition home or self-care (01) ==
LOC: HO.WFDLDS 14:10
PROVIDERS: Visit Provider Internal Medicine
DX: Z13.89 Encounter for screening for other disorder (principal)
CPT/HCPCS: 82043; 82570

== ENCOUNTER 2024-03-18 16:33 | Outpatient (REF) | payer MEDICARE, SELFPAY | END 2024-03-18 16:34 | disposition home or self-care (01) | LOC: HO.HOSX 16:33 | PROVIDERS: Visit Provider Physician Assistant | DX: Z13.89 Encounter for screening for other disorder (principal) ==

== ENCOUNTER 2024-03-19 09:06 | Outpatient (REF) | payer MEDICARE, SELFPAY ==
--- NOTE | ~2024-03-19 | XR_ITS ---
EXAMINATION: XR KNEE, BILATERAL CLINICAL INFORMATION: Bilateral knee pain COMPARISON: 09/21/2021 TECHNIQUE: AP standing view both knees. Lateral and sunrise views of the right knee. FINDINGS: The right total knee arthroplasty components are in the usual position and alignment without evidence of loosening or fracture. AP view of the left knee demonstrates medial compartment narrowing. XR/XR knee RT 3V IMPRESSION: 1. Satisfactory appearance of the right total knee arthroplasty. 2. Medial compartment narrowing of the left knee. Electronically signed by: Dk Cotton MD 03/25/2024 10:14 AM EDT
--- NOTE | ~2024-03-19 | XR_ITS ---
EXAMINATION: XR KNEE, BILATERAL CLINICAL INFORMATION: Bilateral knee pain COMPARISON: 09/21/2021 TECHNIQUE: AP standing view both knees. Lateral and sunrise views of the right knee. FINDINGS: The right total knee arthroplasty components are in the usual position and alignment without evidence of loosening or fracture. AP view of the left knee demonstrates medial compartment narrowing. XR/XR knee LT 1V IMPRESSION: 1. Satisfactory appearance of the right total knee arthroplasty. 2. Medial compartment narrowing of the left knee. Electronically signed by: Dk Cotton MD 03/25/2024 10:14 AM EDT
== END 2024-03-19 09:07 | disposition home or self-care (01) ==
LOC: HO.HOSX 09:06
PROVIDERS: PCP Internal Medicine; Visit Provider Physician Assistant
DX: M25.562 Pain in left knee (principal); M25.561 Pain in right knee; Z96.651 Presence of right artificial knee joint
CPT/HCPCS: 73560; 73562; 99212

== ENCOUNTER 2024-03-19 09:42 | Outpatient (AMB) | payer MEDICARE, SELFPAY ==
--- NOTE | 2024-03-19 09:47 | MHC.OFFVIS ---
Intake Visit Reasons: OV- 2 year follow up Intake Note: Luis Miguel 68 year old male who presents today for a follow up s/p right TKA on 08/29/20. Patient reports occasional stiffness and soreness overall doing really well. Allergies No Known Allergies [No Known Allergies*] Allergy (Verified 03/19/24 09:56) HPI HPI OV- 2 year follow up: Details: 68-year-old male who returns to the office today for 1 year follow-up s/p right TKA, 08/29/20. He reports occasional stiffness and soreness in his knee as well as pain with prolonged walking. He denies any pain otherwise and has no other concerns today. [facility] Medical History Arthritis Asthma Back pain COVID-19 vaccine administered COVID-19 virus antibody negative Degenerative disc disease Diabetes Elevated cholesterol GERD (gastroesophageal reflux disease) History of pericarditis HTN (hypertension) Lab test negative for COVID-19 virus Primary osteoarthritis of right knee Scoliosis Sleep apnea Surgical History History of total right knee replacement Hx of colonoscopy H/O total hip arthroplasty Social History Household Members: Spouse and Children Housing: House Are you a primary manager intensive care unit to a significant other at home: No Do you presently have visiting nurse or other home services: No Alcohol intake: current Alcohol intake frequency: a few times a month Alcohol type: beer Patient Tobacco Use Status: Former Tobacco user Tobacco use type: Cigarette Second Hand Smoke Exposure: No service: No 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 No erythema or joint effusion. Full ROM and good quad activation. Calf supple, nontender. NVI. Results Reviewed Results Reviewed: xrays of the right knee obtained today show intact prosthesis without signs of loosening. Assessment & Plan Assessment & Plan (1) Status post total right knee replacement: Code(s): Z96.651 - Presence of right artificial knee joint Category: Surgical Plan He will continue with activities as tolerated. I educated him on going forward, he does not need to see me until he has any questions or concerns. He does not need his antibiotics prophylaxis for dental visits anymore. If symptoms persist or worsen, patient will contact the office, otherwise follow-up as needed. Orders: Orders XR knee LT 1V Today M25.562 - Pain in left knee XR knee RT 3V Today M17.11 - Unilateral primary osteoarthritis, right knee Patient Instructions: Scribed for Opal Almanzar PA-C, by Leonides Muhammad medical insurance coding specialist, on 03/19/2024 at 9:45 AM EST.? I, Opal Almanzar PA-C, have personally reviewed and agree with the information entered by the scribe. Coding Level of Care Code Est Pt Level 3 (64798) Complex EM visit Add On G2211 Diagnoses Status post total right knee replacement Z96.651
== END 2024-03-19 10:49 | disposition home or self-care (01) ==
PROVIDERS: PCP Internal Medicine; Visit Provider Physician Assistant
DX: Z47.89 Encounter for other orthopedic aftercare (principal); Z96.651 Presence of right artificial knee joint
CPT/HCPCS: 99212

== ENCOUNTER 2024-04-28 10:11 | Outpatient (REF) | payer MEDICARE, SELFPAY ==
[2024-04-28 10:50] LABS: MANUAL DIFF FLAG NO
[2024-04-28 11:07] LABS: Basophils Absolute Auto 0.1 X10*3/uL (0.0-0.2); Basophils Percent Auto 0.8 % (0-2); Eosinophils Absolute Auto 0.4 X10*3/uL (0.0-0.4); Eosinophils Percent Auto 5.1 % (0-4); Hematocrit 46.8 % (42.0-52.0); Hemoglobin 15.6 g/dl (14.0-18.0); Imm Gran Abs Auto 0.03 X10*3/uL (0.00-0.03); Imm Gran Pct Auto 0.4 % (0.0-0.4); Lymphocytes Percent Auto 26.4 % (20-40); Mean Corpuscular HGB Conc 33.3 g/dl (31.0-36.0); Mean Corpuscular Hemoglobin 29.8 pg (27.0-33.0); Mean Corpuscular Volume 89.5 fL (80.0-98.0); Mean Platelet Volume 10.5 fL (9.4-12.4); Monocytes Absolute Auto 0.6 X10*3/uL (0.1-1.2); Monocytes Percent Auto 8.5 % (2-11); Neutrophils Absolute Auto 4.4 x10*3/uL (2.0-8.3); Neutrophils Percent Auto 58.8 % (45-73); Platelet Count 284 X10*3/uL (160-400); Red Blood Count 5.23 X10*6/uL (4.60-5.80); Red Cell Distribution Width 13.1 % (11.0-16.0); White Blood Count 7.4 X10*3/uL (4.8-10.8)
[2024-04-28 11:25] LABS: Estimated Average Glucose 171 mg/dL; Hemoglobin A1C 228.2754 umol/L; Hemoglobin A1c % 7.6 % (<6.0); Total Hemoglobin (HGBA1C) 3867.9131 umol/L
[2024-04-28 11:31] LABS: Alanine Aminotransferase 43 U/L (0-40); Albumin Level 4.4 g/dL (3.5-5.0); Alkaline Phosphatase 73 U/L (39-117); Anion Gap 13 (12-20); Aspartate Amino Transferase 23 U/L (5-37); Bilirubin Total 0.5 mg/dL (0.0-1.0); Blood Urea Nitrogen 14 mg/dL (9-16); Calcium 9.4 mg/dL (8.4-10.2); Carbon Dioxide 27 mmol/L (22-29); Chloride 105 mmol/L (96-108); Estimated Glomerular Filt Rate > 60; Glucose Random 175 mg/dL (60-115); Potassium 4.7 mmol/L (3.3-5.1); Sodium 140 mmol/L (135-145); Total Protein 7.7 g/dL (6.5-8.0)
== END 2024-04-28 10:12 | disposition home or self-care (01) ==
LOC: HO.10HDL 10:11
PROVIDERS: Visit Provider Internal Medicine
DX: E11.9 Type 2 diabetes mellitus without complications (principal); I10 Essential (primary) hypertension; J45.909 Unspecified asthma, uncomplicated
CPT/HCPCS: 36415; 80053; 83036; 85025

== ENCOUNTER 2024-08-24 08:37 | Outpatient (REF) | payer MEDICARE, SELFPAY ==
[2024-08-24 10:27] LABS: MANUAL DIFF FLAG NO
[2024-08-24 10:30] LABS: Basophils Absolute Auto 0.1 X10*3/uL (0.0-0.2); Basophils Percent Auto 0.9 % (0-2); Eosinophils Absolute Auto 0.4 X10*3/uL (0.0-0.4); Hematocrit 44.4 % (42.0-52.0); Hemoglobin 15.2 g/dl (14.0-18.0); Imm Gran Abs Auto 0.02 X10*3/uL (0.00-0.03); Imm Gran Pct Auto 0.3 % (0.0-0.4); Lymphocytes Absolute Auto 1.7 X10*3/uL (1.2-4.9); Lymphocytes Percent Auto 22.1 % (20-40); Mean Corpuscular HGB Conc 34.2 g/dl (31.0-36.0); Mean Corpuscular Hemoglobin 29.6 pg (27.0-33.0); Mean Corpuscular Volume 86.4 fL (80.0-98.0); Mean Platelet Volume 10.5 fL (9.4-12.4); Monocytes Absolute Auto 0.6 X10*3/uL (0.1-1.2); Neutrophils Absolute Auto 5.1 x10*3/uL (2.0-8.3); Neutrophils Percent Auto 64.7 % (45-73); Platelet Count 263 X10*3/uL (160-400); Red Blood Count 5.14 X10*6/uL (4.60-5.80); Red Cell Distribution Width 13.1 % (11.0-16.0); White Blood Count 7.9 X10*3/uL (4.8-10.8)
[2024-08-24 11:04] LABS: Alanine Aminotransferase 57 U/L (0-40); Albumin Level 4.4 g/dL (3.5-5.0); Alkaline Phosphatase 74 U/L (39-117); Anion Gap 16 (12-20); Aspartate Amino Transferase 36 U/L (5-37); Bilirubin Total 0.5 mg/dL (0.0-1.0); Blood Urea Nitrogen 15 mg/dL (9-16); Calcium 9.1 mg/dL (8.4-10.2); Carbon Dioxide 22 mmol/L (22-29); Chloride 105 mmol/L (96-108); Cholesterol 145 mg/dL (<200); Estimated Glomerular Filt Rate > 60; Glucose Fasting 164 mg/dL (60-99); HDL Cholesterol 31 mg/dL (>40); LDL Cholesterol Calculated 78 mg/dL (<100); Sodium 139 mmol/L (135-145); Total Protein 8.1 g/dL (6.5-8.0); Triglycerides 182 mg/dL (<150)
[2024-08-24 12:03] LABS: Estimated Average Glucose 174 mg/dL; Hemoglobin A1c % 7.7 % (<6.0); Total Hemoglobin (HGBA1C) 3953.8387 umol/L
[2024-08-24 12:32] LABS: Prostate Specific Antigen Scr 1.42 ng/mL (<0.05-4.0)
[2024-08-24 17:33] LABS: Creatinine Urine 184.77 mg/dL; Microalbum/Creatinine Ratio Ur 16.7 ug/mg cr (<30)
== END 2024-08-24 08:38 | disposition home or self-care (01) ==
LOC: HO.10HDL 08:37
PROVIDERS: Visit Provider Internal Medicine
DX: E11.9 Type 2 diabetes mellitus without complications (principal); Z12.5 Encounter for screening for malignant neoplasm of prostate; E78.00 Pure hypercholesterolemia, unspecified; K21.9 Gastro-esophageal reflux disease without esophagitis; I10 Essential (primary) hypertension
CPT/HCPCS: 36415; 80053; 80061; 82043; 82570; 83036; 84153; 85025

== ENCOUNTER 2024-09-14 08:27 | Day surgery (SDC) | payer MEDICARE, SELFPAY ==
--- NOTE | 2024-09-14 08:34 | P.CONAN_ITS ---
HPI - Anesthesia Eval Consult details Narrative: for cataract extraction PMFSH Active Problems Active Problems: All Active Problems Status post total right knee replacement (Acute) Past Medical History Medical History Colon polyps Diabetic neuropathy Overweight Hayfever Scoliosis Degenerative disc disease COVID-19 vaccine administered Lab test negative for COVID-19 virus Sleep apnea Primary osteoarthritis of right knee Diabetes Arthritis Back pain GERD (gastroesophageal reflux disease) COVID-19 virus antibody negative Asthma History of pericarditis Elevated cholesterol HTN (hypertension) Family History Family history of problems with anesthesia: No Surgical History Surgical History History of total right knee replacement Hx of colonoscopy H/O total hip arthroplasty History of Problems with Anesthesia: No Social History Social History Household Members: Spouse and Children Housing: House Are you a primary career technology teacher to a significant other at home: No Do you presently have visiting nurse or other home services: No Alcohol intake: current Alcohol intake frequency: a few times a month Alcohol type: beer Patient Tobacco Use Status: Former Tobacco user Tobacco use type: Cigarette Second Hand Smoke Exposure: No Are you DNR?: No Advance Directives: No Advance Directives Information Provided: Yes Advance Directives on File: No How much weight loss: 2-13 pounds service: No 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 Allergies Allergy/AdvReac Type Severity Reaction Status Date / Time No Known Allergies Allergy Verified 03/19/24 09:56 [No Known Allergies*] Home Medications ?Medication ?Instructions ?Recorded ?Confirmed ?Last Taken ?Type losartan 25 mg tablet 25 mg PO DAILY 04/18/20 09/09/24 10/15/22 History diltiazem HCl 240 mg 1 cap PO QAM 04/19/20 09/09/24 10/15/22 History capsule,extended release 24 hr metformin 500 mg tablet 1,000 mg PO QAM 04/19/20 09/09/24 10/15/22 History metformin 500 mg tablet 500 mg PO QPM 04/19/20 09/09/24 10/15/22 History rosuvastatin 10 mg tablet 10 mg PO BEDTIME 06/28/20 09/09/24 10/15/22 History glipizide 2.5 mg tablet, extended 2.5 mg PO DAILY 09/21/21 09/09/24 10/15/22 History release 24 hr albuterol sulfate 90 mcg/actuation 2 puff inhalation Q4H PRN 10/17/22 09/09/24 Unknown History aerosol inhaler Shortness Of Breath Or Wheezing Exam Height,Weight and Vital Signs: Height 5 ft 11 in Airway Mallampati Class: II TM Dist: >3cm Neck ROM: Limited Heart: rrr Lungs: cta Assessment and Plan Assessment Anesthesia Assessment: Anesthesia Plan Discussed Final Anesthetic Review Family History of Problems with Anesthesia: No History of Problems with Anesthesia: No ASA Class: III Final Preanesthetic Review: No Changes in Pt Med Stat, Meds/Allgs Chart Reviewed, Consent Obtained/Reviewed and Anes Risks/Benef Reviewed Patient Risk: Intermediate Procedure Risk: Low Anesthetic Plan Anesthetic Plan: MAC: Disposition: Standard PACU
[2024-09-14 08:46] VITALS: BP 179/92; PULSE 104; RESP 20; TEMP 36.4; O2SAT 96
[2024-09-14] MEDS: Tetracaine HCl/PF 0.5% Oph Sol 4 ML DROPS 1 DROP EYE-LEFT (08:58)
[2024-09-14] MEDS: Cyclopentolate 1 % Ophth Sol 2 ML DRPBTL 1 DROP EYE-LEFT ×3 (08:59→09:00)
[2024-09-14] MEDS: Phenylephrine HCL 2.5% Oph SoL 2 ML BOTTLE 1 DROP EYE-LEFT ×3 (08:59→09:00)
[2024-09-14] MEDS: Tropicamide 1 % Ophth Sol 3 ML BTL 1 DROP EYE-LEFT ×3 (08:59→09:00)
[2024-09-14] MEDS: Ketorolac Tromethamine 0.5% Op 5 ML DROPS 1 DROP EYE-LEFT ×3 (08:59→09:00)
[2024-09-14 09:01] VITALS: BMI 34.5
[2024-09-14 09:06] LABS: Glucose, Whole Blood 172 mg/dL (60-115)
[2024-09-14] MEDS: Lactated Ringers 500 ML 20 ML IVCONT (09:11)
--- NOTE | 2024-09-14 10:05 | MHC.SHP ---
Pre-Procedural Eval Section A - 24 Hr Update-Section A only Date of Service: 09/14/24 The patient is an INPATIENT: No Changes since office visit: No Cold of Flu in the past 2 weeks, No New Medical Problems, No Changes in Medication and No Patient answered all questions The patient has been examined within 24 hours of the surgical procedure. The History & Physical has been completed within 30 days and I have reviewed it.: Yes Section B - Complete if H&P > 30 days Chief Complaint: Age-related nuclear cataract, left eye Allergies: Allergies Allergy/AdvReac Type Severity Reaction Status Date / Time No Known Allergies Allergy Verified 03/19/24 09:56 [No Known Allergies*] Plan Diagnosis/Plan: Unchanged I have reviewed the history and physical and performed a pertinent physical examination on my patient. No changes have occurred unless specified. Time Spent With Patient Time: Total time managing care of this patient today ____ minutes.
--- NOTE | 2024-09-14 10:05 | HO.PNOPHT ---
Ophthalmology Procedure Procedure Date of Service: 09/14/24 Ophthalmology Viscoelastic: Healon Duet Dual Pack Pro Ophthalmology Lenses: IOL Acrysof MP - MA60AC (19.5) Procedure Notes: PREOPERATIVE DIAGNOSIS: Decreased visual acuity left eye secondary to cataract POSTOPERATIVE DIAGNOSIS: Same PROCEDURE: Left cataract extraction with intraocular lens insertion SURGEON: Eric Hunt M.D. ANESTHESIA: Topical/MAC ESTIMATED BLOOD LOSS: None COMPLICATIONS: None After obtaining informed consent, the patient was brought to the operation room suite and placed in the supine position. After adequate sedation per anesthesia, topical drops of Tetracaine were given to the left eye. The eye was then prepped and draped in the usual sterile fashion. The operating room microscope was then positioned over the operative eye and a lid speculum placed. A paracentesis was created. Viscoelastic was then instilled into the anterior chamber. A three plane incision was then created temporally, utilizing a 2.85 mm keratome. Capsulotomy forceps were then utilized to create a circular tear capsulotomy. Hydrodissection and hydrodelineation were carried out until adequate mobilization of the nucleus occurred. Phacoemulsification was then utilized to remove the dense central nucleus followed by removal of the cortical material utilizing the automated aspiration irrigation unit. Viscoat elastic was instilled into the posterior capsular bag followed by placement of a posterior chamber intraocular lens without difficulty. The residual Viscoat elastic was then removed utilizing the automated IA machine. The wound was check and found to be watertight. The patient tolerated the procedure well and the lid speculum was removed. Intracameral injection of Vigamox 0.1 mL followed by a subtenon injection of Kenalog-40 0.2 mL were administered. The patient will be seen in the a.m.
[2024-09-14 10:29] VITALS: BP 145/82; PULSE 92; RESP 16; TEMP 36.4; O2SAT 97
== END 2024-09-14 10:39 | disposition home or self-care (01) ==
PROVIDERS: PCP Internal Medicine; Visit Provider Ophthalmology
PROC: (CPT 66985; principal; 2024-09-14 10:30)
DX: H25.12 Age-related nuclear cataract, left eye (principal); H52.4 Presbyopia; H35.033 Hypertensive retinopathy, bilateral; H18.413 Arcus senilis, bilateral; I10 Essential (primary) hypertension; E78.00 Pure hypercholesterolemia, unspecified; E11.9 Type 2 diabetes mellitus without complications; G47.33 Obstructive sleep apnea (adult) (pediatric); Z79.84 Long term (current) use of oral hypoglycemic drugs; Z79.899 Other long term (current) drug therapy; Z96.651 Presence of right artificial knee joint; Z96.642 Presence of left artificial hip joint
CPT/HCPCS: 66984; 82947; J2250; J3301; V2630

== ENCOUNTER 2024-09-28 06:57 | Day surgery (SDC) | payer MEDICARE, SELFPAY ==
--- NOTE | 2024-09-25 09:55 | HO.ANESPROP2 ---
Documented by User: Sandy Hope NP 09/25/24 09:56 HPI - Anesthesia Eval Consult details Narrative: 69yo M for Right Cataract Extraction IOL Insertion Left eye 09/14/24: Midaz 2 PMFSH Active Problems Active Problems: All Active Problems Status post total right knee replacement (Acute) Past Medical History Medical History Colon polyps Diabetic neuropathy Overweight Hayfever Scoliosis Degenerative disc disease COVID-19 vaccine administered Lab test negative for COVID-19 virus Sleep apnea Primary osteoarthritis of right knee Diabetes Arthritis Back pain GERD (gastroesophageal reflux disease) COVID-19 virus antibody negative Asthma History of pericarditis Elevated cholesterol HTN (hypertension) Family History Family history of problems with anesthesia: No Surgical History Surgical History History of total right knee replacement Hx of colonoscopy H/O total hip arthroplasty History of Problems with Anesthesia: No Social History Social History Household Members: Spouse and Children Housing: House Are you a primary family member caretaker to a significant other at home: No Do you presently have visiting nurse or other home services: No Alcohol intake: current Alcohol intake frequency: a few times a month Alcohol type: beer Patient Tobacco Use Status: Former Tobacco user Tobacco use type: Cigarette Second Hand Smoke Exposure: No service: No 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 Allergies Allergy/AdvReac Type Severity Reaction Status Date / Time No Known Allergies Allergy Verified 09/28/24 07:06 [No Known Allergies*] Home Medications ?Medication ?Instructions ?Recorded ?Confirmed ?Last Taken ?Type losartan 25 mg tablet 25 mg PO DAILY 04/18/20 09/28/24 09/27/24 History diltiazem HCl 240 mg 1 cap PO QAM 04/19/20 09/28/24 09/27/24 History capsule,extended release 24 hr metformin 500 mg tablet 1,000 mg PO QAM 04/19/20 09/28/24 09/27/24 History metformin 500 mg tablet 500 mg PO QPM 04/19/20 09/28/24 09/27/24 History rosuvastatin 10 mg tablet 10 mg PO BEDTIME 06/28/20 09/28/24 09/27/24 History glipizide 2.5 mg tablet, extended 2.5 mg PO DAILY 09/21/21 09/28/24 09/27/24 History release 24 hr albuterol sulfate 90 mcg/actuation 2 puff inhalation Q4H PRN 10/17/22 09/28/24 09/27/24 History aerosol inhaler Shortness Of Breath Or Wheezing Exam Height,Weight and Vital Signs: Height 5 ft 11 in Assessment and Plan Assessment Anesthesia Assessment: Chart Reviewed Final Anesthetic Review Family History of Problems with Anesthesia: No History of Problems with Anesthesia: No Documented by User: Radha Kmuar MD 09/28/24 08:47 PMFSH Past Medical History Medical History Colon polyps Diabetic neuropathy Overweight Hayfever Scoliosis Degenerative disc disease COVID-19 vaccine administered Lab test negative for COVID-19 virus Sleep apnea Primary osteoarthritis of right knee Diabetes Arthritis Back pain GERD (gastroesophageal reflux disease) COVID-19 virus antibody negative Asthma History of pericarditis Elevated cholesterol HTN (hypertension) Family History Family history of problems with anesthesia: No Surgical History Surgical History History of total right knee replacement Hx of colonoscopy H/O total hip arthroplasty History of Problems with Anesthesia: No Social History Social History Household Members: Spouse and Children Housing: House Are you a primary family member caretaker to a significant other at home: No Do you presently have visiting nurse or other home services: No Alcohol intake: current Alcohol intake frequency: a few times a month Alcohol type: beer Patient Tobacco Use Status: Former Tobacco user Tobacco use type: Cigarette Second Hand Smoke Exposure: No service: No 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 Allergies Allergy/AdvReac Type Severity Reaction Status Date / Time No Known Allergies Allergy Verified 09/28/24 07:06 [No Known Allergies*] Home Medications ?Medication ?Instructions ?Recorded ?Confirmed ?Last Taken ?Type losartan 25 mg tablet 25 mg PO DAILY 04/18/20 09/28/24 09/27/24 History diltiazem HCl 240 mg 1 cap PO QAM 04/19/20 09/28/24 09/27/24 History capsule,extended release 24 hr metformin 500 mg tablet 1,000 mg PO QAM 04/19/20 09/28/24 09/27/24 History metformin 500 mg tablet 500 mg PO QPM 04/19/20 09/28/24 09/27/24 History rosuvastatin 10 mg tablet 10 mg PO BEDTIME 06/28/20 09/28/24 09/27/24 History glipizide 2.5 mg tablet, extended 2.5 mg PO DAILY 09/21/21 09/28/24 09/27/24 History release 24 hr albuterol sulfate 90 mcg/actuation 2 puff inhalation Q4H PRN 10/17/22 09/28/24 09/27/24 History aerosol inhaler Shortness Of Breath Or Wheezing Exam Height,Weight and Vital Signs: Height 5 ft 11 in Weigt 245# Pertinent Lab Results Pertinent Lab Results: Lab Results 09/28/24 Range/Units 07:51 POC Glucose 167 H (60-115) mg/dL Airway Mallampati Class: III TM Dist: >3cm Neck ROM: Full Loose/Missing/Broken Teeth: Yes (Broken tooth bottom front. Some missing teeth. Denies loose teeth) Heart: RRR Lungs: CTAB Assessment and Plan Assessment Anesthesia Assessment: Anesthesia Plan Discussed and Chart Reviewed Final Anesthetic Review Family History of Problems with Anesthesia: No History of Problems with Anesthesia: No NPO: Yes ASA Class: III Final Preanesthetic Review: No Changes in Pt Med Stat, Meds/Allgs Chart Reviewed, Consent Obtained/Reviewed and Anes Risks/Benef Reviewed Patient Risk: Intermediate Procedure Risk: Low Assessment/Block/Sedation in SS: Assess/Block/Sedation-SS Anesthetic Plan Anesthetic Plan: MAC: Disposition: Standard PACU
[2024-09-28 07:10] VITALS: BP 159/89; PULSE 93; RESP 14; TEMP 36.6; O2SAT 98
[2024-09-28] MEDS: Tetracaine HCl/PF 0.5% Oph Sol 4 ML DROPS 1 DROP EYE-RIGHT (07:20)
[2024-09-28] MEDS: Cyclopentolate 1 % Ophth Sol 2 ML DRPBTL 1 DROP EYE-RIGHT ×3 (07:21→07:29)
[2024-09-28] MEDS: Tropicamide 1 % Ophth Sol 3 ML BTL 1 DROP EYE-RIGHT ×3 (07:22→07:30)
[2024-09-28] MEDS: Ketorolac Tromethamine 0.5% Op 5 ML DROPS 1 DROP EYE-RIGHT ×3 (07:23→07:31)
[2024-09-28] MEDS: Phenylephrine HCL 2.5% Oph SoL 2 ML BOTTLE 1 DROP EYE-RIGHT ×3 (07:24→07:32)
[2024-09-28] MEDS: Lactated Ringers 500 ML 50 ML IV (07:32)
[2024-09-28 07:54] LABS: Glucose, Whole Blood 167 mg/dL (60-115)
--- NOTE | 2024-09-28 08:12 | P.PCNO_ITS ---
Ophthalmology Procedure Procedure Date of Service: 09/28/24 Ophthalmology Viscoelastic: Healon Duet Dual Pack Pro Ophthalmology Lenses: IOL Acrysof MP - MA60AC (18.5) Procedure Notes: PREOPERATIVE DIAGNOSIS: Decreased visual acuity right eye secondary to cataract POSTOPERATIVE DIAGNOSIS: Same PROCEDURE: Right cataract extraction with intraocular lens insertion SURGEON: Eric Hunt M.D. ANESTHESIA: Topical/MAC ESTIMATED BLOOD LOSS: None COMPLICATIONS: None After obtaining informed consent, the patient was brought to the operating room suite and placed in the supine position. After adequate sedation per anesthesia, topical drops of Tetracaine were given to the right eye. The eye was then prepped and draped in the usual sterile fashion. The operating room microscope was then positioned over the operative eye and a lid speculum placed. A paracentesis was created. Viscoelastic was then instilled into the anterior chamber. A three plane incision was then created temporally, utilizing a 2.85 mm keratome. Capsulotomy forceps were then utilized to create a circular tear capsulotomy. Hydrodissection and hydrodelineation were carried out until adequate mobilization of the nucleus occurred. Phacoemulsification was then utilized to remove the dense central nu cleus followed by removal of the cortical material utilizing the automated aspiration irrigation unit. Viscoelastic was instilled into the posterior capsular bag followed by placement of a posterior chamber intraocular lens without difficulty. The residual Viscoelastic was then removed utilizing the automated IA machine. The wound was checked and found to be watertight. The patient tolerated the procedure well and the lid speculum was removed. Intracameral injection of Vigamox 0.1 mL followed by a subtenon injection of Kenalog-40 0.2 mL were administered. The patient will be seen in the a.m.
--- NOTE | 2024-09-28 08:12 | MHC.SHP ---
Pre-Procedural Eval Section A - 24 Hr Update-Section A only Date of Service: 09/28/24 The patient is an INPATIENT: No Changes since office visit: No Cold of Flu in the past 2 weeks, No New Medical Problems, No Changes in Medication and No Patient answered all questions The patient has been examined within 24 hours of the surgical procedure. The History & Physical has been completed within 30 days and I have reviewed it.: Yes Section B - Complete if H&P > 30 days Chief Complaint: Age-related nuclear cataract, right eye Allergies: Allergies Allergy/AdvReac Type Severity Reaction Status Date / Time No Known Allergies Allergy Verified 09/28/24 07:06 [No Known Allergies*] Plan Diagnosis/Plan: Unchanged I have reviewed the history and physical and performed a pertinent physical examination on my patient. No changes have occurred unless specified. Time Spent With Patient Time: Total time managing care of this patient today ____ minutes.
[2024-09-28 08:37] VITALS: BP 169/81; PULSE 93; RESP 20; TEMP 36.3; O2SAT 98
== END 2024-09-28 08:42 | disposition home or self-care (01) ==
PROVIDERS: PCP Internal Medicine; Visit Provider Ophthalmology
PROC: (CPT 66985; principal; 2024-09-28 08:30)
DX: H25.11 Age-related nuclear cataract, right eye (principal); H52.4 Presbyopia; H35.033 Hypertensive retinopathy, bilateral; H18.413 Arcus senilis, bilateral; I10 Essential (primary) hypertension; E11.9 Type 2 diabetes mellitus without complications; G47.33 Obstructive sleep apnea (adult) (pediatric); E78.00 Pure hypercholesterolemia, unspecified; Z96.651 Presence of right artificial knee joint; Z96.642 Presence of left artificial hip joint; Z79.84 Long term (current) use of oral hypoglycemic drugs; Z79.899 Other long term (current) drug therapy
CPT/HCPCS: 66984; 82947; J2250; J3010; J3301; V2630

== ENCOUNTER 2024-12-03 11:39 | Outpatient (REF) | payer MEDICARE, SELFPAY ==
--- OUTSIDE RECORDS SUMMARY | 2024-12-03 12:44 | XMS_ITS ---
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 Role Phone Franklin Baldwin MD Primary Care Provider Unavaila ble Black, Jessica Unavailable [phone] Allergies No Known Allergies REASON FOR VISIT At Risk Footcare, Skin problem(s) Medications Medication SIG (Take, Route, Frequency, Duration) Notes Start Date End Date Status Aspirin 81 81 MG 1 tablet Orally Once a day for 30 day(s) Not-Taking Losartan Potassium 25 MG (Prior Auth#:[id number]) Oral for 90 Active Ammonium Lactate 12 % 1 application Externally Twice a day for 30 days Active metFORMIN HCl 500 MG (Prior Auth#:[id number]) Oral for 90 Active Omeprazole 20 MG (Prior Auth#:[id number]) Oral for 90 Active glipiZIDE XL 2.5 MG 1 tablet with breakf ast Orally Once a day for 30 day(s) Active dilTIAZem HCl ER Beads 240 MG 1 capsule Orally Once a day for 30 day(s) Active Ammonium Lactate 12 % 1 application Externally to affected areas of skin to feet except for between the toes Twice a day for 30 days Active Rosuvastatin Calcium 5 MG (Prior Auth#:[id number]) Oral for 90 Active Social History Tobacco Use: Social History Observation Description Date Details (start date - stop date) Never Smoker NA - NA Tobacco Use/Smoking Question Answer Notes Are you a: nonsmoker Additional Findings: Tobacco Non-User Ex-cigaret te smoker amount unknown Tobacco use other than smoking: Question Answer Notes Are you an other tobacco user? No Vital Signs Height 4ac62wx in 04/23/2024 Weight 252 lbs 04/23/2024 BMI 36.15 kg/m2 04/23/2024 Procedures Procedure Date Ordered Date Performed Result Body Sit e 65865-SZKN SKIN LESIONS, 2 TO 4 04/23/2024 N/A Z1781-KXWVXQXA DYSTROPHIC NAILS ANY # 04/23/2024 N/A Encounters Encounter Location Date Provider Diagnosis [facility] [place] [address] [place] [address] 04/23/2024 Jessica Mclaughlin Type 2 diabetes mellitus with diabetic polyneuropathy E11.42 and Xerosis of skin L85.3 Assessments Encounter Date Diagnosis (ICD Code) Assessment Notes Treatment Notes Treatment Clinical Notes Section Notes 04/23/2024 Type 2 diabetes mellitus with diabetic polyneuropathy (ICD-10 - E11.42) 04/23/2024 Xerosis of skin (ICD-10 - L85.3) Plan Of Treatment Medication Medication Name Sig Start Date Stop Date Notes Ammonium Lactate 12 % 1 application Exte rnally to affected areas of skin to feet except for between the toes Twice a day for 30 days Pending Test Test Name Order Date 47963-XUKS SKIN LESIONS, 2 TO 4 04/23/20 24 V6775-VDJJYEHU DYSTROPHIC NAILS ANY # Next Appt Details Follow Up: 3 Months, Reason: Provider Name:Jessica Mclaughlin , 02/08/2025 11:30:00 AM, [address] [place] [address], [phone], Procedure Notes * Category Sub-Category Detail Notes Keratoma Treatment Parring or Cutting o f Benign Hyperkeratotic Lesion(s) 17585 (2-4 Lesions) - The Benign hyperkeratotic lesions, as described above were pared, and/or cut utilizing a sterile #15 blade, tissue nippers, and/or dremel Nail Reduction Nail Reduction Trimming of dyst rophic nails performed to reduce/remove overall nail length and girth, by manual and electrical means with use of a nail nipper and/or dremel, to more viable healthy nail plate or bed tissue 6-10 (G0127) Progress Notes * Joe LI:05/08 (68 yo M)Acc No.[id number]:04/23/2024 Progress Note Patient:?Joe Li Provider:?Jessica Mclaughlin DPM :1955???Age:68 Y???Sex:Male Holger e:04/23/2024 Address:[address], [place], [facility] Pcp:Franklin Baldwin MD Subjective: * Chief Complaints: * ???At Risk FootcareSkin prob maxime(s) * HPI: ???At Risk footcare:?Pt States Last PCP Visit:?Date?01/16/2024 ???Skin problems:?Nature:?dryness , scaling.?Location:?B/L .?Duration:?several days.?Course:?worse.? * ROS:?General/Constitutional:?Nausea?denies.?Vomiting?denies.?Hunger Thirst?denies.?Loss appetite?denies.?Chills?denies.?Fatigue?denies.?Fever?denies.?Night Sweats?denies.?Unexplained weight loss?denies.?Unexplained weight gain?denies.?HEENTM:?Dentures?denies.?Dizziness?denies.?Glasses/contacts?admits.?Retinopathy?de nies.?Blurred/double vision?denies.?TMJ?denies.?Discharge/drainage?denies.?Implants?denies.?Sore throat?denies.?Dental implants?denies.?Hard of hearing ?denies.?Difficulty chewing/swallowing/speaking?denies.?Nose bleeds?denies.?Sore mouth?denies.?Respiratory:?On Oxygen?denies.?Pneumonia/pleurisy?denies.?Bronchitis?denies.?Emphysema?denies.?C oughing?denies.?Cough blood?denies.?Shortness of breath?denies.?Wheezing?admits.?Cardiovascular:?Pacemaker?denies.?MVP?denies.?WPW?denies.?CHF?denies.?Heart attack?denies.?Septal defect?denies.?Rapid beat?denies.?Chest pain ?denies.?Atrial Fib.?denies.?Murmur/Palpitations?denies.?Gastrointestinal:?Hemorrhoids?denies.?Stomach/Abdominal pain?denies.?Dark blood stool?denies.?Irritable bowel ?denies.?Constipation?denies.?Diarrhea?denies.?Hematology:?Swelling?denies.?Clots?denies.?Varicose Veins?denies.?Bruising?denies.?Bleeding problem?denies.?Genitourinary:?Blood urine?denies.?Frequent/Painfu/urination/bladder control?denies.?Kidney stones?denies.?Infection (UTI)?denies.?Nephropathy?denies.?sex trans dis (STD)?denies.?Prostate?denies.?Musculoskeletal:?Hammertoes?denies.?Bunions?denies.?Back Pain?denies.?Muscle Cramps/ Resting?admits.?Muscle cramps / walking?denies.?Generalized aches and pains?admits.?Weakness?denies.?Integ.:?Dowling?denies.?Scars?denies.?Corns/calluses?denies.?Ingrown nails?denies.?Painful nails?denies.?Open Sores?denies.?Rashes?denies.?Neurologic:?Difficulty sleeping?denies.?Brain disorder?denies.?Numbness?denies.?Balance trouble?denies.?Confusion?denies.?Fainting/blackouts?denies.?Tingling?denies.?Tr emors?denies.? * Medical History:? * Surgical History:?knee repla cement hip replacement wisdom teeth extraction colonoscopy * Hospitalization/Major Diagno stic Procedure:?C-Dehydration 10/11 * Family History:?Mother: dece ased, diagnosed with Diabetic - NIDDM.?Father: , diagnosed with Family history of arthritis, Diabetic - NIDDM, Unspecified essential hypertension, Unspecified cerebral artery occlusion with cerebral infarction.?Siblings: diagnosed with Unspecified heart disease.? * Social History:?Tobacco Use:?Tobacco Use/Smoking?Are you a:?nonsmoker ?Additional Findings: Tobacco Non-User?Ex-cigarette smoker amount unknown ?Tobacco use other than smoking?Are you an other tobacco user??No ???Miscellaneous:?Caffeine: yes, 3-5 cups per day,. ?Children: yes, 1 son, 2 daughters. ?Exercise: yes, walking. ?Marital status: . 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 * Medications:?TakingglipiZIDE XL 2.5 MG Tablet Extended Release 24 Hour 1 tablet with breakfast Orally Once a daydilTIAZem HCl ER Beads 240 MG Capsule Extended Release 24 Hour 1 capsule Orally Once a dayRosuvastatin Calcium 5 MG Tablet (Prior Auth#:[id number]) Oral metFORMIN HCl 500 MG Tablet (Prior Auth#:[id number]) Oral Omeprazole 20 MG Capsule Delayed Release (Prior Auth#:[id number]) Oral Losartan Potassium 25 MG Tablet (Prior Auth#:[id number]) Oral Ammonium Lactate 12 % Cream 1 application Externally Twice a dayTaking glipiZIDE XL 2.5 MG Tablet Extended Release 24 Hour 1 tablet with breakfast Orally Once a dayTaking dilTIAZem HCl ER Beads 240 MG Capsule Extended Release 24 Hour 1 capsule Orally Once a dayTaking Rosuvastatin Calcium 5 MG Tablet (Prior Auth#:[id number]) Oral Taking metFORMIN HCl 500 MG Tablet (Prior Auth#:[id number]) Oral Taking Omeprazole 20 MG Capsule Delayed Release (Prior Auth#:[id number]) Oral Taking Losartan Potassium 25 MG Tablet (Prior Auth#:[id number]) Oral Taking Ammonium Lactate 12 % Cream 1 application Externally Twice a dayNot-Taking/PRNAspirin 81 81 MG Tablet Delayed Release 1 tablet Orally Once a dayMedication List reviewed and reconciled with the patientNot-Taking/PRN Aspirin 81 81 MG Tablet Delayed Release 1 tablet Orally Once a dayMedication List reviewed and reconciled with the patient * Allergies:?N.K.D.A.yes[Aller gies Verified] Objective: * Vitals:?Ht: 8xb21of, Wt:252, BMI:36.15, Shoe size: 10, BS: 171, Ht-cm: 177.8 cm, Wt-k.31 kg. * ???Past Orders: ???Lab:HEMOGLOBIN A1C (GLYCO HEMOGLOBIN) (Order Date - 12/21/2023) (Collection Date - 12/21/2023) ? Value Reference Range ?TOTAL HEMOGLOBIN (HGBA1C) 7.6 * Examination: ???Ophthalmology Referral: ?DIABETES EYE EXAM?Diabetic Retinopathy Screening:?Yes ?Findings of Diabetic Eye Exam:?no retinopathy?Neurological: ?SENSORY:?Neurological exam demonstrates, reduced light touch sensation, reduced sharp/dull pin prick discrimination , reduced vibration sensation, 5.07 monofilament test performed at plantar aspects of 5 varied sites per foot shows sensation, absent, B/L, Pt relates anesthesia and tingling.?Nails: ?NAILS are:?Elongated, overgrown, dystrophic , 1-5 B/L.?Dermatologic: ?SKIN FINDINGS:??Skin exam reveals Keratotic lesion(s) located at, SUB MTH (s) , 5 , Right , SUB 5th MTBase , Right? , Skin shows sign(s) of, dryness, scaling, in a stocking fashion, no fissure(s) present, B/L.?Vascular: ?DP PULSES(B):?2/4, B/L.?PT PULSES(B):?2/4, B/L.?General Examination: ?GENERAL APPEARANCE:?Reveals a pleasant, alert, well nourished, well- developed, well hydrated individual, who demonstrates proper attention to hygiene/body habitus, and is in no acute distress, Pt serves as own historian for office visit today.?ORIENTED:?person, place, and time.?FOOT EXAM:?Lower Extremity Neurological Exam performed:?No changes to the above exam findings since last visit??? Assessment: * Assessment: 1.?Type 2 diabetes mellitus with diabetic polyneuropathy - E11.42 (Primary)?2.?Xerosis of skin - L85.3, Acute problem, Uncomplicated (3),Rx Management (4)? Plan: * Treatment: 2.?Xerosis of skin? Start Ammonium Lactate Cream, 12 %, 1 application, Externally to affected areas of skin to feet except for between the toes, Twice a day, 30 days, 140, Refills 2.?? * Procedures:?Keratoma Treatment:?Parring or Cutting of Benign Hyperkeratotic Lesion(s)?21530 (2-4 Lesions) - The Benign hyperkeratotic lesions, as described above were pared, and/or cut utilizing a sterile #15 blade, tissue nippers, and/or dremel.?Nail Reduction:?Nail Reduction?Trimming of dystrophic nails performed to reduce/remove overall nail length and girth, by manual and electrical means with use of a nail nipper and/or dremel, to more viable healthy nail plate or bed tissue 6-10 (G0127).? * Procedure Codes:?81037 TRIM SKIN LESIONS, 2 TO 4, Modifiers: XS G0127 TRIMMING DYSTROPHIC NAILS ANY #, Modifiers: XS * Preventive Medicine:? ??Counseling:?Discussion:?-13: Office or other outpatient visit for the evaluation and management of an established patient, which required a medically appropriate history and/or examination and LOW level of DECISION MAKING for: 1 STABLE ACUTE UNCOMPLICATED PROBLEM, 2 OR MORE MINOR PROBLEMS, OR 1 STABLE CHRONIC PROBLEM, THAT POSE(S) A LOW RISK FOR MORBIDITY/MORTALITY. The visit on the day of the encounter encompassed interpreting the data and educating the patient as to the nature of their condition, treatment options available according to their individual PMH, meds, allergies, and overall health/living conditions, as well as any potential risks or complications that may occur from a failure to adhere to, and participate in, the recommended course of therapy. The discussion included a complete verbal, and/or written explanation of the examination results, any x-rays taken, the proposed diagnosis, and outline of the treatment plan. A schedule for future care needs was also explained. The patient verbalized an understanding of the instructions at this time and agreed to be an active participant in their treatment. If the patient should think of any questions or concerns after the visit, I have encouraged the patient to call the office.?Xerosis:?The patient was counseled on the diagnosis, potential etiologies, and treatment options for their skin condition. We discussed the risks and benefits of each option from performing no treatment, to utilizing OTC topical skin creams/ointments, to utilizing prescription topical creams/ointments, to utilizing customized compounded topical medications and use of nocturnal occlusion with any/all previously detailed therapies. We discussed the advantages and disadvantages of each possible treatment and importance for adherence to all the recommended therapies for optimum success and avoid potential complications such as open sore/infection/possible hospitalization. We discussed the potential effectiveness of each topical preparation as well as each ones possible side effects and/or patient medication interactions. Patient questions re: use, dosage, successful outcomes, and application consistency were reviewed and the patient verbalized that all answers were clearly understood. The patient has decided to apply Rx skin creams to their feet save the interspaces while paying special attention to the heels. Such was sent to their pharmacy at the time of visit.? * Follow Up:?3 Months * Images: * Sign off status: Completed true * Provider:?Jessica Mclaughlin DPM Date:?2023 Generated for Norman matos/Rush/eTransmitting on:?12/03/2024 12:44 PM EDT History and Physical Notes * HPI (History of Present Illness) Category Sub-Category Detail Notes Category Not es Skin problems Nature: dryness , scaling Location: B/L Duration: several days Course: worse At Risk footcare Pt States Last PCP Visit: Date: 4 Examination Category Sub-Category Detail Notes Category Not es Neurological SENSORY: Neurological exa m demonstrates, reduced light touch sensation, reduced sharp/dull pin prick discrimination , reduced vibration sensation, 5.07 monofilament test performed at plantar aspects of 5 varied sites per foot shows sensation, absent, B/L, Pt relates anesthesia and tingling Dermatologic SKIN FINDINGS: Skin exam reveal s Keratotic lesion(s) located at, SUB MTH (s) , 5 , Right , SUB 5th MTBase , Right , Skin shows sign(s) of, dryness, scaling, in a stocking fashion, no fissure(s) present, B/L General Examination GENERAL APPEARANCE: Reveals a pleasant, alert, well nourished, well-developed, well hydrated individual, who demonstrates proper attention to hygiene/body habitus, and is in no acute distress, Pt serves as own historian for office visit today FOOT EXAM: Lower Extremity Neur ological Exam performed:: No changes to the above exam findings since last visit ORIENTED: person, place, and t sharon Ophthalmology Referral DIABETES EYE EXAM Diabetic Retinopa thy Screening:: Yes Findings of Diabetic Eye Exam:: no retin opathy Vascular DP PULSES (B): 2/4, B/L PT PULSES (B): 2/4, B/L Nails NAILS are: Elongated, overgrown, dystro phic , 1-5 B/L
--- OUTSIDE RECORDS SUMMARY | 2024-12-03 12:44 | XMS_ITS | Patient Health Record ---
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 Role Phone Franklin Baldwin MD Primary Care Provider Unavaila ble Black, Jessica Unavailable [phone] Allergies No Known Allergies Results Component Value Reference Range Notes HEMOGLOBIN A1C (GLYCOHEMOGLO BIN) Reviewed date:04/23/2024 08:19:17 AM Interpretation: Performing Lab: Notes/Report: TOTAL HEMOGLOBIN (HGBA1C) 7.6 HEMOGLOBIN A1C (GLYCOHEMOGLO BIN) Reviewed date:08/03/2024 11:16:45 AM Interpretation: Performing Lab: Notes/Report: HEMOGLOBIN A1C % (HH) 7.6 HEMOGLOBIN A1C (GLYCOHEMOGLO BIN) Reviewed date:11/02/2024 10:24:42 AM Interpretation: Performing Lab: Notes/Report: HEMOGLOBIN A1C % (HH) 7.6 Reason For Referral No Information Medications Medication SIG (Take, Route, Frequency, Duration) Notes Start Date End Date Status Aspirin 81 81 MG 1 tablet Orally Once a day for 30 day(s) Not-Taking Ammonium Lactate 12 % 1 APPLICATION EXTERNALLY TWICE A DAY 30 DAYS for 30 Active Losartan Potassium 25 MG (Prior Auth#:[id number]) Oral for 90 Active Omeprazole 20 MG (Prior Auth#:[id number]) Oral for 90 Active metFORMIN HCl 500 MG (Prior Auth#:[id number]) Oral for 90 Active Rosuvastatin Calcium 5 MG (Prior Auth#:[id number]) Oral for 90 Active dilTIAZem HCl ER Beads 240 MG 1 capsule Orally Once a day for 30 day(s) Active glipiZIDE XL 2.5 MG 1 tablet with breakf ast Orally Once a day for 30 day(s) Active Immunizations Vaccine Route Administration Date Status Comme nts COVID-19 Pfizer BioNTech Vaccine Unknown 07/30/2020 Administered 1st dose 020 Influenza Unknown 03/23/2019 Administered Influenza Unknown 03/22/2022 Administered Influenza Unknown 03/22/2023 Administered Social History Tobacco Use: Social History Observation Description Date Details (start date - stop date) Never Smoker NA - NA Tobacco Use/Smoking Question Answer Notes Are you a: nonsmoker Additional Findings: Tobacco Non-User Ex-cigaret te smoker amount unknown Alcohol Screen Question Answer Notes Did you have a drink contain ing alcohol in the past year? Yes How often did you have a dri nk containing alcohol in the past year? 2 to 4 times a month (2 points) Points 2 Interpretation Negative Tobacco use other than smoking: Question Answer Notes Are you an other tobacco user? No Problems Problem Type SNOMED Code ICD Code Onset Dates Problem Status W/U Status Risk Notes Problem Acquired hammer toe of right foot (0516791498571834 ) Other hammer toe(s) (acquired), right foot (M20.41) Active confirmed Problem Acquired hammer toe of left foot (5646243172546533 ) Other hammer toe(s) (acquired), left foot (M20.42) Active confirmed Problem Polyneuropathy due to type 2 diabetes mellitus (382743753) Type 2 diabetes mellitus with diabetic polyneuropathy (E11.42) Active confirmed Vital Signs Blood pressure diastolic 74 mm Hg 11/02/2024 Height 9uv26tv in 11/02/2024 Blood pressure systolic 140 mm Hg 11/02/2024 Weight 245 lbs 11/02/2024 BMI 35.15 kg/m2 11/02/2024 Procedures Procedure Date Ordered Date Performed Result Body Sit e 77093-FRPF SKIN LESIONS, 2 TO 4 01/16/2024 N/A G5545-OJVFFXEW DYSTROPHIC NAILS ANY # 01/16/2024 N/A 94272-ZHRQ SKIN LESIONS, 2 TO 4 04/23/2024 N/A P6421-RSVDZZOI DYSTROPHIC NAILS ANY # 04/23/2024 N/A 38636-JCBO SKIN LESIONS, 2 TO 4 08/03/2024 N/A G3299-XRBSFHIO DYSTROPHIC NAILS ANY # 08/03/2024 N/A 63580-RZIU SKIN LESIONS, 2 TO 4 11/02/2024 N/A W1884-EFJMLVLL DYSTROPHIC NAILS ANY # 11/02/2024 N/A Encounters Encounter Location Date Provider Diagnosis [address] [address] 01/16/2024 Jessica Black Type 2 diabetes mellitus with diabetic polyneuropathy E11.[address] [address] 04/23/2024 Jessica Black Type 2 diabetes mellitus with diabetic polyneuropathy E11.42 and Xerosis of skin L85.[address] [address] 08/03/2024 Jessica Black Type 2 diabetes mellitus with diabetic polyneuropathy E11.42 ; Other hammer toe(s) (acquired), right foot M20.41 ; Xerosis of skin L85.3 and Other hammer toe(s) (acquired), left foot M20.[address] [address] 11/02/2024 Jessica Black Type 2 diabetes mellitus with diabetic polyneuropathy E11.42 Assessments Encounter Date Diagnosis (ICD Code) Assessment Notes Treatment Notes Treatment Clinical Notes Section Notes 01/16/2024 Type 2 diabetes mellitus with diabetic polyneuropathy (ICD-10 - E11.42) 04/23/2024 Type 2 diabetes mellitus with diabetic polyneuropathy (ICD-10 - E11.42) 08/03/2024 Other hammer toe(s) (acquired), right foot (ICD-10 - M20.41) Patient Educated with: DIABETIC FOOT CARE INSTRUCTIONS. pdf (DIABETIC FOOT CARE INSTRUCTIONS. pdf) 08/03/2024 Type 2 diabetes mellitus with diabetic polyneuropathy (ICD-10 - E11.42) 11/02/2024 Type 2 diabetes mellitus with diabetic polyneuropathy (ICD-10 - E11.42) 08/03/2024 Xerosis of skin (ICD-10 - L85.3) 04/23/2024 Xerosis of skin (ICD-10 - L85.3) 08/03/2024 Other hammer toe(s) (acquired), left foot (ICD-10 - M20.42) 11/02/2024 Other Plan Of Treatment Pending Test Test Name Order Date 52474-SJFADVL NAIL, 1-02/15/2020 22077-SMRTECQ NAIL, 1-02/09/2021 97123-ZWGLDYN NAIL, 1-04/05/2022 33485-DFWBDLO NAIL, 1-04/04/2023 77834-OAUAKOR NAIL, 1-07/01/2023 51022-ETCJYKV NAIL, 1-5 10/03/2023 83432-NLHZ SKIN LESIONS, 2 TO 4 01/16/20 24 93768-VQNZ SKIN LESIONS, 2 TO 4 04/23/20 24 78875-MDKE SKIN LESIONS, 2 TO 4 10/03/19 24 23808-SPEA SKIN LESIONS, 2 TO 4 07/01/20 23 23236-OBDN SKIN LESIONS, 2 TO 4 02/15/20 20 27765-REQA SKIN LESIONS, 2 TO 4 04/05/20 22 72090-INUS SKIN LESIONS, 2 TO 4 02/10/20 21 25796-JPLK SKIN LESIONS, 2 TO 4 08/03/19 25 07167-CDFY SKIN LESIONS, 2 TO 4 11/03/19 25 73255-XVCL SKIN LESIONS, 2 TO 4 04/04/20 23 08167-JFUB NAIL(S) 02/09/2021 38962-IULY NAIL(S) 04/05/2022 C3643-KLQYDPOD DYSTROPHIC NAILS ANY # T0385-GINGMQBG DYSTROPHIC NAILS ANY # B4078-ILWZPNPZ DYSTROPHIC NAILS ANY # G4545-WPRZLSSW DYSTROPHIC NAILS ANY # Next Appt Details Provider Name:Jessica Mclaughlin , 02/08/2025 11:30:00 AM, [address] [facility], [place], [address], Insurance Providers Payer Name Payer Address Payer Phone Subscriber Number Group Number Insured Name Patient Relationship to Insured Coverage Start Date Coverage End Date [facility] 65 Medicare Preferred [address] [place], [place] [id number] Joe Arreguin Self - patient is the insured Medical (General) History Medical History History ICD Code asthma Back,Hip,and Knee pain Chicken pox type II diabetes High blood pressure Joint implants/screws Reflux chronic sinusitis Cataracts Surgical History Surgery Date(Month/Year) knee replacement hip replacement wisdom teeth extraction colonoscopy cataracts 09/2024 Hospitalization History Reason Date(Month/Year[place] [facility] [place]
--- OUTSIDE RECORDS SUMMARY | 2024-12-03 12:44 | XMS_ITS ---
Author Organization [facility] Address [address] [facility] [place] [address] Care Team Providers Care Vp Organizational Development Name Role Phone Franklin Baldwin MD Primary Care Provider Unavaila ble Black, Jessica Unavailable [phone] Allergies No Known Allergies REASON FOR VISIT At Risk Footcare Medications Medication SIG (Take, Route, Frequency, Duration) Notes Start Date End Date Status Aspirin 81 81 MG 1 tablet Orally Once a day for 30 day(s) Not-Taking Ammonium Lactate 12 % 1 APPLICATION EXTERNALLY TWICE A DAY 30 DAYS for 30 Active Losartan Potassium 25 MG (Prior Auth#:[id number]) Oral for 90 Active Omeprazole 20 MG (Prior Auth#:[id number]) Oral for 90 Active metFORMIN HCl 500 MG (Prior Auth#:[id number]) Oral for 90 Active Rosuvastatin Calcium 5 MG (Prior Auth#:[id number]) Oral for 90 Active dilTIAZem HCl ER Beads 240 MG 1 capsule Orally Once a day for 30 day(s) Active glipiZIDE XL 2.5 MG 1 tablet with breakf ast Orally Once a day for 30 day(s) Active Social History Tobacco Use: Social History Observation Description Date Details (start date - stop date) Never Smoker NA - NA Tobacco Use/Smoking Question Answer Notes Are you a: nonsmoker Additional Findings: Tobacco Non-User Ex-cigaret te smoker amount unknown Tobacco use other than smoking: Question Answer Notes Are you an other tobacco user? No Vital Signs Height 7mv76gn in 11/02/2024 Weight 245 lbs 11/02/2024 BMI 35.15 kg/m2 11/02/2024 Blood pressure systolic 140 mm Hg 11/03/19 25 Blood pressure diastolic 74 mm Hg 025 Procedures Procedure Date Ordered Date Performed Result Body Sit e 21755-OIIQ SKIN LESIONS, 2 TO 4 11/02/2024 N/A [id number] DYSTROPHIC NAILS ANY # 11/02/2024 N/A Encounters Encounter Location Date Provider Diagnosis [facility] [address] [address] 11/02/2024 Jessica Mclaughlin Type 2 diabetes mellitus with diabetic polyneuropathy E11.42 Assessments Encounter Date Diagnosis (ICD Code) Assessment Notes Treatment Notes Treatment Clinical Notes Section Notes 11/02/2024 Type 2 diabetes mellitus with diabetic polyneuropathy (ICD-10 - E11.42) 11/02/2024 Other Plan Of Treatment Pending Test Test Name Order Date 30241-DYXD SKIN LESIONS, 2 TO 4 11/03/19 25 [id number] DYSTROPHIC NAILS ANY # Next Appt Details Follow Up: 3 Months, Reason: Provider Name:Jessica Mclaughlin , 02/08/2025 11:30:00 AM, [address] [place] [address], [phone], Procedure Notes * Category Sub-Category Detail Notes Keratoma Treatment Parring or Cutting o f Benign Hyperkeratotic Lesion(s) (-56) 2-4 Lesions - Due to the at risk nature of the patients medical condition as documented in the exam findings, performance of this keratoderma treatment is medically necessary as its management by an unskilled/untrained nonprofessional would put this patients foot and overall health at risk. Therefore, the benign hyperkeratotic lesions, ( 2 ) in total, locations as stated and described in the exam ( SUB MTH (s) , 5 , Right , SUB 5th MTBase , Right ), were pared, and/or cut utilizing a sterile 15 blade, tissue nippers, and/or power dremel instrumentation by the physician of record - 02960 Nail Reduction Nail Reduction (-27) Trimming o f all dystrophic nails - Due to the at risk nature of the patients medical condition as documented in the exam findings, performance of this nail treatment is medically necessary as its management by an unskilled/untrained nonprofessional would put this patients foot and overall health at risk. Therefore, the dystrophic nails, in locations as stated and described in the exam (TA, T1, T2, T3, T4, T5, T6, T7, T8, T9, ), were debrided by the phisician of record to reduce/remove overall nail length and girth, by manual and electrical means with use of a nail nipper and/or dremel, to more viable healthy nail plate or bed tissue - G0127 Progress Notes * Joe LIDOB:[birth year] (69 yo M)Acc No.[id number]:11/02/2024 Progress Note Patient:?Joe LI Provider:?Jessica Mclaughlin DPM :1955???Age:69 Y???Sex:Male Holger e:11/02/2024 Address:[address] [place], [place] [id number] Pcp:Franklin Baldwin MD Subjective: * Chief Complaints: * ???At Risk Footcare * HPI: ???At Risk footcare:?Pt States Last PCP Visit:?Date?09/02/2024 * ROS:?General/Constitutional:?Nausea?denies.?Vomiting?denies.?Hunger Thirst?denies.?Loss appetite?denies.?Chills?denies.?Fatigue?denies.?Fever?denies.?Night Sweats?denies.?Unexplained weight loss?denies.?Unexplained weight gain?denies.?HEENTM:?Dentures?denies.?Dizziness?denies.?Glasses/contacts?admits.?Retinopathy?den ies.?Blurred/double vision?denies.?TMJ?denies.?Discharge/drainage?denies.?Implants?denies.?Sore throat?denies.?Dental implants?denies.?Hard of hearing ?denies.?Difficulty chewing/swallowing/speaking?denies.?Nose bleeds?denies.?Sore mouth?denies.?Respiratory:?On O xygen?denies.?Pneumonia/pleurisy?denies.?Bronchitis?denies.?Emphysema?denies.?Co ughing?denies.?Cough blood?denies.?Shortness of breath?denies.?Wheezing?admits.?Cardiovascular:?Pacemaker?denies.?MVP?denies.?WPW?denies.?CHF?denies.?Heart attack?denies.?Septal defect?denies.?Rapid beat?denies.?Chest pain ?denies.?Atrial Fib.?denies.?Murmur/Palpitations?denies.?Gastrointestinal:?Hemorrhoids?denies.?Stomach/Abdominal pain?denies.?Dark blood stool?denies.?Irritable bowel ?denies.?Constipation?denies.?Diarrhea?denies.?Hematology:?Swelling?denies.?Clots?denies.?Varicose Veins?denies.?Bruising?denies.?Bleeding problem?denies.?Genitourinary:?Blood urine?denies.?Frequent/Painfu/urination/bladder control?denies.?Kidney stones?denies.?Infection (UTI)?denies.?Nephropathy?denies.?sex trans dis (STD)?denies.?Prostate?denies.?Musculoskeletal:?Hammertoes?denies.?Bunions?denies.?Back Pain?denies.?Muscle Cramps/ Resting?admits.?Muscle cramps / walking?denies.?Generalized aches and pains?admits.?Weakness?denies.?Integ.:?Dowling?denies.?Scars?denies.?Corns/calluses?, admits.?Ingrown nails?denies.?Painful nails?denies.?Open Sores?denies.?Rashes?denies.?Neurologic:?Difficulty sleeping?denies.?Brain disorder?denies.?Numbness?denies.?Balance t rouble?denies.?Confusion?denies.?Fainting/blackouts?denies.?Tingling?denies.?Hugo mors?denies.? * Medical History:? * Surgical History:?knee repla cement hip replacement wisdom teeth extraction colonoscopy cataracts 09/2024 * Hospitalization/Major Diagno stic Procedure:?[facility]-Dehydration 10/11 * Family History:?Mother: dece ased, diagnosed with Diabetic - NIDDM.?Father: , diagnosed with Diabetic - NIDDM, Unspecified essential hypertension, Unspecified cerebral artery occlusion with cerebral infarction, Family history of arthritis.?Siblings: diagnosed with Unspecified heart disease.? * Social History:?Tobacco Use:?Tobacco Use/Smoking?Are you a:?nonsmoker ?Additional Findings: Tobacco Non-User?Ex-cigarette smoker amount unknown ?Tobacco use other than smoking?Are you an other tobacco user??No ???Miscellaneous:?Caffeine: yes, 3-5 cups per day,. ?Children: yes, 1 son, 2 daughters. ?Exercise: yes, walking. ?Marital status: . 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 * Medications:?TakingglipiZIDE XL 2.5 MG Tablet Extended Release 24 Hour 1 tablet with breakfast Orally Once a day dilTIAZem HCl ER Beads 240 MG Capsule Extended Release 24 Hour 1 capsule Orally Once a day Rosuvastatin Calcium 5 MG Tablet (Prior Auth#:[id number]) Oral metFORMIN HCl 500 MG Tablet (Prior Auth#:[id number]) Oral Omeprazole 20 MG Capsule Delayed Release (Prior Auth#:[id number]) Oral Losartan Potassium 25 MG Tablet (Prior Auth#:[id number]) Oral Ammonium Lactate 12 % Cream 1 APPLICATION EXTERNALLY TWICE A DAY 30 DAYS Taking glipiZIDE XL 2.5 MG Tablet Extended Release 24 Hour 1 tablet with breakfast Orally Once a day Taking dilTIAZem HCl ER Beads 240 MG Capsule Extended Release 24 Hour 1 capsule Orally Once a day Taking Rosuvastatin Calcium 5 MG Tablet (Prior Auth#:[id number]) Oral Taking metFORMIN HCl 500 MG Tablet (Prior Auth#:[id number]) Oral Taking Omeprazole 20 MG Capsule Delayed Release (Prior Auth#:[id number]) Oral Taking Losartan Potassium 25 MG Tablet (Prior Auth#:[id number]) Oral Taking Ammonium Lactate 12 % Cream 1 APPLICATION EXTERNALLY TWICE A DAY 30 DAYS Not-Taking/PRNAspirin 81 81 MG Tablet Delayed Release 1 tablet Orally Once a day Medication List reviewed and reconciled with the patientNot-Taking/PRN Aspirin 81 81 MG Tablet Delayed Release 1 tablet Orally Once a day Medication List reviewed and reconciled with the patient * Allergies:?N.K.D.A.yes[Aller gies Verified] Objective: * Vitals:?Ht: 8zu00fz, Wt:245, BMI:35.15, Shoe size: 10, BP:140/74mm Hg, BS: 173, Ht-cm: 177.8 cm, Wt-k.13 kg. * ???Past Orders: ???Lab:HEMOGLOBIN A1C (GLYCO HEMOGLOBIN) (Order Date - 08/22/2024) (Collection Date & Time - 08/22/2024 10:24 AM) ? Value Reference Range ?HEMOGLOBIN A1C % (HH) 7.6 * Examination: ???Ophthalmology Referral: ?DIABETES EYE EXAM?Procedure Performed:?Yes ?Date of Exam Performed?09/19/2024 ?Findings of Diabetic Eye Exam:?no retinopathy?General Examination: ?GENERAL APPEARANCE:?Reveals a pleasant, alert, well nourished, well- developed, well hydrated individual, who demonstrates proper attention to hygiene/body habitus, and is in no acute distress, Pt serves as own historian for office visit today.?ORIENTED:?person, place, and time.?Neurological: ?SENSORY:?Neurological exam demonstrates, reduced light touch sensation, reduced sharp/dull pin prick discrimination , reduced vibration sensation, 5.07 monofilament test performed at plantar aspects of 5 varied sites per foot shows sensation, absent, B/L, Pt relates anesthesia and tingling.?Nails: ?NAILS are:?Elongated, overgrown, dystrophic, TA, T1, T2, T3, T4, T5, T6, T7, T8, T9.?Dermatologic: ?SKIN FINDINGS:?Skin exam reveals Keratotic lesion(s) located at, SUB MTH (s) , 5 , Right , SUB 5th MTBase , Right?.?Vascular: ?DP PULSES (B):?2/4, B/L.?PT PULSES (B):?2/4, B/L.? Assessment: * Assessment: 1.?Type 2 diabetes mellitus with diabetic polyneuropathy - E11.42 (Primary)??? Plan: * Treatment: * Procedures:?Keratoma Treatment:?Parring or Cutting of Benign Hyperkeratotic Lesion(s)?(-56) 2-4 Lesions - Due to the at risk nature of the patients medical condition as documented in the exam findings, performance of this keratoderma treatment is medically necessary as its management by an unskilled/untrained nonprofessional would put this patients foot and overall health at risk. Therefore, the benign hyperkeratotic lesions, ( 2 ) in total, locations as stated and described in the exam ( SUB MTH (s) , 5 , Right , SUB 5th MTBase , Right ), were pared, and/or cut utilizing a sterile 15 blade, tissue nippers, and/or power dremel instrumentation by the physician of record - 88550.?Nail Reduction:?Nail Reduction?(-27) Trimming of all dystrophic nails - Due to the at risk nature of the patients medical condition as documented in the exam findings, performance of this nail treatment is medically necessary as its management by an unskilled/untrained nonprofessional would put this patients foot and overall health at risk. Therefore, the dystrophic nails, in locations as stated and described in the exam (TA, T1, T2, T3, T4, T5, T6, T7, T8, T9, ), were debrided by the phisician of record to reduce/remove overall nail length and girth, by manual and electrical means with use of a nail nipper and/or dremel, to more viable healthy nail plate or bed tissue - G0127.? * Procedure Codes:?79281 TRIM SKIN LESIONS, 2 TO 4, Modifiers: XS G0127 TRIMMING DYSTROPHIC NAILS ANY #, Modifiers: XS * Preventive Medicine:? ??Screening/Special Tests:?Fall Risk?Screening:?No falls in the past year ?FALLS: Screening for Future Fall Risk?Have you had any falls with injury in the past year??No * Follow Up:?3 Months * Images: * Sign off status: Completed true * Provider:?Jessica Mclaughlin DPM Date:?2024 Generated for Norman maots/Rush/Pete on:?12/03/2024 12:44 PM EDT History and Physical Notes * HPI (History of Present Illness) Category Sub-Category Detail Notes Category Not es At Risk footcare Pt States Last PCP Visit: Date: 5 Examination Category Sub-Category Detail Notes Category Not [...] Right , SUB 5th MTBase , Right General Examination GENERAL APPEARANCE: Reveals a pleasant, alert, well nourished, well-developed, well hydrated individual, who demonstrates proper attention to hygiene/body habitus, and is in no acute distress, Pt serves as own historian for office visit today ORIENTED: person, place, and t sharon Ophthalmology Referral DIABETES EYE EXAM Procedure Perform ed:: Yes ?Date of Exam Performed: 09/19/2024 Findings of Diabetic Eye Exam:: no retin opathy Vascular DP PULSES (B): 2/4, B/L PT PULSES (B): 2/4, B/L Nails NAILS are: Elongated, overg rown, dystrophic, TA, T1, T2, T3, T4, T5, T6, T7, T8, T9
--- OUTSIDE RECORDS SUMMARY | 2024-12-03 12:44 | XMS_ITS ---
Author Organization [facility] Address [address] [place] [address] Care Team Providers Care Dental Equipment Repairer Name Role Phone Franklin Baldwin MD Primary Care Provider Unavaila ble Black, Jessica Unavailable [phone] Allergies No Known Allergies REASON FOR VISIT At Risk Footcare, Skin problem(s), Toe Irritation Medications Medication SIG (Take, Route, Frequency, Duration) Notes Start Date End Date Status Ammonium Lactate 12 % 1 application Externally Twice a day for 30 days Active Ammonium Lactate 12 % 1 application Externally to affected areas of skin to feet except for between the toes Twice a day for 30 days Active Omeprazole 20 MG (Prior Auth#:[id number]) Oral for 90 Active Losartan Potassium 25 MG (Prior Auth#:[id number]) Oral for 90 Active Aspirin 81 81 MG 1 tablet Orally Once a day for 30 day(s) Not-Taking glipiZIDE XL 2.5 MG 1 tablet with breakf ast Orally Once a day for 30 day(s) Active dilTIAZem HCl ER Beads 240 MG 1 capsule Orally Once a day for 30 day(s) Active Rosuvastatin Calcium 5 MG (Prior Auth#:[id number]) Oral for 90 Active metFORMIN HCl 500 MG (Prior Auth#:[id number]) Oral for 90 Active Social History Tobacco Use: Social History Observation Description Date Details (start date - stop date) Never Smoker NA - NA Tobacco Use/Smoking Question Answer Notes Are you a: nonsmoker Additional Findings: Tobacco Non-User Ex-cigaret te smoker amount unknown Tobacco use other than smoking: Question Answer Notes Are you an other tobacco user? No Vital Signs Height 1ef53lg in 08/03/2024 Weight 249 lbs 08/03/2024 BMI 35.72 kg/m2 08/03/2024 Blood pressure systolic 140 mm Hg 08/03/19 25 Blood pressure diastolic 74 mm Hg 025 Procedures Procedure Date Ordered Date Performed Result Body Sit e 76302-UUCU SKIN LESIONS, 2 TO 4 08/03/2024 N/A P7263-CXYGJYWJ DYSTROPHIC NAILS ANY # 08/03/2024 N/A Encounters Encounter Location Date Provider Diagnosis [facility] [address] [place] [address] 08/03/2024 Jessica Mclaughlin Type 2 diabetes mellitus with diabetic polyneuropathy E11.42 ; Other hammer toe(s) (acquired), right foot M20.41 ; Xerosis of skin L85.3 and Other hammer toe(s) (acquired), left foot M20.42 Assessments Encounter Date Diagnosis (ICD Code) Assessment Notes Treatment Notes Treatment Clinical Notes Section Notes 08/03/2024 Type 2 diabetes mellitus with diabetic polyneuropathy (ICD-10 - E11.42) 08/03/2024 Other hammer toe(s) (acquired), right foot (ICD-10 - M20.41) Patient Educated with: DIABETIC FOOT CARE INSTRUCTIONS. pdf (DIABETIC FOOT CARE INSTRUCTIONS. pdf) 08/03/2024 Xerosis of skin (ICD-10 - L85.3) 08/03/2024 Other hammer toe(s) (acquired), left foot (ICD-10 - M20.42) Plan Of Treatment Treatment Notes Assessment Notes Other hammer toe(s) (acquired), right fo ot Patient Educated with: DIABETIC FOOT CARE INSTRUCTIONS.pdf (DIABETIC FOOT CARE INSTRUCTIONS.pdf) Pending Test Test Name Order Date 98426-ECJZ SKIN LESIONS, 2 TO 4 08/03/19 25 T0571-BFVQLBBG DYSTROPHIC NAILS ANY # Next Appt Details Follow Up: 3 Months, Reason: Provider Name:Jessica Mclaughlin , 02/08/2025 11:30:00 AM, [address] [place] [address], [phone], Procedure Notes * Category Sub-Category Detail Notes [...] instrumentation by the physician of record - 00507 Nail Reduction Nail Reduction (-27) Trimming o [...] Notes * Joe LIDOB:[birth year] (69 yo M)Acc No.[id number]:08/03/2024 Progress Note Patient:?Joe LI Provider:Gumaro Mclaughlin DPM :1955???Age:69 Y???Sex:Male Holger e:08/03/2024 Address:[address] [place] [address] [place], [place], [place] Pcp:Franklin Baldwin MD Subjective: * Chief Complaints: * ???At Risk FootcareSkin prob maxime(s)Toe Irritation * HPI: ???At Risk footcare:?Pt States Last PCP Visit:?Date?07/20/2024 ???Skin problems:?Nature:?dryness , scaling.?Location:?B/L .?Duration:?several days.?Course:?, improved, at 80 %.?Treatments:?medication ( AM Lactin ), admits intermittent adherence to recommended application.?Toe pain:?Location:?B/L feet.?Duration:?several years.?Course:?worse.?Aggravated by:?shoes, any pressure.?Treatments:?change in shoes.? * ROS:?General/Constitutional:?Nausea?denies.?Vomiting?denies.?Hunger Thirst?denies.?Loss appetite?denies.?Chills?denies.?Fatigue?denies.?Fever?denies.?Night Sweats?denies.?Unexplained weight loss?denies.?Unexplained weight gain?denies.?HEENTM:?Dentures?denies.?Dizziness?denies.?Glasses/contacts?admits.?Retinopathy?den ies.?Blurred/double vision?denies.?TMJ?denies.?Discharge/drainage?denies.?Implants?denies.?Sore throat?denies.?Dental implants?denies.?Hard of hearing ?denies.?Difficulty chewing/swallowing/speaking?denies.?Nose bleeds?denies.?Sore mouth?denies.?Respiratory:?On O xygen?denies.?Pneumonia/pleurisy?denies.?Bronchitis?denies.?Emphysema?denies.?Co ughing?denies.?Cough blood?denies.?Shortness of breath?denies.?Wheezing?admits.?Cardiovascular:?Pacemaker?denies.?MVP?denies.?WPW?denies.?CHF?denies.?Heart attack?denies.?Septal defect?denies.?Rapid beat?denies.?Chest pain ?denies.?Atrial Fib.?denies.?Murmur/Palpitations?denies.?Gastrointestinal:?Hemorrhoids?denies.?Stomach/Abdominal pain?denies.?Dark blood stool?denies.?Irritable bowel ?denies.?Constipation?denies.?Diarrhea?denies.?Hematology:?Swelling?denies.?Clots?denies.?Varicose Veins?denies.?Bruising?denies.?Bleeding problem?denies.?Genitourinary:?Blood urine?denies.?Frequent/Painfu/urination/bladder control?denies.?Kidney stones?denies.?Infection (UTI)?denies.?Nephropathy?denies.?sex trans dis (STD)?denies.?Prostate?denies.?Musculoskeletal:?Hammertoes?denies.?Bunions?denies.?Back Pain?denies.?Muscle Cramps/ Resting?admits.?Muscle cramps / walking?denies.?Generalized aches and pains?admits.?Weakness?denies.?Integ.:?Dowling?denies.?Scars?denies.?Corns/calluses?denies.?Ingrown nails?denies.?Painful nails?denies.?Open Sores?denies.?Rashes?denies.?Neurologic:?Difficulty sleeping?denies.?Brain disorder?denies.?Numbness?denies.?Balance t rouble?denies.?Confusion?denies.?Fainting/blackouts?denies.?Tingling?denies.?Hugo [...] than smoking?Are you an other tobacco user??No * Medications:?TakingglipiZIDE XL 2.5 MG Tablet Extended Release 24 Hour 1 tablet with breakfast Orally Once a day dilTIAZem HCl ER Beads 240 MG Capsule Extended Release 24 Hour 1 capsule Orally Once a day Rosuvastatin Calcium 5 MG Tablet (Prior Auth#:[id number]) Oral metFORMIN HCl 500 MG Tablet (Prior Auth#:[id number]) Oral Omeprazole 20 MG Capsule Delayed Release (Prior Auth#:[id number]) Oral Losartan Potassium 25 MG Tablet (Prior Auth#:[id number]) Oral Ammonium Lactate 12 % Cream 1 application Externally Twice a day Ammonium Lactate 12 % Cream 1 application Externally to affected areas of skin to feet except for between the toes Twice a day Taking glipiZIDE XL 2.5 MG Tablet Extended Release 24 Hour 1 tablet with breakfast Orally Once a day Taking dilTIAZem HCl ER Beads 240 MG Capsule Extended Release 24 Hour 1 capsule Orally Once a day Taking Rosuvastatin Calcium 5 MG Tablet (Prior Auth#:[id number]) Oral Taking metFORMIN HCl 500 MG Tablet (Prior Auth#:[id number]) Oral Taking Omeprazole 20 MG Capsule Delayed Release (Prior Auth#:[id number]) Oral Taking Losartan Potassium 25 MG Tablet (Prior Auth#:[id number]) Oral Taking Ammonium Lactate 12 % Cream 1 application Externally Twice a day Taking Ammonium Lactate 12 % Cream 1 application Externally to affected areas of skin to feet except for between the toes Twice a day Not- Taking/PRNAspirin 81 81 MG Tablet Delayed Release 1 tablet Orally Once a day Medication List reviewed and reconciled with the patientNot-Taking/PRN Aspirin 81 81 MG Tablet Delayed Release 1 tablet Orally Once a day Medication List reviewed and reconciled with the patient * Allergies:?N.K.D.A.yes[Aller gies Verified] Objective: * Vitals:?Ht: 5qb10wv, Wt:249, BMI:35.72, Shoe size: 10, BP:140/74mm Hg, BS: 186, Ht-cm: 177.8 cm, Wt-k.94 kg. * ???Past Orders: ???Lab:HEMOGLOBIN A1C (GLYCO HEMOGLOBIN) (Order Date - 06/21/2024) (Collection Date & Time - 06/21/2024 11:16 AM) ? Value Reference Range ?HEMOGLOBIN A1C % (HH) 7.6 * Examination: ???Ophthalmology Referral: ?DIABETES EYE EXAM?Procedure Performed:?Yes ?Date of Exam Performed?05/22/2024 ?Findings of Diabetic Eye Exam:?no retinopathy?General Examination: ?GENERAL APPEARANCE:?Reveals a pleasant, alert, well nourished, well- developed, well hydrated individual, who demonstrates proper attention to hygiene/body habitus, and is in no acute distress, Pt serves as own historian for office visit today.?ORIENTED:?person, place, and time.?FOOT EXAM:?Lower Extremity Neurological Exam performed:?Yes ?Visual exam of foot performed:?Yes ?Date?08/03/2024 ?Sensory testing performed:?sensations diminished ?Sensory and motor testing performed:?sensations diminished ?Pedal pulse taking performed:?2+ ?Footwear Evaluation?Footwear Evaluation performed:?Yes?Neurological: ?SENSORY:?Neurological exam demonstrates, reduced light touch sensation, [...] in a stocking fashion, no fissure(s) present, B/L, approximately 80? percent LESS.?Vascular: ?DP PULSES (B):?2/4, B/L.?PT PULSES (B):?2/4, B/L.?Orthopedic: ?DIGITAL DEFORMITIES:?Digital contracture, PIPJ, 2-5 B/L, incompl-reducible to push-up test, no over, nor underlapping,?there is?evidence of shoe producing skin irritation.?FOOTWEAR:?worn, non-supportive, shoe gear properties exacerbate patient's foot/toe deformity.? Assessment: * Assessment: 1.?Other hammer toe(s) (acqu ired), right foot - M20.41 (Primary)???Specify :Chronic problem, Worse (4),Rx Management (4)???2.?Type 2 diabetes mellitus with diabetic polyneuropathy - E11.42???3.?Xerosis of skin - L85.3???Specify :Response to treatment - Improvement???4.?Other hammer toe(s) (acquired), left foot - M20.42???Specify :Chronic problem, Worse (4),Rx Management (4)??? Plan: * Treatment: 2.?Type 2 diabetes mellitus with diabetic polyneuropathy?Procedure: 97044-GSGC SKIN LESIONS, 2 TO 4 ?Procedure: Z1998-BRMTHOFH DYSTROPHIC NAILS ANY # * Procedures:?Keratoma Treatment:?Parring or Cutting of Benign [...] instrumentation by the physician of record - 54178.?Nail Reduction:?Nail Reduction?(-27) Trimming of all dystrophic nails [...] or bed tissue - G0127.? * Procedure Codes:?93643 TRIM SKIN LESIONS, 2 TO 4, Modifiers: XS G0127 TRIMMING DYSTROPHIC NAILS ANY #, Modifiers: XS * Preventive Medicine:? ??Counseling:?Discussion:?-14: Office or other outpatient visit for the evaluation and management of an established patient, which required a medically appropriate history and/or examination and MODERATE level of DECISION MAKING for: 1 OR MORE CHRONIC PROBLEM(S) THATS WORSENING, 2 STABLE CHRONIC PROBLEMS, A NEWLY DIAGNOSED PROBLEM WITH UNCERTAIN PROGNOSIS, AN ACUTE COMPLICATED INJURY WITH MULTIPLE TREATMENT OPTIONS, OR AN ACUTE PROBLEM WITH ACCOMPANYING SYSTEMIC SYMPTOMS, THAT POSE(S) A MODERATE RISK OF MORBIDITY. THIS CONDITION MAY ALSO INCLUDE RX DRUG MANAGEMENT, OR A DECISON FOR MINOR SURGERY. The visit on the day of the [...] have encouraged the patient to call the office.?Digital Treatment:?HT- I explained to the patient the possible etiologies of Hammertoes, including genetics/foot type/shoegear/activity level/exercise routine and the risks/benefits of all the different treatment options for their pain including: No treatment at all, Rest, Ice, New/supportive/wider/deeper Shoe gear, Digital Padding/Strapping/Taping/Bracing/Gel protective sleeves, Foot/Ankle AFO Bracing, Stretching exercises, Deep Tissue Massage, Arch support/shoe inserts with splay metatarsal padding, and Custom orthoses. I insisted that any digital devices be removed daily and not worn overnight for safety. The patient is to carefully examine the toes daily for any skin irritation while using any splinting or padding device. The advantages and disadvantages of each option were discussed and the patients questions re: shoe gear, padding, custom vs prefabricated inserts, activity level, and consistency in home treatment regimens for optimal success were answered to their verbally confirmed satisfaction.?Shoe Gear Counseling:?SHOE Rx - The patient was counseled in great detail on their muscoloskeletal foot and toe deformities which coincided with the dermatological presentations visualized on exam. We discussed how their deformities put the integrity of their feet at risk for potential pedal complications which makes the accomidative diabetic shoes and cutomizable inserts medically necessary. We discussed the different shoe and insert treatment types and options, as well as the important advantages for adhering to regularly wearing these accomidative devices daily. The patient was made aware of the fact that a failure to abide by these recommedations may be deleterious to their foot health as they are able to prevent many pedal complications such as skin irritation, skin ulceration, infection, and even loss of toe/foot/leg/or life. Time was also spent with the patient dispensing and discussing proper diabetic footcare techniques including daily skin moisturization, daily foot inspection for any interruption in skin integrity including open lesions, or sign of infection such as redness/malodor/drainage/swelling. Also discussed and recommended were procedures regarding daily shoe inspection for the presence of internal foreign bodies as well as any visualized irregular shoe or insert wear. Patient questions re: shoes, inserts, and self foot inspections were answered to their satisfaction as the patient verbally confirmed a full understanding of the above information. , The patient deferred recommended diabetic shoes with heat moled inserts, Recommend supportive running shoes for patient, discussed various shoe brands including Youssef, Asics, New Balance, Sau[employer]y. Discussed types of shoes to avoid for patients foot type..?Xerosis:?Given recent successful results to treatment, The patient is to cont the rx cream as directed and recomm. pt apply daily.? ??Screening/Special Tests:?Fall Risk?Screening:?No falls in the past year ?FALLS: Screening for Future Fall Risk?Have you had any falls with injury in the past year??No * Follow Up:?3 Months * Images: * Sign off status: Completed true * Provider:?Jessica Mclaughlin DPM Date:?2024 Generated for Norman matos/Rush/Milenaitting on:?12/03/2024 12:44 PM EDT History and Physical Notes * HPI (History of Present Illness) Category Sub-Category Detail Notes Category Not es Toe pain Location: B/L feet Duration: several years Course: worse Aggravated by: shoes, any pressure Treatments: change in shoes Skin problems Nature: dryness , scaling Location: B/L Duration: several days Course: , improved, at 80 % Treatments: medication ( AM Lact in ), admits intermittent adherence to recommended application At Risk footcare Pt States Last PCP [...] in a stocking fashion, no fissure(s) present, B/L, approximately 80 percent LESS Orthopedic FOOTWEAR EVALUATION: worn, non-s upportive, shoe gear properties exacerbate patient's foot/toe deformity DIGITAL DEFORMITIES: Digital contracture , PIPJ, 2-5 B/L, incompl-reducible to push-up test, no over, nor underlapping, there is evidence of shoe producing skin irritation General Examination GENERAL APPEARANCE: Reveals a pleasant, alert, well nourished, well-developed, well hydrated individual, who demonstrates proper attention to hygiene/body habitus, and is in no acute distress, Pt serves as own historian for office visit today FOOT EXAM: Lower Extremity Neurological Exa m performed:: Yes Visual exam of foot performed:: Yes Date: 08/03/2024 Sensory testing performed:: sensations d iminished Sensory and motor testing performed:: se nsations diminished Pedal pulse taking performed:: 2+ ORIENTED: person, place, and t sharon Footwear Evaluation Footwear Evaluation performe d:: Yes Ophthalmology Referral DIABETES EYE EXAM Procedure Perform ed:: Yes ?Date of Exam Performed: 05/22/2024 Findings of Diabetic Eye Exam:: no retin opathy Vascular DP PULSES (B): 2/4, B/L PT PULSES (B): 2/4, B/L Nails NAILS are: Elongated, overg rown, dystrophic, TA, T1, T2, T3, T4, T5, T6, T7, T8, T9
[2024-12-03 14:20] LABS: MANUAL DIFF FLAG NO
[2024-12-03 14:28] LABS: Basophils Absolute Auto 0.1 X10*3/uL (0.0-0.2); Basophils Percent Auto 0.8 % (0-2); Eosinophils Absolute Auto 0.4 X10*3/uL (0.0-0.4); Hematocrit 46.5 % (42.0-52.0); Hemoglobin 15.5 g/dl (14.0-18.0); Imm Gran Abs Auto 0.03 X10*3/uL (0.00-0.03); Imm Gran Pct Auto 0.3 % (0.0-0.4); Lymphocytes Absolute Auto 2.3 X10*3/uL (1.2-4.9); Lymphocytes Percent Auto 25.3 % (20-40); Mean Corpuscular HGB Conc 33.3 g/dl (31.0-36.0); Mean Corpuscular Hemoglobin 29.1 pg (27.0-33.0); Mean Corpuscular Volume 87.4 fL (80.0-98.0); Mean Platelet Volume 11.1 fL (9.4-12.4); Monocytes Absolute Auto 0.7 X10*3/uL (0.1-1.2); Monocytes Percent Auto 7.5 % (2-11); Neutrophils Absolute Auto 5.7 x10*3/uL (2.0-8.3); Neutrophils Percent Auto 62.1 % (45-73); Platelet Count 302 X10*3/uL (160-400); Red Blood Count 5.32 X10*6/uL (4.60-5.80); Red Cell Distribution Width 13.5 % (11.0-16.0); White Blood Count 9.2 X10*3/uL (4.8-10.8)
[2024-12-03 14:40] LABS: Estimated Average Glucose 171 mg/dL; Hemoglobin A1C 236.0525 umol/L; Hemoglobin A1c % 7.6 % (<6.0); Total Hemoglobin (HGBA1C) 3974.4477 umol/L
[2024-12-03 15:01] LABS: Alanine Aminotransferase 54 U/L (0-40); Albumin Level 4.5 g/dL (3.5-5.0); Anion Gap 16 (12-20); Aspartate Amino Transferase 32 U/L (5-37); Bilirubin Total 0.4 mg/dL (0.0-1.0); Blood Urea Nitrogen 20 mg/dL (9-16); Calcium 9.3 mg/dL (8.4-10.2); Carbon Dioxide 23 mmol/L (22-29); Chloride 105 mmol/L (96-108); Estimated Glomerular Filt Rate > 60; Glucose Random 117 mg/dL (60-115); Potassium 4.1 mmol/L (3.3-5.1); Sodium 140 mmol/L (135-145); Total Protein 7.9 g/dL (6.5-8.0)
[2024-12-03 15:11] LABS: Microalbum/Creatinine Ratio Ur 14.1 ug/mg cr (<30)
[2024-12-03 15:53] LABS: Alkaline Phosphatase 82 U/L (39-117)
== END 2024-12-03 11:40 | disposition home or self-care (01) ==
LOC: HO.WFDLDS 11:39
PROVIDERS: Visit Provider Internal Medicine
DX: E11.9 Type 2 diabetes mellitus without complications (principal)
CPT/HCPCS: 36415; 80053; 82043; 82570; 83036; 85025

== ENCOUNTER 2024-12-18 13:05 | Outpatient (AMB) | payer MEDICARE, SELFPAY ==
--- OUTSIDE RECORDS SUMMARY | 2024-12-18 13:14 | XMS_ITS | Patient Health Record ---
Author Organization [facility] Address [address] [facility] [place] [address] Care Team Providers Care Test Engine Evaluator Name Role Phone Franklin Baldwin MD Primary Care Provider Unavaila ble Black, Jessica Unavailable [phone] Allergies No Known Allergies Results Component Value [...] 30 Active Losartan Potassium 25 MG (Prior Auth#:[id number]) Oral for 90 Active Omeprazole 20 MG (Prior Auth#:[id number]) Oral for 90 Active metFORMIN HCl 500 MG (Prior Auth#:[id number]) Oral for 90 Active Rosuvastatin Calcium 5 MG (Prior Auth#:[id number]) Oral for 90 Active dilTIAZem HCl ER [...] Problem Acquired hammer toe of right foot (4857737845279527 ) Other hammer toe(s) (acquired), right foot (M20.41) Active confirmed Problem Acquired hammer toe of left foot (1240268434632274 ) Other hammer toe(s) (acquired), left foot (M20.42) Active confirmed Problem Polyneuropathy due to type 2 diabetes mellitus (678865330) Type 2 diabetes mellitus with diabetic polyneuropathy (E11.42) Active confirmed Vital Signs Blood pressure diastolic 74 mm Hg 11/02/2024 Height 4la10th in 11/02/2024 Blood pressure systolic 140 mm Hg 11/02/2024 Weight 245 lbs 11/02/2024 BMI 35.15 kg/m2 11/02/2024 Procedures Procedure Date Ordered Date Performed Result Body Sit e 35817-IZIP SKIN LESIONS, 2 TO 4 01/16/2024 N/A B2604-DAQAVROR DYSTROPHIC NAILS ANY # 01/16/2024 N/A 85920-TWFP SKIN LESIONS, 2 TO 4 04/23/2024 N/A Y2362-NLQCFONM DYSTROPHIC NAILS ANY # 04/23/2024 N/A 12241-MYKU SKIN LESIONS, 2 TO 4 08/03/2024 N/A F3501-TYOVZOCN DYSTROPHIC NAILS ANY # 08/03/2024 N/A 78658-UWDR SKIN LESIONS, 2 TO 4 11/02/2024 N/A A0148-IQABMVHP DYSTROPHIC NAILS ANY # 11/02/2024 N/A Encounters Encounter Location Date Provider Diagnosis [address] [address] 01/16/2024 Jessica Black Type 2 diabetes mellitus with diabetic polyneuropathy E11.[address] [address] 04/23/2024 Jessica Black Type 2 diabetes mellitus with diabetic polyneuropathy E11.42 and Xerosis of skin L85.[address] [address] 08/03/2024 Jessica Black Type 2 diabetes mellitus with diabetic polyneuropathy E11.42 ; Other hammer toe(s) (acquired), right foot M20.41 ; Xerosis of skin L85.3 and Other hammer toe(s) (acquired), left foot M20.[address] [address] 11/02/2024 Jessica Black Type 2 diabetes mellitus [...] Treatment Pending Test Test Name Order Date 69609-SAALMAB NAIL, 1-02/15/2020 67281-TQARCKU NAIL, 1-02/09/2021 74368-PQZPNDK NAIL, 1-04/05/2022 87504-BGQBXZO NAIL, 1-04/04/2023 81611-EOLZZEP NAIL, 1-07/01/2023 00816-URPYHYN NAIL, 1-5 10/03/2023 55571-NVRI SKIN LESIONS, 2 TO 4 01/16/20 24 05030-BUGU SKIN LESIONS, 2 TO 4 04/23/20 24 28126-IDTQ SKIN LESIONS, 2 TO 4 10/03/19 24 41539-YUCA SKIN LESIONS, 2 TO 4 07/01/20 23 17489-NTYY SKIN LESIONS, 2 TO 4 02/15/20 20 54648-GORD SKIN LESIONS, 2 TO 4 04/05/20 22 22310-SXNT SKIN LESIONS, 2 TO 4 02/10/20 21 14828-CHSI SKIN LESIONS, 2 TO 4 08/03/19 25 35153-WJVI SKIN LESIONS, 2 TO 4 11/03/19 25 94032-DFNW SKIN LESIONS, 2 TO 4 04/04/20 23 48092-OOOZ NAIL(S) 02/09/2021 38926-LPKZ NAIL(S) 04/05/2022 Q7569-MXPBBMGA DYSTROPHIC NAILS ANY # I1314-MGWNWOEF DYSTROPHIC NAILS ANY # Y0218-ULFSBRNZ DYSTROPHIC NAILS ANY # A4889-WRXOJLKN DYSTROPHIC NAILS ANY # Next Appt Details Provider Name:Jessica Mclaughlin , 02/08/2025 11:30:00 AM, [address] [facility], [place], [address], Insurance Providers Payer Name Payer Address Payer Phone Subscriber Number Group Number Insured Name Patient Relationship to Insured Coverage Start Date Coverage End Date [facility] 65 Medicare Preferred [address] [place], [place] [phone] [id number] Joe Arreguin Self - patient is the insured Medical (General) History Medical History History ICD Code asthma Back,Hip,and Knee pain Chicken pox type II diabetes High blood pressure Joint implants/screws Reflux chronic sinusitis Cataracts Surgical History Surgery Date(Month/Year) knee replacement hip replacement wisdom teeth extraction colonoscopy cataracts 09/2024 Hospitalization History Reason Date(Month/Year) [facility]-Dehydration 10/11
--- NOTE | 2024-12-18 13:15 | A.OFFPC_ITS ---
Vital Signs 12/18/24 13:20 12/18/24 13:48 Height 5 ft 11 in Weight 110.223 kg BMI 33.9 BP 152/78 H 146/84 H Respiration 16 Pulse 99 Pulse Source Pulse Oximeter Temp 97.3 F Temp Source Temporal Artery Scan Pulse Oximetry (%) 99 Oxygen Delivery Method Room Air Intake Visit Reasons: Routine Wallcovering Hanger Required: No Accompanied by: Self / Same As Patient Allergies No Known Allergies [No Known Allergies*] Allergy (Verified 12/18/24 13:17) Medication List - Last Reconciled 12/18/24 by PAOLA Mendez albuterol sulfate 90 mcg/actuation 2 puffs inhalation Q4H PRN diltiazem HCl CD 1 cap PO QAM glipizide ER 5 mg PO DAILY losartan 50 mg PO DAILY metformin 1,000 mg PO QAM metformin 500 mg PO QPM omeprazole 1 cap PO DAILY 30 days rosuvastatin 10 mg PO BEDTIME HPI HPI Comments History of Present Illness Details 69-year-old male with history of type 2 diabetes, hypertension, hyperlipidemia, GERD and class 1 obesity presents to the office today for management of chronic conditions and to establish care. He has no new concerns today. Type 2 diabetes-last hemoglobin A1c 7.6%. Has diabetic cataracts, recently underwent extraction bilaterally, and neuropathy that is not overly bothersome. Currently compliant with metformin 1000 mg every morning and 500 mg every evening. Also taking glipizide 2.5 mg ER. Currently fasting glucose typically ranges 150-190. He is working to improve diet. Hypertension-initially uncontrolled 152/78, 146/84. He is currently taking losartan 25 mg daily and diltiazem. He does not follow low-sodium diet. Hyperlipidemia-last LDL 78, total cholesterol 145. Compliant with rosuvastatin 10 mg daily. Obesity-he is working to improve his diet. Not currently exercising. Reports this is related to back issues, has a history of disc herniation. Has been through physical therapy Health maintenance: Last colonoscopy-01/2021 with 5 year follow-up advised. Next due 01/2026 ROS: General: No fevers, malaise, unintentional weight loss HEENT: No blurred vision, diplopia. see hpi Cardiovascular: No chest pain, palpitations, or leg edema Respiratory: No shortness of breath, wheezing, cough MSK: see hpi Neuro: No headaches. +neuropathy Skin: No rashes or lesions EXAM: Constitutional - Awake and Alert, No apparent distress Eyes - PERRL Cardiovascular - S1S2, RRR, No edema Respiratory - Normal lung expansion, Normal respiratory effort, No respiratory distress, CTA bilaterally Extremities - no calf tenderness bilaterally, no swelling Skin - Warm/Dry Neurological - Alert & oriented x3 Psychological - Appropriate affect PFSH Medical History (Updated 12/18/24 @ 13:56 by PAOLA Mendez) Type 2 diabetes mellitus with cataract Obesity Colon polyps Diabetic neuropathy Overweight Hayfever Scoliosis Degenerative disc disease COVID-19 vaccine administered Lab test negative for COVID-19 virus Sleep apnea Primary osteoarthritis of right knee Diabetes Arthritis Back pain GERD (gastroesophageal reflux disease) COVID-19 virus antibody negative Asthma History of pericarditis Elevated cholesterol HTN (hypertension) Surgical History (Updated 12/18/24 @ 13:56 by PAOLA Mendez) S/P cataract extraction History of total right knee replacement Hx of colonoscopy H/O total hip arthroplasty Social History Household Members: Spouse and Children Housing: House Are you a primary career services coordinator to a significant other at home: No Do you presently have visiting nurse or other home services: No Alcohol intake: current Alcohol intake frequency: a few times a month Alcohol type: beer Patient Tobacco Use Status: Former Tobacco user Tobacco use type: Cigarette Second Hand Smoke Exposure: No service: No 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 1. Little interest or pleasure in doing things: not at all 2. Feeling down, depressed, or hopeless: not at all 3. Trouble falling or staying asleep, or sleeping too much: not at all 4. Feeling tired or having little energy: not at all 5. Poor appetite or overeating: not at all 6. Feeling bad about yourself - or that you are a failure or have let yourself or your family down: not at all 7. Trouble concentrating on things, such as reading the newspaper or watching television: not at all 8. Moving or speaking so slowly that other people could have noticed. Or the opposite - being so fidgety or restless that you have been moving around a lot more than usual: not at all 9. Thoughts that you would be better off or of hurting yourself in some way: not at all Total score: 0 Source: Developed by Drs. Rowdy Hussein, Tiffany Calero, Stevo Granados and colleagues, with an educational chelle from [employer]. Thrive Questionnaire Date Thrive assessed: 12/18/24 I am a: Patient Within the past 12 months, did the food you bought not last and you didn't have the money to get more?: Never true Within the past 12 months, did you worry whether your food would run out before you got money to buy more?: Never true Do you have trouble paying for medicines?: No Do you have trouble getting transportation to medical appointments?: No Do you have trouble paying your heating and electricity bill?: No Do you have trouble taking care of your child, family member or friend?: No Do you have trouble with day-to-day activities such as bathing, preparing meals, shopping, managing finances, etc.?: No Are you currently unemployed and looking for a job?: No Are you interested in more education?: No Please select the resources that you would like help with: None THRIVE Score: 0 ARIANA-7 AMB Questionnaire ARIANA-7 Date ARIANA - 7 assessed: 12/18/24 Feeling nervous, anxious, or on edge: 0 = Not at all Not being able to stop or control worryin = Not at all Worrying too much about different things: 0 = Not at all Trouble relaxin = Not at all Being so restless that it is hard to sit still: 0 = Not at all Becoming easily annoyed or irritable: 0 = Not at all Feeling afraid as if something awful might happen: 0 = Not at all Total ARIANA-7 score (0-4 normal; 5-9 mild; 10-14 moderate; 15-21 severe): 0 Source: Developed by Drs. Rowdy Hussein, Tiffany Calero, Stevo Granados and colleagues, with an educational chelle from [employer]. Physical exam (Primary Care) Vital Signs: Last Vital Signs Temp 97.3 F 12/18/24 13:20 Pulse 99 05/30/25 13:20 Resp 16 12/18/24 13:20 BP 146/84 H 12/18/24 13:48 Pulse Ox 99 12/18/24 13:20 Oxygen Delivery Method Room Air 12/18/24 13:20 BMI result Body Mass Index 33.9 Tobacco/Smoking Status: Tobacco use Status Patient Tobacco Use Status Former Tobacco user 12/18/24 13:16 Tobacco use type Cigarette 12/18/24 13:16 Coding Level of Care Code New Pt Level 4 (68188) Complex EM visit Add On G2211 Diagnoses HTN (hypertension) I10 Elevated cholesterol E78.00 Obesity E66.9 Type 2 diabetes mellitus with cataract E11.36 Assessment & Plan Assessment & Plan (1) HTN (hypertension): Code(s): I10 - Essential (primary) hypertension Category: Medical Plan: Uncontrolled with initial blood pressure 152/78 and 146/84 on recheck. Increase losartan to 50 mg daily. Continue diltiazem. Low-sodium diet advised and education provided. Renal function and electrolyte levels reviewed and are satisfactory. (2) Elevated cholesterol: Code(s): E78.00 - Pure hypercholesterolemia, unspecified Category: Medical Plan: Reviewed lipid panel. LDL slightly above goal at 78, goal less than 70. Continue rosuvastatin 10 mg daily. Did discuss diet recommendations including diet lower in saturated fat and highly processed foods. (3) Obesity: Code(s): E66.9 - Obesity, unspecified Category: Medical Plan: Recommend weight loss efforts. Discussed healthy diet including lower calories especially for find sugars and simple carbohydrates. Recommend increased protein intake with increased fruits and vegetables as well. Recommend regular exercise. (4) Type 2 diabetes mellitus with cataract: Code(s): E11.36 - Type 2 diabetes mellitus with diabetic cataract Category: Medical Plan: Uncontrolled with hemoglobin A1c 7.6%, goal less than 7.0%. We did discuss diabetic diet and efforts to improve this. We will increase glipizide to 5 mg ER daily. Continue metformin 1000 mg a.m. and 500 mg p.m.. Continue checking fasting glucose. Weight loss efforts as above. Diabetic eye exam is up-to-date with recent cataract extraction with improvement in vision. Orders: Orders Hemoglobin A1c 3 Months E11.36 - Type 2 diabetes mellitus with diabetic cataract Medications: New glipizide ER 5 mg PO DAILY 90 tabs 1RF losartan 50 mg PO DAILY 90 tabs 1RF
[2024-12-18 13:20] VITALS: BP 152/78; PULSE 99; RESP 16; TEMP 36.3; O2SAT 99; BMI 33.9
[2024-12-18 13:48] VITALS: BP 146/84
== END 2024-12-18 13:56 | disposition home or self-care (01) ==
LOC: HO.HMCHD 13:05
PROVIDERS: PCP Internal Medicine; Visit Provider Physician Assistant
DX: I10 Essential (primary) hypertension (principal); E78.00 Pure hypercholesterolemia, unspecified; E66.9 Obesity, unspecified; E11.36 Type 2 diabetes mellitus with diabetic cataract

== ENCOUNTER → 2024-12-18 13:05 | Outpatient (BNVA) | payer MEDICARE, SELFPAY | PROVIDERS: PCP Internal Medicine; Visit Provider Physician Assistant | DX: I10 Essential (primary) hypertension (principal); E78.00 Pure hypercholesterolemia, unspecified; E66.9 Obesity, unspecified; Z68.33 Body mass index [BMI] 33.0-33.9, adult; E11.36 Type 2 diabetes mellitus with diabetic cataract; H26.9 Unspecified cataract; K21.9 Gastro-esophageal reflux disease without esophagitis; Z79.899 Other long term (current) drug therapy | CPT/HCPCS: 96127; 99202 ==

== ENCOUNTER 2025-02-03 01:24 | Emergency (ER) | payer MEDICARE, SELFPAY ==
--- NOTE | 2025-02-03 | ECG_ITS ---
Test Reason : DIZZINESS Blood Pressure : */* mmHG Vent. Rate : 74 BPM Atrial Rate : 74 BPM P-R Int : 166 ms QRS Dur : 92 ms QT Int : 390 ms P-R-T Axes : 32 -19 10 degrees QTcB Int : 432 ms Normal sinus rhythm Minimal voltage criteria for LVH, may be normal variant ( R in aVL ) Cannot rule out Anterior infarct (cited on or before 16-Oct-2022) Abnormal ECG When compared with ECG of 16-Oct-2022 18:49, Premature atrial complexes are no longer Present Vent. rate has decreased by 56 bpm Referred By: Generic ED Physician Electronically Signed By: TATIANA CALLOWAY
[2025-02-03 01:29] VITALS: BP 150/82; PULSE 80; O2SAT 98
[2025-02-03 01:31] VITALS: BP 149/73; PULSE 81; RESP 12; TEMP 36.5; O2SAT 97; BMI 35.6
[2025-02-03 01:53] LABS: MANUAL DIFF FLAG NO
[2025-02-03 01:56] LABS: Hematocrit 38.9 % (42.0-52.0); Hemoglobin 13.5 g/dl (14.0-18.0); Imm Gran Abs Auto 0.04 X10*3/uL (0.00-0.03); Imm Gran Pct Auto 0.3 % (0.0-0.4); Lymphocytes Absolute Auto 1.7 X10*3/uL (1.2-4.9); Mean Corpuscular HGB Conc 34.7 g/dl (31.0-36.0); Mean Corpuscular Hemoglobin 29.6 pg (27.0-33.0); Mean Corpuscular Volume 85.3 fL (80.0-98.0); NRBC Abs Auto 0.000 X10*3/uL (0.0-0.012); NRBC Pct Auto 0.0 /100WBC (0.0-0.2); Platelet Count 235 X10*3/uL (160-400); Red Blood Count 4.56 X10*6/uL (4.60-5.80); White Blood Count 11.8 X10*3/uL (4.8-10.8)
--- OUTSIDE RECORDS SUMMARY | 2025-02-03 01:59 | XMS_ITS | Patient Health Record ---
Author Organization [facility] Address [address] [place] [address] Care Team Providers Care Melter Caster Name Role Phone Denny (RETIRED) Franklin MARTINEZ Primary Care Provide r Unavailable Boris Mota Jr Unavailable Reason For Referral No Information Medications Medication SIG (Take, Route, Frequency, Duration) Notes Start Date End Date Status Omeprazole 20 MG TAKE 1 CAPSULE BY MO UTH EVERY DAY Oral for 90 Active metFORMIN HCl 500 MG TAKE 2 PILLS BY NATALIO TH IN THE MORNING AND TAKE 1 TABLET WITH DINNER Oral for 90 Active dilTIAZem HCl ER Coated Beads 240 MG TAKE 1 CAPSULE BY MOUTH EVERY DAY IN THE MORNING Oral for 90 Active MiraLax (colon prep) 8.3 ounce ((238) grams mixed with Gatorade or Crystal Light orally begin at 5:00 p.m. the day before the procedure for 1 day 10/29/2019 Active Albuterol Sulfate HFA 108 (90 Base) MCG/ACT 1 puff as needed Inhalation every 4 hrs Active Losartan Potassium 25 MG TAKE 1 TABLET B Y MOUTH EVERY DAY Oral for 90 Active Rosuvastatin Calcium 5 MG TAKE 1 TABLET BY MOUTH EVERY DAY Oral for 90 Active Immunizations Vaccine Route Administration Date Status Comme nts Influenza Unknown 03/22/2019 Administered Social History Tobacco Use: Social History Observation Description Date Details (start date - stop date) Former Smoker NA - NA Tobacco Use/Smoking Question Answer Notes Patient is a former smoker How long has it been since you last smoked? 1-5 years Alcohol Screen Question Answer Notes Did you have a drink contain ing alcohol in the past year? Yes How often did you have a dri nk containing alcohol in the past year? 2 to 3 times a week (3 points) How many drinks did you have on a typical day when you were drinking in the past year? 1 or 2 drinks (0 point) Points 3 Interpretation Negative Problems Problem Type SNOMED Code ICD Code Onset Dates Problem Status W/U Status Risk Notes Problem 414204650 Colon cancer screening (Z12.11) Active confirmed Problem History of polyp of colon (situation) (493898978) Personal history of colonic polyps (Z86.010) Active confirmed Problem 439554922 Encounter for other preprocedural examination (Z01.818) Active confirmed Plan Of Treatment Future Test Test Name Order Date COLONOSCOPY 10/29/2019 Insurance Providers Payer Name Payer Address Payer Phone Subscriber Number Group Number Insured Name Patient Relationship to Insured Coverage Start Date Coverage End Date [employer] [place] [address] [address] [place] [address] [id number] EDEL FLORES Self - patient is the insured Medical (General) History Medical History History ICD Code pericarditis asthma type II diabetes hypertension elevated Cholesterol Surgical History Surgery Date(Month/Year) left hip replacement 01/2019
[2025-02-03 02:10] LABS: Alanine Aminotransferase 30 U/L (0-40); Albumin Level 4.1 g/dL (3.5-5.0); Alkaline Phosphatase 67 U/L (39-117); Anion Gap 15 (12-20); Aspartate Amino Transferase 20 U/L (5-37); Blood Urea Nitrogen 16 mg/dL (9-16); Calcium 8.2 mg/dL (8.4-10.2); Carbon Dioxide 23 mmol/L (22-29); Chloride 107 mmol/L (96-108); Creatinine Clr Calc Pharmacy 85.5; Estimated Glomerular Filt Rate > 60; Lipase 29 U/L (8-78); Magnesium 1.4 mg/dL (1.6-2.6); Potassium 3.8 mmol/L (3.3-5.1); Sodium 141 mmol/L (135-145); Total Protein 6.7 g/dL (6.5-8.0)
[2025-02-03 02:29] LABS: Resp Syncy Virus RNA Qual PCR NEGATIVE (Negative); SARS COV2 PCR INHOUSE NEGATIVE (Negative)
[2025-02-03 03:17] VITALS: BP 142/75; PULSE 75; RESP 18; O2SAT 96
[2025-02-03] MEDS: Magnesium Sulfate/H2O 2 GM/50 ML PIGGYBACK IV (04:08)
[2025-02-03 05:26] VITALS: BP 153/84; PULSE 82; RESP 16; TEMP 36.5; O2SAT 99
--- NOTE | 2025-02-03 07:31 | ED.NAVMDI ---
HPI - Nausea/Vomiting/Diarrhea General Chief complaint: Nausea/Vomiting/Diarrhea Stated complaint: Nausea and vomiting Time Seen by Provider: 02/03/25 03:52 Source: patient, EMS and RN notes reviewed Mode of arrival: EMS Limitations: no limitations History of Present Illness ED Provider: Dr. Aida Chamberlain HPI Narrative: 69 year old male with history of DM, HTN, SHANIQUE presenting with vomiting and epigastric abdominal pain ongoing for the last several hours after having [employer] for dinner. No reported diarrhea. Denies chest pain or difficulty breathing. No reported fever but has had the chills. No hematemesis. No one else is ill after eating the same foods. No recent travel or antibiotic use. Warren like he might pass out after vomiting so he called 911. Had been well prior to this. Related Data Home Medications ?Medication ?Instructions ?Recorded ?Confirmed diltiazem HCl 240 mg 1 cap PO QAM 04/19/20 12/18/24 capsule,extended release 24 hr metformin 500 mg tablet 1,000 mg PO QAM 04/19/20 12/18/24 metformin 500 mg tablet 500 mg PO QPM 04/19/20 12/18/24 rosuvastatin 10 mg tablet 10 mg PO BEDTIME 06/28/20 12/18/24 albuterol sulfate 90 mcg/actuation 2 puff inhalation Q4H PRN 10/17/22 12/18/24 aerosol inhaler Shortness Of Breath Or Wheezing Previous Rx's ?Medication ?Instructions ?Recorded omeprazole 20 mg capsule,delayed 1 cap PO DAILY 30 days #0 caps 08/30/20 release glipizide 5 mg tablet, extended 5 mg PO DAILY #90 tabs 12/18/24 release 24 hr losartan 50 mg tablet 50 mg PO DAILY #90 tabs 12/18/24 blood sugar diagnostic (OneTouch #200 ea 02/03/25 Ultra Test strips) blood-glucose meter (OneTouch #1 ea 02/03/25 Ultra2 Meter) lancets 30 gauge (OneTouch #200 ea 02/03/25 UltraSoft 2 Lancet) metoclopramide HCl 10 mg tablet 10 mg PO Q6H PRN nausea and 02/03/25 (Reglan) vomiting #10 tabs ondansetron 4 mg disintegrating 4 mg PO Q8H PRN nausea and 07/16/25 tablet vomiting #10 tabs Allergies Allergy/AdvReac Type Severity Reaction Status Date / Time No Known Allergies (No Known Allergy Verified 02/03/25 01:36 Allergies*) Review of Systems Review of Systems: as per HPI, full review of systems performed and negative but for the above mentioned pertinent positives and negatives. [facility] Past Medical History Attestation statement: The following information was validated with the patient. [facility] Narrative: HTN, DM Source: old records reviewed and nursing notes reviewed Medical History Type 2 diabetes mellitus with cataract Obesity Colon polyps Diabetic neuropathy Overweight Hayfever Scoliosis Degenerative disc disease COVID-19 vaccine administered Lab test negative for COVID-19 virus Sleep apnea Primary osteoarthritis of right knee Diabetes Arthritis Back pain GERD (gastroesophageal reflux disease) COVID-19 virus antibody negative Asthma History of pericarditis Elevated cholesterol HTN (hypertension) Surgical History S/P cataract extraction History of total right knee replacement Hx of colonoscopy H/O total hip arthroplasty Social History Social History Household Members: Spouse and Children Housing: House Are you a primary career and transition teacher to a significant other at home: No Do you presently have visiting nurse or other home services: No Alcohol intake: current Alcohol intake frequency: a few times a month Alcohol type: beer Patient Tobacco Use Status: Former Tobacco user Tobacco use type: Cigarette Second Hand Smoke Exposure: No Advance Directives: Yes Advance Directives Information Provided: Yes Advance Directives on File: No Do you have a plan to hurt others: No Plan service: No 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 SKIN: Normal skin color for ethnicity, warm, dry, no rashes noted. HEENT:? Normocephalic, atraumatic, no stridor, dry mucous membranes, dentition intact, EOMI. NECK: Soft, supple, full ROM, midline structures nontender, no step-offs, no deformities, no lymphadenopathy. CHEST: Heart regular tachycardia, no murmurs, symmetric chest rise and fall. PULMONARY: Clear to auscultation bilaterally, diminished at the bases, no labored breathing, no wheezes/rhales/rhonchi. ABDOMINAL: Soft, nondistended, nontender, hyperactive bowel sounds in all quadrants. : Deferred. MUSCULOSKELETAL: Normal tone, full range of motion, no deformities, no peripheral edema. NEURO: Alert and oriented x3, CN II through XII intact, equal strength and sensation bilateral upper and lower extremities, no focal neurologic deficits.? PSYCHIATRIC: Flat affect, fluid speech, good eye contact and appropriate demeanor. Medications Administered Discontinued Medications Generic Name Dose Route Start Last Admin Trade Name Freq PRN Reason Stop Dose Admin Magnesium Sulfate 2 gm in 50 mls @ 25 mls/hr 02/03/25 03:52 02/03/25 06:08 Magnesium Sulfate/H2o IV 02/03/25 05:51 Infused ONCE ONE Infusion Prochlorperazine Edisylate 10 mg 02/03/25 06:08 02/03/25 06:29 Prochlorperazine Edisylate 10 Mg/2 Ml Vial IVPUSH 02/03/25 06:09 10 mg ONCE ONE Administration Medical Decision Making Medical Decision Making [facility] Narrative: Patient presents today with a chief complaint of vomiting. Differential diagnosis includes surgical emergency such as obstruction, enteritis, hyperglycemia, acidosis, food or drug ingestion, pancreatitis, CVA, allergic reaction such as anaphylaxis, cannabis hyperemesis syndrome or cyclic vomiting syndrome, among many others.? Patient is not showing signs of acute dehydration or hemodynamic instability.? They are having associated abdominal pain. ? Broad-based work-up was initiated based on above history and physical exam. Patient improving after fluids and multiple doses of antiemetics. Labwork is reassuring. He is ambulatory in the ED without issue. EKG is nonischemic. Using shared decision making, plan for discharge home to follow-up with primary care and/or specialist.? Patient understands and agrees with plan for discharge.? Discharged home in stable condition. Differential Diagnosis Differential Diagnoses: The differential diagnosis associated with the presentation includes (as above) Admission/Observation Consideration of admission/observation: Escalation of care including admission/observation considered Lab Data MDM Lab Attestation statement: I reviewed the patient's lab results. 02/03/25 01:45 02/03/25 01:45 Labs: Lab Results 02/03/25 02/03/25 Range/Units 01:42 01:45 WBC 11.8 H (4.8-10.8) X10*3/uL RBC 4.56 L (4.60-5.80) X10*6/uL Hgb 13.5 L (14.0-18.0) g/dl Hct 38.9 L (42.0-52.0) % MCV 85.3 (80.0-98.0) fL MCH 29.6 (27.0-33.0) pg MCHC 34.7 (31.0-36.0) g/dl RDW 13.2 (11.0-16.0) % Plt Count 235 (160-400) X10*3/uL MPV 10.4 (9.4-12.4) fL Immature Gran % (Auto) 0.3 (0.0-0.4) % Neut % (Auto) 76.2 H (45-73) % Lymph % (Auto) 14.0 L (20-40) % Churchill % (Auto) 6.1 (2-11) % Eos % (Auto) 3.0 (0-4) % Baso % (Auto) 0.4 (0-2) % Lymph # (Auto) 1.7 (1.2-4.9) X10*3/uL Churchill # (Auto) 0.7 (0.1-1.2) X10*3/uL Eos # (Auto) 0.4 (0.0-0.4) X10*3/uL Baso # (Auto) 0.1 (0.0-0.2) X10*3/uL Abs Immat Gran (auto) 0.04 H (0.00-0.03) X10*3/uL Absolute Neuts (auto) 9.0 H (2.0-8.3) x10*3/uL Absolute Nucleated RBC 0.000 (0.0-0.012) X10*3/uL Nucleated RBC % (auto) 0.0 (0.0-0.2) /100WBC Sodium 141 (135-145) mmol/L Potassium 3.8 (3.3-5.1) mmol/L Chloride 107 (96-108) mmol/L Carbon Dioxide 23 (22-29) mmol/L Anion Gap 15 (12-20) BUN 16 (9-16) mg/dL Creatinine 1.07 (0.5-1.4) mg/dL Estim Creat Clear Calc 85.5 Estimated GFR > 60 Random Glucose 213 H (60-115) mg/dL Calcium 8.2 L D (8.4-10.2) mg/dL Magnesium 1.4 L* (1.6-2.6) mg/dL Total Bilirubin 0.2 (0.0-1.0) mg/dL AST 20 (5-37) U/L ALT 30 (0-40) U/L Alkaline Phosphatase 67 (39-117) U/L Total Protein 6.7 (6.5-8.0) g/dL Albumin 4.1 (3.5-5.0) g/dL Lipase 29 (8-78) U/L Influenza Type A (PCR) NEGATIVE (Negative) Influenza Type B (PCR) NEGATIVE (Negative) RSV RNA Qual (PCR) NEGATIVE (Negative) SARS-CoV-2 RNA (RT-PCR) NEGATIVE (Negative) Independent Historian Clinical information obtained from an independent historian. History obtained from or confirmed by: EMS Prescription Management I considered prescription management with: Pain Medication and Other (antiemetic) Chronic Conditions Patient?s care impacted by: Diabetes and Hypertension Discharge Plan Discharge Clinical Impression: Food poisoning, Hypomagnesemia Patient Disposition: Home, Self-Care Instructions: Food Poisoning (ED) Additional Instructions: Return to the emergency room with any new or worsening symptoms including: Vomiting despite medications, fevers greater than 100?, passing out, chest pain, difficulty breathing, any new symptom that concerns you. Call 911 with any medical emergency. Prescriptions: New ondansetron 4 mg tablet,disintegrating 4 mg PO Q8H PRN (Reason: nausea and vomiting) Qty: 10 0RF metoclopramide HCl [Reglan] 10 mg tablet 10 mg PO Q6H PRN (Reason: nausea and vomiting) Qty: 10 0RF No Action (DME) blood-glucose meter [OneTouch Ultra2 Meter] Misc See Rx Instructions .Route Qty: 1 0RF Rx Instructions: As directed (DME) OneTouch Ultra Test Strip See Rx Instructions .Route Qty: 200 1RF Rx Instructions: Use to check glucose twice daily (DME) lancets [OneTouch UltraSoft 2 Lancet] 30 gauge misc See Rx Instructions .Route Qty: 200 1RF Rx Instructions: Usage check glucose twice daily metformin 500 mg Tablet 1,000 mg PO QAM metformin 500 mg Tablet 500 mg PO QPM diltiazem HCl 240 mg capsule,extended release 24hr 1 cap PO QAM rosuvastatin 10 mg tablet 10 mg PO BEDTIME omeprazole 20 mg capsule,delayed release(DR/EC) 1 cap PO DAILY 30 Days Qty: 0 0RF albuterol sulfate 90 mcg/actuation HFA aerosol inhaler 2 puff INHALATION Q4H PRN (Reason: Shortness Of Breath Or Wheezing) losartan 50 mg tablet 50 mg PO DAILY Qty: 90 1RF glipizide 5 mg tablet extended release 24hr 5 mg PO DAILY Qty: 90 1RF Interventions: ED Discharge Assessment Last Done: 02/03/25 08:04 Discharge Date/Time: 02/03/25 08:04 Print Language: Ukrainian
[2025-02-03 07:53] VITALS: BP 146/76; PULSE 93; RESP 16; TEMP 36.4; O2SAT 98
[2025-02-03 08:04] VITALS: BP 146/76; PULSE 93; RESP 16; TEMP 36.4; O2SAT 98
== END 2025-02-03 08:04 | disposition home or self-care (01) ==
PROVIDERS: Emergency Provider Emergency Medicine; PCP Internal Medicine
DX: A05.9 Bacterial foodborne intoxication, unspecified (principal); E83.42 Hypomagnesemia; R11.2 Nausea with vomiting, unspecified; R10.13 Epigastric pain; Z87.891 Personal history of nicotine dependence; Z79.899 Other long term (current) drug therapy; Z03.818 Encounter for observation for suspected exposure to other biological agents ruled out
CPT/HCPCS: 80053; 83690; 83735; 85025; 87637; 93005; 96365; 96366; 96375; 99284; 99285; J0737; J3475

== ENCOUNTER → 2025-02-03 01:30 | Outpatient (BNV) | payer MEDICARE, SELFPAY | PROVIDERS: Emergency Provider Emergency Medicine; PCP Internal Medicine; Visit Provider Internal Medicine | DX: R94.31 Abnormal electrocardiogram [ECG] [EKG] (principal); R42 Dizziness and giddiness | CPT/HCPCS: 93010 ==

== ENCOUNTER 2025-04-05 11:44 | Outpatient (REF) | payer MEDICARE, SELFPAY ==
[2025-04-05 14:33] LABS: Hemoglobin A1C 214.2795 umol/L; Total Hemoglobin (HGBA1C) 3948.1020 umol/L
--- OUTSIDE RECORDS SUMMARY | 2025-04-05 16:18 | XMS_ITS | Patient Health Record ---
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 Name Role Phone EmelynYvonne sandoval Primary Care Provider Unavailabl e Black, Jessica Unavailable [phone] Allergies No Known Allergies Results Component Value Reference Range Notes HEMOGLOBIN A1C (GLYCOHEMOGLO BIN) Reviewed date:08/03/2024 11:16:45 AM Interpretation: Performing Lab: Notes/Report: HEMOGLOBIN A1C % (HH) 7.6 HEMOGLOBIN A1C (GLYCOHEMOGLO BIN) Reviewed date:11/02/2024 10:24:42 AM Interpretation: Performing Lab: Notes/Report: HEMOGLOBIN A1C % (HH) 7.6 Reason For Referral No Information Medications Medication SIG (Take, Route, Frequency, Duration) Notes Start Date End Date Status metFORMIN HCl 500 MG (Prior Auth#:[id number]) Oral; Duration: 90 Active Rosuvastatin Calcium 5 MG (Prior Auth#:[id number]) Oral; Duration: 90 Active dilTIAZem HCl ER Beads 240 MG 1 capsule Orally Once a day; Duration: 30 day(s) Active glipiZIDE XL 2.5 MG 1 tablet with breakf ast Orally Once a day; Duration: 30 day(s) Active Losartan Potassium 25 MG (Prior Auth#:[id number]) Oral; Duration: 90 Active Omeprazole 20 MG (Prior Auth#:[id number]) Oral; Duration: 90 Active Ammonium Lactate 12 % 1 APPLICATION EXTERNALLY TWICE A DAY 30 DAYS; Duration: 30 Active Aspirin 81 81 MG 1 tablet Orally Once a day; Duration: 30 day(s) Not-Taking Immunizations Vaccine Route Administration Date Status Comme nts Influenza Unknown 03/23/2019 Administered Influenza Unknown 03/22/2022 Administered Influenza Unknown 03/22/2023 Administered Influenza Unknown 03/22/2024 Administered COVID-19 Pfizer BioNTech Vaccine Unknown 07/30/2020 Administered 1st dose 020 Social History Tobacco Use: Social History Observation [...] Are you an other tobacco user? No AUDIT-C (Standard) Question Answer Notes Did you have a drink containing alcohol in the p ast year? No Points 0 Interpretation Negative Problems Problem Type SNOMED Code ICD Code Onset Dates Problem Status W/U Status Risk Notes Problem Polyneuropathy due to type 2 diabetes mellitus (715951998) Type 2 diabetes mellitus with diabetic polyneuropathy (E11.42) Active confirmed Vital Signs Blood pressure diastolic 80 mm Hg 02/08/2025 Height [id number] in 02/08/2025 Blood pressure systolic 132 mm Hg 02/08/2025 Weight 243 lbs 02/08/2025 BMI 34.86 kg/m2 02/08/2025 Procedures Procedure Date Ordered Date Performed Result Body Sit e 45109-DNPO SKIN LESIONS, 2 TO 4 04/23/2024 N/A W4118-UJSYZXDX DYSTROPHIC NAILS ANY # 04/23/2024 N/A 38007-PZLZ SKIN LESIONS, 2 TO 4 08/03/2024 N/A T2435-DTOWASSV DYSTROPHIC NAILS ANY # 08/03/2024 N/A 77979-ELCT SKIN LESIONS, 2 TO 4 11/02/2024 N/A V5749-MPUJUMZN DYSTROPHIC NAILS ANY # 11/02/2024 N/A 51054-JXCM SKIN LESIONS, 2 TO 4 02/08/2025 N/A P0312-EQKBYBGL DYSTROPHIC NAILS ANY # 02/08/2025 N/A Encounters Encounter Location Date Provider Diagnosis [address] [address] 04/23/2024 Jessica Black Type 2 diabetes mellitus with diabetic polyneuropathy E11.42 and Xerosis of skin L85.[address] [address] 08/03/2024 Jessica Black Type 2 diabetes mellitus with diabetic polyneuropathy E11.42 ; Other hammer toe(s) (acquired), right foot M20.41 ; Xerosis of skin L85.3 and Other hammer toe(s) (acquired), left foot M20.[address] [address] 11/02/2024 Jessica Black Type 2 diabetes mellitus with diabetic polyneuropathy E11.[address] [address] 02/08/2025 Jessica Black Type 2 diabetes mellitus with diabetic polyneuropathy E11.42 ; Metatarsalgia, right foot M77.41 ; Pain in right foot M79.671 ; Pain in right ankle and joints of right foot M25.571 and Bursitis of intermetatarsal bursa of right foot M77.51 Assessments Encounter Date Diagnosis (ICD Code) Assessment [...] mellitus with diabetic polyneuropathy (ICD-10 - E11.42) 02/08/2025 Metatarsalgia, right foot (ICD-10 - M77.41) 02/08/2025 Type 2 diabetes mellitus with diabetic polyneuropathy (ICD-10 - E11.42) 02/08/2025 Pain in right foot (ICD-10 - M79.671) 08/03/2024 Xerosis of skin (ICD-10 - L85.3) 04/23/2024 Xerosis of skin (ICD-10 - L85.3) 08/03/2024 Other hammer toe(s) (acquired), left foot (ICD-10 - M20.42) 02/08/2025 Pain in right ankle and joints of right foot (ICD-10 - M25.571) 02/08/2025 Bursitis of intermetatarsal bursa of right foot (ICD-10 - M77.51) 11/02/2024 Other Plan Of Treatment Pending Test Test Name Order Date 96049-MVOXRLD NAIL, 1-02/15/2020 21129-JETEGOT NAIL, -02/09/2021 45863-BMUZWTZ NAIL, -04/05/2022 65796-KRWFUSM NAIL, -04/04/2023 36887-XALPBBB NAIL, -07/01/2023 04548-IQWQUIZ NAIL, 1-10/03/2023 68595-KAJC SKIN LESIONS, 2 TO 4 01/16/20 24 08356-HWRT SKIN LESIONS, 2 TO 4 04/23/20 24 15484-PRRK SKIN LESIONS, 2 TO 4 10/03/19 24 70534-DQRM SKIN LESIONS, 2 TO 4 07/01/20 23 15094-MSHB SKIN LESIONS, 2 TO 4 02/15/20 20 96703-UWRO SKIN LESIONS, 2 TO 4 04/05/20 22 12022-SIHN SKIN LESIONS, 2 TO 4 02/10/20 21 39425-RCGH SKIN LESIONS, 2 TO 4 08/03/19 25 57458-YFQW SKIN LESIONS, 2 TO 4 11/03/19 25 95728-YOZM SKIN LESIONS, 2 TO 4 02/09/20 25 11598-SYXA SKIN LESIONS, 2 TO 4 04/04/20 23 49004-PXYI NAIL(S) 02/09/2021 19990-BOHB NAIL(S) 04/05/2022 M5965-PAWTQCZF DYSTROPHIC NAILS ANY # K1689-HKPKLPWG DYSTROPHIC NAILS ANY # Y0025-SYQXGMRD DYSTROPHIC NAILS ANY # B3463-ADLJQLNK DYSTROPHIC NAILS ANY # C7659-QCGJJWSY DYSTROPHIC NAILS ANY # Next Appt Details Provider Name:Jessica Mclaughlin , 05/10/2025 11:30:00 AM, [address] [facility], [place], [address], Insurance Providers Payer Name Payer Address Payer Phone Subscriber Number Group Number Insured Name Patient Relationship to Insured Coverage Start Date Coverage End Date [facility] 65 Medicare Preferred [address] [place] [address] [phone] [id number] Joe Arreguin Self - patient is the insured Medical (General) History Medical History History ICD Code asthma Back,Hip,and Knee pain Chicken pox type II diabetes High blood pressure Joint implants/screws Reflux chronic sinusitis Cataracts Other hammer toe(s) (acquired), left jc t M20.42 Other hammer toe(s) (acquired), right fo ot M20.41 Surgical History Surgery Date(Month/Year) knee replacement hip replacement wisdom teeth extraction colonoscopy cataracts 09/2024 Hospitalization History Reason Date(Month/Year) ER- vomiting 02/12 [facility]-Dehydration 10/11
--- OUTSIDE RECORDS SUMMARY | 2025-04-05 16:18 | XMS_ITS | Patient Health Record ---
Author Organization [facility] Address [address] [place] [address] Care Team Providers Care Supervisor Alteration Workroom Name Role Phone Denny (RETIRED) Franklin MARTINEZ [...] Problem Status W/U Status Risk Notes Problem [id number] Colon cancer screening (Z12.11) Active confirmed Problem History of polyp of colon (situation) (676809513) Personal history of colonic polyps (Z86.010) Active confirmed Problem 673560661 Encounter for other preprocedural examination (Z01.818) Active confirmed Plan Of Treatment Future Test Test Name Order Date COLONOSCOPY 10/29/2019 Insurance Providers Payer Name Payer Address Payer Phone Subscriber Number Group Number Insured Name Patient Relationship to Insured Coverage Start Date Coverage End Date [employer] [place] [address] [address] [place] [address] [id number] EDEL FLORES Self - patient is the insured Medical (General) History Medical History History ICD Code pericarditis asthma type II diabetes hypertension elevated Cholesterol Surgical History Surgery Date(Month/Year) left hip replacement 01/2019
== END 2025-04-05 11:45 | disposition home or self-care (01) ==
LOC: HO.WFDLDS 11:44
PROVIDERS: Visit Provider Physician Assistant
DX: E11.36 Type 2 diabetes mellitus with diabetic cataract (principal)
CPT/HCPCS: 36415; 83036

== ENCOUNTER 2025-04-09 10:00 | Outpatient (AMB) | payer MEDICARE, SELFPAY ==
--- NOTE | 2025-04-09 10:02 | MHC.PC.OV ---
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 Accompanied by: Self / Same As Patient Allergies No Known Allergies (No Known Allergies*) Allergy (Verified 04/09/25 10:03) Medication List - Last Reconciled 04/09/25 by PAOLA Mendez albuterol sulfate 90 mcg/actuation 2 puffs inhalation Q4H PRN blood sugar diagnostic (ZindigoTouch Ultra Test strips) Use to check glucose twice daily blood-glucose meter (SensGarduch Ultra2 Meter) As directed CPAP n 20 mask and headset diltiazem HCl CD 1 cap PO QAM glipizide ER 5 mg PO DAILY lancets (ZindigoTouch UltraSoft 2 Lancet) Usage check glucose twice daily losartan 50 mg PO DAILY metformin 1,000 mg PO QAM metformin 500 mg PO QPM omeprazole 1 cap PO DAILY 30 days rosuvastatin 10 mg PO BEDTIME HPI HPI Comments History of Present Illness Details 69-year-old male with history of type 2 diabetes, hypertension, hyperlipidemia, GERD and class 1 obesity presents to the office today for management of chronic conditions and to establish care. He has no new concerns today. Type 2 diabetes-last hemoglobin A1c 7.1%. Has diabetic cataracts, recently underwent extraction bilaterally, and neuropathy that is not overly bothersome. Currently compliant with metformin 1000 mg every morning and 500 mg every evening. Glipizide increased to 5 mg ER daily at last visit. Currently fasting glucose typically ranges 131-160. He has improved diet. Hypertension-controlled 134/68. He is currently taking increased dose losartan 50mg daily and diltiazem. He does not follow low-sodium diet. Hyperlipidemia-last LDL 78, total cholesterol 145. Compliant with rosuvastatin 10 mg daily. Obesity-he is working to improve his diet. Not currently exercising. Reports this is related to back issues, has a history of disc herniation. Has been through physical therapy SHANIQUE- compliant with CPAP use-all night. uses 8cm water pressure with auto titrate machine 7-10, AHI ranging about 2.0-4.0 on average. Requesting refills of and 20 mask as well as stptsvr-ghc-bd-pocket. No pulmonology. 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 Neuropathy BLE occ. Describes as irritating, improves with rest. Becoming more frequent. Radiation primarily when walking. Sitting OK. Not taking anything for this as it is short lived. 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 Not interested in PT, not interested in gabapentin. Health maintenance: Last colonoscopy-01/2021 with 5 year follow-up advised. Next due 01/2026 ROS: General: No fevers, malaise, unintentional weight loss HEENT: No blurred vision, diplopia. see hpi Cardiovascular: No chest pain, palpitations, or leg edema Respiratory: No shortness of breath, wheezing, cough MSK: see hpi Neuro: No headaches. +neuropathy Skin: No rashes or lesions EXAM: Constitutional - Awake and Alert, No apparent distress Eyes - PERRL Cardiovascular - S1S2, RRR, No edema Respiratory - Normal lung expansion, Normal respiratory effort, No respiratory distress, CTA bilaterally Extremities - no calf tenderness bilaterally, no swelling Skin - Warm/Dry Neurological - Alert & oriented x3 Psychological - Appropriate affect [facility] Medical History (Updated 04/09/25 @ 10:30 by PAOLA Mendez) Mild intermittent asthma SHANIQUE (obstructive sleep apnea) Type 2 diabetes mellitus with cataract Obesity Colon polyps Diabetic neuropathy Overweight Hayfever Scoliosis Degenerative disc disease COVID-19 vaccine administered Lab test negative for COVID-19 virus Sleep apnea Primary osteoarthritis of right knee Diabetes Arthritis Back pain GERD (gastroesophageal reflux disease) COVID-19 virus antibody negative Asthma History of pericarditis Elevated cholesterol HTN (hypertension) Surgical History S/P cataract extraction History of total right knee replacement Hx of colonoscopy H/O total hip arthroplasty Social History Household Members: Spouse and Children Housing: House Are you a primary acute care occupational therapist to a significant other at home: No Do you presently have visiting nurse or other home services: No Alcohol intake: current Alcohol intake frequency: a few times a month Alcohol type: beer Patient Tobacco Use Status: Former Tobacco user Tobacco use type: Cigarette Second Hand Smoke Exposure: No service: No Current occupational 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 Rowdy Hussein, Tiffany Calero, Stevo Granados and colleagues, with an educational chelle from [employer]. Physical exam (Primary Care) Vital Signs: Last Vital Signs Temp 97.2 F 04/09/25 10:06 Pulse 92 04/09/25 10:06 Resp 14 04/09/25 10:06 BP 134/68 04/09/25 10:06 Pulse Ox 99 04/09/25 10:06 Oxygen Delivery Method Room Air 04/09/25 10:06 BMI result Body Mass Index 35.0 Tobacco/Smoking Status: Tobacco use Status Patient Tobacco Use Status Former Tobacco user 04/09/25 10:03 Tobacco use type Cigarette 04/09/25 10:03 Thrive Assessment: Date of Thrive Assessment Date Thrive assessed 12/18/24 04/09/25 10:03 Coding Level of Care Code Est Pt Level 4 (02295) Complex EM visit Add On G2211 Diagnoses HTN (hypertension) I10 Elevated cholesterol E78.00 Obesity E66.9 Type 2 diabetes mellitus with cataract E11.36 SHANIQUE (obstructive sleep apnea) G47.33 Type 2 diabetes mellitus with polyneuropathy E11.42 Assessment & Plan Assessment & Plan (1) HTN (hypertension): Code(s): I10 - Essential (primary) hypertension Category: Medical Plan: Controlled. Continue losartan to 50 mg daily. Continue diltiazem. Low-sodium diet advised and education provided. Renal function and electrolyte levels reviewed and are satisfactory. (2) Elevated cholesterol: Code(s): E78.00 - Pure hypercholesterolemia, unspecified Category: Medical Plan: Reviewed lipid panel. LDL slightly above goal at 78, goal less than 70. Continue rosuvastatin 10 mg daily. Did discuss diet recommendations including diet lower in saturated fat and highly processed foods. (3) Obesity: Code(s): E66.9 - Obesity, unspecified Category: Medical Plan: Recommend weight loss efforts. Discussed healthy diet including lower calories especially for find sugars and simple carbohydrates. Recommend increased protein intake with increased fruits and vegetables as well. Recommend regular exercise including resistance (4) Type 2 diabetes mellitus with cataract: Code(s): E11.36 - Type 2 diabetes mellitus with diabetic cataract Category: Medical Plan: Improved and reasonably controlled for age. Continue diabetic diet. To continue glipizide 5 mg ER daily. Continue metformin 1000 mg a.m. and 500 mg p.m.. Continue checking fasting glucose. Weight loss efforts as above. Diabetic eye exam is up-to-date with recent cataract extraction with improvement in vision. (5) SHANIQUE (obstructive sleep apnea): Code(s): G47.33 - Obstructive sleep apnea (adult) (pediatric) Category: Medical Plan: Continue with CPAP use, supplies ordered (6) Type 2 diabetes mellitus with polyneuropathy: Code(s): E11.42 - Type 2 diabetes mellitus with diabetic polyneuropathy Plan: Declines gabapentin at this time, we will consider if worsening Plan Return in the office in 4 months with labs completed prior to visit. Not interested in a referral to PT at this time for chronic low back pain, but will notify office if he changes his mind Orders: Orders Basic Metabolic Panel 4 Months E11.9 - Type 2 diabetes mellitus without complications, E78.00 - Pure hypercholesterolemia, unspecified, I10 - Essential (primary) hypertension, J45.20 - Mild intermittent asthma, uncomplicated Lipid Panel 4 Months E11.9 - Type 2 diabetes mellitus without complications, E78.00 - Pure hypercholesterolemia, unspecified, I10 - Essential (primary) hypertension, J45.20 - Mild intermittent asthma, uncomplicated Hemoglobin A1c 4 Months E11.9 - Type 2 diabetes mellitus without complications, E78.00 - Pure hypercholesterolemia, unspecified, I10 - Essential (primary) hypertension, J45.20 - Mild intermittent asthma, uncomplicated Liver Panel 4 Months E11.9 - Type 2 diabetes mellitus without complications, E78.00 - Pure hypercholesterolemia, unspecified, I10 - Essential (primary) hypertension, J45.20 - Mild intermittent asthma, uncomplicated Prostate Specific Antigen 4 Months E11.9 - Type 2 diabetes mellitus without complications, E78.00 - Pure hypercholesterolemia, unspecified, I10 - Essential (primary) hypertension, J45.20 - Mild intermittent asthma, uncomplicated Medications: New albuterol sulfate 90 mcg/actuation 2 puffs inhalation Q4H PRN 8.5 grams 1RF Shortness Of Breath Or Wheezing CPAP n 20 mask and headset 1 ea 0RF G47.33 - Obstructive sleep apnea (adult) (pediatric)
[2025-04-09 10:06] VITALS: BP 134/68; PULSE 92; RESP 14; TEMP 36.2; O2SAT 99; BMI 35.0
== END 2025-04-09 10:35 | disposition home or self-care (01) ==
LOC: HO.HMCHD 10:01
PROVIDERS: PCP Internal Medicine; Visit Provider Physician Assistant
DX: I10 Essential (primary) hypertension (principal); E78.00 Pure hypercholesterolemia, unspecified; E66.9 Obesity, unspecified; E11.36 Type 2 diabetes mellitus with diabetic cataract; G47.33 Obstructive sleep apnea (adult) (pediatric); E11.42 Type 2 diabetes mellitus with diabetic polyneuropathy

== ENCOUNTER → 2025-04-09 10:00 | Outpatient (BNVA) | payer MEDICARE, SELFPAY | PROVIDERS: PCP Internal Medicine; Visit Provider Physician Assistant | DX: I10 Essential (primary) hypertension (principal); E78.00 Pure hypercholesterolemia, unspecified; E66.9 Obesity, unspecified; Z68.35 Body mass index [BMI] 35.0-35.9, adult; E11.36 Type 2 diabetes mellitus with diabetic cataract; G47.33 Obstructive sleep apnea (adult) (pediatric); E11.42 Type 2 diabetes mellitus with diabetic polyneuropathy; E78.5 Hyperlipidemia, unspecified; Z79.84 Long term (current) use of oral hypoglycemic drugs; Z79.899 Other long term (current) drug therapy; Z99.89 Dependence on other enabling machines and devices | CPT/HCPCS: 99212 ==